=== PATIENT | female | born 1950 | race Caucasian/White ===

== ENCOUNTER 2025-01-14 03:48 | Outpatient (CLI) | payer MEDICARE, SELFPAY | END 2025-01-14 03:49 | disposition home or self-care (01) | LOC: AMB 01-16 08:35 | PROVIDERS: PCP Family Medicine; Visit Provider Family Medicine | DX: S89.92XA Unspecified injury of left lower leg, initial encounter (principal); S59.912A Unspecified injury of left forearm, initial encounter; W18.30XA Fall on same level, unspecified, initial encounter; Y92.002 Bathroom of unspecified non-institutional (private) residence as the place of occurrence of the external cause | CPT/HCPCS: A0425; A0427 ==

== ENCOUNTER 2025-01-14 04:37 | Inpatient (IN) | payer MEDICARE, SELFPAY ==
--- OUTSIDE RECORDS SUMMARY | 2022-05-26 06:48 | XMS_ITS | Continuity of Care Document ---
Author Organization [facility] Address [address] [address] [place] [address] Phone Care Team Providers Care Actuarial Science Professor Name Role Phone Elías Pérez MD Unavailable Unavailabl e Advance Directives Directive Yes / No Effective Date File Name No Information Encounters Encounter Description Practice Location Reason(s) For Visit Diagnoses Date Provider Providers Copied on Encounter [facility], [address] [address], [place], [place], [id number], tel:[phone] [facility] No Information 2 Elijah Mckinley. [address] [facility], [address], [id number] , [place]. tel:[phone] [facility], [address] [address], [place], [place], [id number], [place] tel:[phone] [facility] No Information 2 Elijah Mckinley. [address] [facility], [address], [id number] , [place]. tel:[phone] [facility], [address] [address], [place], [place], [id number], [place] [phone] [facility] External Referral 5 Julián Brown. [address] [facility], [address], [id number] , [place]. tel:[phone] Referring Provider: Becca Troy MD L, [address] [facility] [address], [place], [address]. tel:[phone] Family History Family Member Type Diagnosis Age [...]
[2025-01-14] VITALS (39 sets, daily range): BP systolic 83–142; BP diastolic 25–85; PULSE 73–122; RESP 12–20; TEMP 35.8–36.9; O2SAT 88–96; BMI 23.6
--- NOTE | 2025-01-14 04:40 | ED.FALL ---
HPI - Fall General Time Seen by Provider: 04:41 Date Seen: 01/14/25 Chief Complaint: Fall/Minor Trauma Stated Complaint: fall, left arm and hip pain Time Seen by Provider: 01/14/25 04:39 Source: patient and EMS Mode of arrival: EMS Limitations: no limitations History of Present Illness HPI Narrative: 74-year-old female presents today after a fall. Patient since she got up to go to the bathroom and lost her balance. Denies chest pain, palpitations, lightheadedness. Denies recent illness. Complains are pain in the left arm and left leg. Denies head injury or loss of conscious. Related Data Home Medications ?Medication ?Instructions ?Recorded ?Confirmed clomipramine 50 mg capsule 50 mg PO BID 01/14/25 01/14/25 meclizine 25 mg tablet 25 mg PO DAILY PRN dizziness 01/14/25 01/14/25 omeprazole 20 mg capsule,delayed 20 mg PO QAM 01/14/25 01/14/25 release Previous Rx's ?Medication ?Instructions ?Recorded peg 3350-electrolytes 236 240 ml PO Q10M #4,000 mL 04/05/23 gram-22.74 gram-6.74 gram-5.86 gram solution (Golytely) Allergies Allergy/AdvReac Type Severity Reaction Status Date / Time codeine Allergy Mild Vomiting Verified 01/14/25 04:57 hydrocodone Allergy Mild Anxiety Verified 01/14/25 04:57 Penicillins Allergy Unknown Verified 01/14/25 04:57 PFSH PFS Medical History (Updated 01/14/25 @ 06:30 by Tom Perez MD) Kidney stone ?N20.0 - Calculus of kidney (ICD-10) GERD (gastroesophageal reflux disease) ?K21.9 - Gastro-esophageal reflux disease without esophagitis (ICD-10) Depression ?F32.A - Depression, unspecified (ICD-10) Septic shock due to Escherichia coli ?A41.51 - Sepsis due to Escherichia coli [E. 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.4 - Kidney donor (ICD-10) Meniere disease ?H81.09 - Meniere's disease, unspecified ear (ICD-10) COPD (chronic obstructive pulmonary disease) ?J44.9 - Chronic obstructive pulmonary disease, unspecified (ICD-10) H/O traumatic brain injury ?Z87.820 - Personal history of traumatic brain injury (ICD-10) DIC (disseminated intravascular coagulation) ?D65 - Disseminated intravascular coagulation [defibrination syndrome] (ICD-10) Acute hypoxic respiratory failure ?J96.01 - Acute respiratory failure with hypoxia (ICD-10) Social History Smoking Status: Former smoker What tobacco products do you use: cigarettes Smoking packs per day: 0.8 Smoking cigarettes per day: 16.0 Years smoked: 50 Smoking pack-years: 40.00 Smoking quit date/years: <= 15 years ago Do you use any of these nicotine containing products: None Second hand tobacco smoke exposure: No How often do you have a drink containing alcohol: never AUDIT-C Alcohol total score: 0 Non-prescribed substance use: denies use service: No Exam Narrative: Exam Narrative: General: Well-developed and well-nourished, no acute distress Head: Atraumatic and normocephalic Eyes: Pupils are equal reactive, extraocular motions intact, conjunctiva clear ENT: External nose and ears are normal, posterior pharynx without erythema or exudate Neck: No midline cervical tenderness, full spontaneous range of motion the neck, trachea midline, no adenopathy Heart: Regular rate and rhythm no murmurs or thrills Lungs: Clear to auscultation bilaterally without wheezes or crackles Abdomen: Soft, nontender, nondistended with active bowel sounds Musculoskeletal: Tenderness of the left shoulder and left hip and femur Neurologic: Awake, alert, and oriented x3, no gross focal neurologic deficits, cranial nerves intact as tested Psych: Mood and affect are appropriate Skin: No rashes Const: Vital Signs, click to edit/add: Vital Signs - 24 hr 01/14/25 04:46 01/14/25 04:52 01/14/25 06:25 Temperature 97.6 F Pulse Rate 97 99 Pulse Rate [Pulse Oximeter] 96 Respiratory Rate 18 Blood Pressure 129/65 142/85 H Blood Pressure [Ri ght Upper Arm] 129/65 Pulse Oximetry 94 91 Oxygen Delivery Me thod Room Air Oxygen Flow Rate 01/14/25 06:45 01/14/25 07:00 Temperature Pulse Rate 87 86 Pulse Rate [Pulse Oximeter] Respiratory Rate Blood Pressure Blood Pressure [Ri ght Upper Arm] Pulse Oximetry 88 90 Oxygen Delivery Me thod OxyMask OxyMask Oxygen Flow Rate 1 1 Course Course ED Course: Patient seen examined on EMS arrival. Reviewed most recent primary care visit from May 2024 which was an encounter for annual wellness exam with specific concerns depression, anemia.. Patient presents today after fall at home, so she got up toward the bathroom lost her balance. The atrial it is conscious, no external signs of head trauma with head CT is ordered due to age. Complains predominantly left arm and left hip pain apparent on exam she has tenderness of the left humerus and left proximal femur and hip. X-rays are ordered along with Dilaudid IV. Anticipate humerus and hip fractures, need for admission. Reevaluation(s) Time of Reevaluation #1: 06:22 Reevaluation #1: X-ray of the left shoulder and fell interpreted by me demonstrates a displaced humeral neck fracture. X-ray of the hip shows a comminuted intertrochanteric fracture. Chest x-ray independently interpreted by me negative for acute intrathoracic abnormality. Paged Orthopedics to discuss admission. EKG independently interpreted by me performed at 5:31 a.m. demonstrates sinus rhythm with PAC rate 97, QTC 469, LA 152, no acute ischemic changes, normal axis. No prior for comparison. Time of Reevaluation #2: 06:53 Reevaluation #2: Care discussed with NATIVIDAD Hart with Orthopedics who will review images but patient should be able to be admitted for surgery to [facility]. Updated patient findings and plan. Reviewed radiology interpretation of head CT and neck CT which both were negative for acute findings. Time of Reevaluation #3: 07:17 Reevaluation #3: Care discussed with Dr. Albert, orthopedics who feels patient can be admitted to [facility] for surgery. Care discussed with Dr. Robertson for admission, requests a VBG and lactate Vital Signs Vital signs: Initial Vital Signs Temperature 97.6 F 01/14/25 04:46 Temperature Source Temporal Artery Scan 01/14/25 04:46 Pulse Rate 96 01/14/25 04:46 Respiratory Rate 18 01/14/25 04:46 Blood Pressure 129/65 01/14/25 04:46 Blood Pressure Mean 86 01/14/25 04:46 Blood Pressure Position Supine 01/14/25 04:46 Pulse Oximetry 94 01/14/25 04:46 Oxygen Delivery Method Room Air 01/14/25 04:46 Vital Signs Temperature 97.6 F 01/14/25 04:46 Pulse Rate 96 01/14/25 04:46 Respiratory Rate 18 01/14/25 04:46 Blood Pressure 129/65 01/14/25 04:46 Pulse Oximetry 94 01/14/25 04:46 Oxygen Delivery Method Room Air 01/14/25 04:46 Temperature 97.6 F 01/14/25 04:46 Pulse Rate 86 01/14/25 07:00 Respiratory Rate 18 01/14/25 04:46 Blood Pressure 142/85 H 01/14/25 06:25 Pulse Oximetry 90 01/14/25 07:00 Oxygen Delivery Method OxyMask 01/14/25 07:00 Oxygen Flow Rate 1 01/14/25 07:00 Medications Administered Medications: Generic Name Dose Route Start Last Admin Trade Name Freq PRN Reason Stop Dose Admin Hydromorphone HCl 0.3 mg 01/14/25 05:42 01/14/25 06:25 Hydromorphone 0.5 Mg/0.5 Ml Inj IVP 0.3 mg Q2H PRN Administration Pain Discontinued Medications Generic Name Dose Route Start Last Admin Trade Name Freq PRN Reason Stop Dose Admin Diazepam 2 mg 01/14/25 06:42 01/14/25 06:55 Diazepam 5 Mg/Ml Inj IV 01/14/25 06:43 2 mg ONCE ONE Administration Hydromorphone HCl 0.5 mg 01/14/25 04:53 01/14/25 04:59 Hydromorphone 0.5 Mg/0.5 Ml Inj IVP 01/14/25 04:54 0.5 mg ONCE ONE Administration MDM - Fall Lab Data Labs: Lab Results 01/14/25 Range/Units 05:25 WBC 14.57 H (4.50-11.00) K/uL RBC 3.61 L (4.00-5.20) m/uL Hgb 9.0 L (12.0-16.0) gm/dL Hct 28.8 L (33.0-51.0) % MCV 80 (80-100) fL MCH 25 L (26-34) pg MCHC 31 L (32-36) gm/dL RDW Coeff of Dontae 21.1 H (11.5-15.5) % Plt Count 331 (140-440) K/uL Neut % (Auto) 84.1 H (42.0-72.0) % Lymph % (Auto) 6.9 L (20-44) % [place] % (Auto) 4.7 (0.0-11.0) % Eos % (Auto) 1.0 (0.0-7.0) % Baso % (Auto) 0.8 (0.0-3.0) % Neut # (Auto) 12.30 H (1.7-7.0) K/uL Lymph # (Auto) 1.00 (0.90-2.90) K/uL [place] # (Auto) 0.70 (0.00-0.90) K/UL Eos # (Auto) 0.10 (0.00-0.50) K/uL Baso # (Auto) 0.10 (0.00-0.30) K/uL Abs Immat Gran (auto) 0.40 H (0.00-0.30) K/uL Imm/Tot Granulo (auto) 2.5 % Sodium 130 L (135-149) mmol/L Potassium 4.6 (3.6-5.1) mmol/L Chloride 100 (96-114) mmol/L Carbon Dioxide 23 (20-32) mmol/L Anion Gap 7 (7-15) mEq/L BUN 15 (7-30) mg/dL Creatinine 0.9 (0.5-1.5) mg/dL Estimated GFR 66 ml/min Glucose 116 H (60-115) mg/dL Calcium 8.7 (8.4-10.6) mg/dL Discharge Plan Discharge Clinical Impression: Closed left humeral fracture, Displaced intertrochanteric fracture of left femur, initial encounter for closed fracture, COPD (chronic obstructive pulmonary disease) Patient Disposition: Admitted As Observation
--- OUTSIDE RECORDS SUMMARY | 2025-01-14 04:40 | XMS_ITS | Encounter Summary ---
Author Organization [facility] Address [address] [address] Care Team Providers Care Director Business Name Role Phone Becca Troy MD Primary Care Provider [phone] Encounter Details Date Type Department Care Team (Latest Contact Info) Description 04/13/1995 Orders Only Jolly Kinney MD Social History Tobacco Use Types Packs/Day Years Used Date Smoking Tobacco: Never Assessed Comments Unknown Sex and Gender Information Value Date Recorded Sex Assigned at Not on file Legal Sex Female 3:36 AM CDT Gender Identity Not on file Sexual Orientation Not on file documented as of this encounter Plan of Treatment Not on file documented as of this encounter Visit Diagnoses Not on filedocumented in this encounter Care Teams Director Business Relationship Specialty Start Date End Date Becca Troy MD [address] [place] [address] PCP - General 07/07/05 documented as of this encounter
--- OUTSIDE RECORDS SUMMARY | 2025-01-14 04:40 | XMS_ITS | Encounter Summary ---
[facility] Address [address] [place] [address] Care Team Providers Care Bundle Cutter Name Role Phone Becca Troy MD Primary Care Provider [phone] Encounter Details Date Type Department Care Team (Late st Contact Info) Description 06/21/1996 Orders Only [facility] Genna Mireles MD [address] [place], [place] [address] Social History Tobacco Use Types Packs/Day Years [...] on filedocumented in this encounter Care Teams Bundle Cutter Relationship Specialty Start Date End Date Becca Troy MD [address] [place] [address] PCP - General 07/07/05 documented as of this encounter
--- OUTSIDE RECORDS SUMMARY | 2025-01-14 04:40 | XMS_ITS | Encounter Summary ---
Author Organization [facility] Address [address] [address] Care Team Providers Care Vice President Of Talent Management Name Role Phone Becca Troy MD Primary Care Provider [phone] Encounter Details Date Type Department Care Team (Latest Contact Info) Description 07/28/1995 Orders Only Dinesh Dinero MD Social History Tobacco Use Types Packs/Day [...] on filedocumented in this encounter Care Teams Vice President Of Talent Management Relationship Specialty Start Date End Date Becca Troy MD [address] [place] [address] PCP - General 07/07/05 documented as of this encounter
--- OUTSIDE RECORDS SUMMARY | 2025-01-14 04:40 | XMS_ITS | Encounter Summary ---
Author Organization [facility] Address [address], [place] [address] Care Team Providers Care Sap Business Analyst Name Role Phone Becca Troy MD Primary Care Provider [phone] Encounter Details Date Type Department Care Team (Latest Contact Info) Description 12/14/1994 Orders Only Dinesh Dinero MD Social History [...] on filedocumented in this encounter Care Teams Sap Business Analyst Relationship Specialty Start Date End Date Becca Troy MD [address] [place] [address] PCP - General 07/07/05 documented as of this encounter
--- OUTSIDE RECORDS SUMMARY | 2025-01-14 04:40 | XMS_ITS | Encounter Summary ---
Author Organization [facility] Address [address] [address] Care Team Providers Care Produce Inspector Name Role Phone Becca Troy MD Primary Care Provider [phone] Encounter Details Date Type Department Care Team (Latest Contact Info) Description 02/27/1996 Orders Only Víctor Browne MD Social History Tobacco Use Types Packs/Day [...] on filedocumented in this encounter Care Teams Produce Inspector Relationship Specialty Start Date End Date Becca Troy MD [address] [place] [address] PCP - General 07/07/05 documented as of this encounter
--- OUTSIDE RECORDS SUMMARY | 2025-01-14 04:40 | XMS_ITS | Encounter Summary ---
[facility] Address [address] [place] [address] Care Team Providers Care Nanny Caregiver Name Role Phone Becca Troy MD Primary Care Provider [phone] Encounter Details Date Type Department Care Team (Late st Contact Info) Description 04/07/2004 Consent for Procedure/Treatmen t External to External, [place] [address] KIDNEY DONOR CONSENT FORM Social History Tobacco Use Types Packs/Day Years Used Date Smoking Tobacco: Every Day Cigarettes Alcohol Use Standard Drinks/Week Comments Not Asked 0 (1 standard drink = 0.6 oz pur e alcohol) Comments No Sex and Gender Information Value Date Recorded Sex Assigned at Not on file Legal Sex Female 3:36 AM CDT Gender Identity Not on file Sexual Orientation Not on file documented as of this encounter Progress Notes * External, Provider - 04/07/2004 12:00 AM CDT FIELD PERSON documented in this encounter Plan of Treatment Not on file documented as of this encounter Visit Diagnoses Not on filedocumented in this encounter Care Teams Nanny Caregiver Relationship Specialty Start Date End Date Becca Troy MD [address] [place] [address] PCP - General 07/07/05 documented as of this encounter
--- OUTSIDE RECORDS SUMMARY | 2025-01-14 04:40 | XMS_ITS | Encounter Summary ---
Author Organization [facility] Address [address] [place] [address] Care Team Providers Care Dermatopathologist Name Role Phone Becca Troy MD Primary Care Provider [phone] Encounter Details Date Type Department Care Team (Late st Contact Info) Description 07/11/2014 Outside Hospital External to [facility] DISCHARGE SUMMARY Social History Tobacco Use Types Packs/Day Years Used Date Smoking Tobacco: Former Cigarettes 0.8 48 1 - 05/19/2009 Smokeless Tobacco: Never Alcohol Use Standard Drinks/Week Comments No 0 (1 standard drink = 0.6 oz pur e alcohol) Comments No Sex and Gender Information Value Date Recorded Sex Assigned at Not on file Legal Sex Female 3:36 AM CDT Gender Identity Not on file Sexual Orientation Not on file Occupation Industry Job Start Date Job End Date disability Not on file Not on file Not on file documented as of this encounter Plan of Treatment Not on file documented as of this encounter Visit Diagnoses Not on filedocumented in this encounter Care Teams Dermatopathologist Relationship Specialty Start Date End Date Becca Troy MD [address] [place] [address] PCP - General 07/07/05 documented as of this encounter
--- OUTSIDE RECORDS SUMMARY | 2025-01-14 04:40 | XMS_ITS | Encounter Summary ---
Author Organization [facility] Address [address], [place] [address] Care Team Providers Care Cycle Liaison Name Role Phone Becca Troy MD Primary Care Provider [phone] Encounter Details Date Type Department Care Team (Latest Contact Info) Description 11/08/1995 Orders Only Víctor Browne MD Social History [...] on filedocumented in this encounter Care Teams Cycle Liaison Relationship Specialty Start Date End Date Becca Troy MD [address] [place] [address] PCP - General 07/07/05 documented as of this encounter
--- OUTSIDE RECORDS SUMMARY | 2025-01-14 04:40 | XMS_ITS | Encounter Summary ---
Author Organization [facility] Address [address] [place] [address] Care Team Providers Care Stenotype Machine Operator Name Role Phone Becca Troy MD Primary Care Provider [phone] Encounter Details Date Type Department Care Team (Latest Contact Info) Description 08/30/2003 Hospital [facility] Abdi Rios MD [address] [place] [id number] Social History Tobacco Use Types Packs/Day Years Used Date Smoking Tobacco: Former Cigarettes 0.8 48 1 - 05/19/2009 Smokeless Tobacco: Never Alcohol Use Standard Drinks/Week Comments Yes 0 (1 standard drink = 0.6 oz pur e alcohol) couple beers Comments No Sex and Gender Information Value Date Recorded Sex Assigned at Not on file Legal Sex Female 3:36 AM CDT Gender Identity Not on file Sexual Orientation Not on file Occupation Industry Job Start Date Job End Date disability Not on file Not on file Not on file documented as of this encounter Procedure Notes * Abdi Rios - 08/30/2003 12:00 AM RANCH HELPER DATE OF SURGERY: 08/30/2003 STAFF SURGEON: Abdi Rios MD PREOPERATIVE DIAGNOSIS: 1. Exertional dyspnea with recent treadmill stress echocardiogram suggesting possible anterior and anteroapical ischemia. 2. Continuing cigarette smoker. 3. Normal lipid profile for individual without known coronary artery disease. 4. 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 POSTOPERATIVE DIAGNOSIS: 1. Angiographic focal epicardial obstructive coronary artery disease. 2. Mildly elevated left ventricular end-diastolic pressure suggesting possible left ventricular diastolic abnormality/dysfunction. 3. Normal left ventricular chamber size and systolic function. NAME OF OPERATION: Left heart catheterization, left ventriculogram, selective mille lacs vessel diagnostic coronary angiography. INDICATIONS: The patient is a 52-year-old female, cigarette smoker who has experienced exertional dyspnea. To assess this, she recently underwent an exercise treadmill stress echocardiogram which was technically difficult, but suggested possible mid anterior and anteroapical inducible ischemia and adequate heart rate. She was seen in consultation by Dr. Gennaro Bella of the [facility] who recommend invasive evaluation. The patient has been admitted to the outpatient care unit at [place], [place] today for performance of the above mentioned procedures. I have been asked to perform these procedures. I met with the patient and her prior to performing the procedures and have discussed with them the rational for the procedure, how the procedures would be performed, as well as potential risk and complications (the latter 2 include, but not exclusive of the following: Pain, bleeding, infection, damage to the access vessels, the great vessels of the heart or the heart itself, possible athero or thromboemboli with potential central nervous system, ocular, renal, cardiac or extremity damage, dysrhythmia, contrast reaction or ; variable success and restenosis rate with angioplasty procedures, potential of abrupt persisting vessel closure and need for urgent surgical revascularization etc.) and verbal as well as written consent to proceed was obtained. PROCEDURE: A right femoral artery access approach was utilized and the patient was prepped and draped in usual sterile manner. She was given small aliquots of intravenous Versed for sedation as well as intravenous fentanyl for analgesia. The right femoral artery was identified by fluoroscopically locating the medial border of the right femoral head, by identifying the maximum pulsation in the right groin area (right femoral artery pulse is 2+ on a scale of 0 to 4+) and by identifying usual and customary landmarks in the right groin area. 10 cc 1% lidocaine solution were instilled into the skin and subcutaneous tissues overlying and surrounding the right femoral artery. A single puncture was made through the anterior wall of the right femoral artery with good pulsatile blood return, followed by easy passage of a stainless steel guidewire and placement of a 4 Mexican vascular sheath. Diagnostic mille lacs vessel coronary angiography was then performed using 4 Mexican diagnostic catheters (JL 4, JR 4) and biplane imaging with nonionic contrast. A formal left heart catheterization was performed using a 145 degree angulated pigtail catheter. The same pigtail catheter was utilized for performance of a biplane left ventriculogram with imaging in a 30 degrees PICHARDO and 60 degrees TURKISH projections using 45 cc of nonionic contrast. All contrast was administered utilizing an PrintFu power injector device. The patient tolerated the procedure well without chest discomfort, dysrhythmia or hemodynamic deterioration. The angiographic findings were communicated to her in the laboratory. There was no role or need for revascularization. The procedure was terminated. She received 100 cc of nonionic contrast with total fluoroscopic time being 2.7 minutes. She was transported back to the outpatient care where her sheath will be removed and hemostasis will be achieved by direct local manual compression. I met with the patient and her in the outpatient care unit, reviewed the findings with them as well as our present recommendations. DIAGNOSTIC FINDINGS FLUOROSCOPY: There is no evidence of epicardial coronary artery calcification. There is no calcification of cardiac valvular structures or the thoracic aorta. CORONARY ANGIOGRAPHY LEFT MAIN CORONARY ARTERY: This is a larger caliber vessel without angiographic evidence of focal obstructive disease which bifurcates. LEFT CIRCUMFLEX CORONARY ARTERY: This is a nondominant vessel. This vessel gives origin to one moderate tortuous angiographic caliber first obtuse marginal branch which does not have angiographic evidence of focal obstructive disease. LEFT ANTERIOR DESCENDING CORONARY ARTERY: This is a dominant vessel. The first diagonal branch is f smaller angiographic caliber and bifurcates in its mid portion. The diagonal branch and its branches are free of angiographic evidence of focal obstructive disease. Minor luminal irregularity is suggested in the mid left anterior descending, but there are no significant obstructive lesions. The left anterior descending is of smaller caliber in its mid and apical segments. RIGHT CORONARY ARTERY: This is a moderate caliber dominant tortuous vessel. There is a small angiographic caliber right posterior descending coronary artery branch and a diminutive angiographic caliber right posterolateral left ventricular branch. There was no angiographic evidence of focal obstructive disease in the parent right coronary artery or its major branches. No collateral vessel cutoffs or ulcerated plaques are evident. MIRA III flow is present in each of the epicardial coronary arteries and their branches. HEMODYNAMICS: Left ventricular pressure 92/14 ascending aorta pressure 98/59 with a mean of 77. LEFT VENTRICULOGRAM: The biplane left ventriculogram shows left ventricular chamber size to be normal without regional wall motion abnormalities or angiographic mitral insufficiency. Global LV systolic function appears to be well preserved with a visually estimated ejection fraction of greater than or equal to 65%. ASSESSMENT, DISCUSSION AND RECOMMENDATIONS: This lady does not have angiographic evidence of significant focal epicardial obstructive coronary artery disease and would not benefit from, nor does she require myocardial revascularization. The most likely etiology for her dyspnea is her continued cigarette usage and physically deconditioning state at this point in time. It would not be unreasonable to have her undergo a full formal transthoracic echocardiogram to look for other potential cardiac causes of dyspnea (i.e. left ventricular hypertrophy, right-sided valvular structural or functional changes, diastolic dysfunction etc.) and this will be ordered. She should follow up with her primary care provider for review of these test results. I have strongly suggested she follow up with her primary care provider for aid in smoking cessation efforts and have stressed the importance of smoking cessation. Some weight reduction would be beneficial. As long as she is smoking, she should probably take 81 mg of aspirin daily. Her lipid profile was quite favorable and it's hard to suggest a lipid lowering pharmacologic therapy at this point in time. An aerobic exercise program as she tolerates would appear to be safe. She will be kept at bedrest for 4 hours post sheath removal, then will be allowed to ambulate and if her groin access site is stable will be discharged to home to limit her physical activities over the next 48 hours. glt Dictated: 08/30/2003 09:03:02 Abdi Rios MD Transcribed: 08/30/2003 10:35:54 Doc #: [id number] cc: Víctor Browne MD Cardiac Catheterization Lab Gennaro Bella II, MD DO NOT SIGN UNLESS PRESENT FOR PROCEDURE I attest that I was present for and participated in the sandoval portions of this procedure(s) in compliance with the Health Care Financing Administration Teaching Physician Guidelines. Signed Date Regions Staff Physician Page 2 Patient Name: JESSICA BURDICK Visit Date: 08/30/2003 OUTPATIENT OPERATIVE REPORT CONFIDENTIAL MEDICAL RECORD [address] [id number] Page 1 Patient: [id number] Date of : 1950 Visit Date: 08/30/2003 OUTPATIENT OPERATIVE REPORT H HELPER documented in this encounter Plan of Treatment Not on file documented as of this encounter Visit Diagnoses Not on filedocumented in this encounter Care Teams Stenotype Machine Operator Relationship Specialty Start Date End Date Becca Troy MD [address] [place] [address] PCP - General 07/07/05 documented as of this encounter
--- OUTSIDE RECORDS SUMMARY | 2025-01-14 04:40 | XMS_ITS | Encounter Summary ---
Author [facility] Address [address] [place] [address] Care Team Providers Care Tarp Repairer Name Role Phone Becca Troy MD Primary Care Provider [phone] Encounter Details Date Type Department Care Team (Late st Contact Info) Description 07/12/2014 Outside Hospital External to [facility] Social History Tobacco Use Types Packs/Day Years [...] on filedocumented in this encounter Care Teams Tarp Repairer Relationship Specialty Start Date End Date Becca Troy MD [address] [place] [address] PCP - General 07/07/05 documented as of this encounter
--- OUTSIDE RECORDS SUMMARY | 2025-01-14 04:40 | XMS_ITS | Encounter Summary ---
Author [facility] Address [address] [place] [address] Care Team Providers Care Intellectual Property Legal Assistant Name Role Phone Becca Troy MD Primary Care Provider [phone] Encounter Details Date Type Department Care Team (Late st Contact Info) Description 07/04/2014 Outside Hospital External to DETERMINATION OF REHABILITATION NEEDS Social History Tobacco Use Types Packs/Day Years [...] on filedocumented in this encounter Care Teams Intellectual Property Legal Assistant Relationship Specialty Start Date End Date Becca Troy MD [address] [place] [address] PCP - General 07/07/05 documented as of this encounter
--- OUTSIDE RECORDS SUMMARY | 2025-01-14 04:40 | XMS_ITS | Encounter Summary ---
Author Organization [facility] Address [address], [place] [address] Care Team Providers Care Financial Systems Manager Name Role Phone Becca Troy MD Primary Care Provider [phone] Encounter Details Date Type Department Care Team (Latest Contact Info) Description 06/06/2019 Correspondence None No Primary/Referring, Phy VACCINE PAW Social History Tobacco Use Types Packs/Day Years Used Date Smoking Tobacco: Former Cigarettes 0.8 48 1 - 05/19/2009 Smokeless Tobacco: Never Alcohol Use Standard Drinks/Week Comments Yes 0 (1 standard drink = 0.6 oz pur e alcohol) occassional Comments No Sex and Gender Information Value [...] on filedocumented in this encounter Care Teams Financial Systems Manager Relationship Specialty Start Date End Date Becca Troy MD [address] [place] [address] PCP - General 07/07/05 documented as of this encounter
--- OUTSIDE RECORDS SUMMARY | 2025-01-14 04:40 | XMS_ITS | Encounter Summary ---
Author Organization [facility] Address [address] [address] Care Team Providers Care Cross Tie Turner Name Role Phone Becca Troy MD Primary Care Provider [phone] Encounter Details Date Type Department Care Team (Latest Contact Info) Description 12/22/1995 Orders Only Dinesh Dinero MD Social History [...] on filedocumented in this encounter Care Teams Cross Tie Turner Relationship Specialty Start Date End Date Becca Troy MD [address] [place] [address] PCP - General 07/07/05 documented as of this encounter
--- OUTSIDE RECORDS SUMMARY | 2025-01-14 04:40 | XMS_ITS | Encounter Summary ---
Author Organization [facility] Address [address], [place] [address] Care Team Providers Care Anthropologist Physical Name Role Phone Becca Troy MD Primary Care Provider [phone] Encounter Details Date Type Department Care Team (Latest Contact Info) Description 07/23/1998 Orders Only Tammy Card MD [address] [facility] [address] [place], [place] [address] Social History Tobacco Use Types Packs/Day Years [...] on filedocumented in this encounter Care Teams Anthropologist Physical Relationship Specialty Start Date End Date Becca Troy MD [address] [place] [address] PCP - General 07/07/05 documented as of this encounter
--- OUTSIDE RECORDS SUMMARY | 2025-01-14 04:40 | XMS_ITS | Encounter Summary ---
Author Organization [facility] Address [address] [place] [address] Care Team Providers Care Line Repairer Name Role Phone Becca Troy MD Primary Care Provider Encounter Details Date Type Department Care Team (Late st Contact Info) Description 07/09/2014 Scanned History External to Transferred Record, Provider ADDY CRUZ Social History Tobacco Use Types Packs/Day Years [...] on filedocumented in this encounter Care Teams Line Repairer Relationship Specialty Start Date End Date Becca Troy MD [address] [place] [address] PCP - General 07/07/05 documented as of this encounter
--- OUTSIDE RECORDS SUMMARY | 2025-01-14 04:40 | XMS_ITS | Encounter Summary ---
Author Organization [facility] Address [address], [place] [address] Care Team Providers Care Stock Sorter Name Role Phone Becca Troy MD Primary Care Provider [phone] Encounter Details Date Type Department Care Team (Latest Contact Info) Description 10/03/1995 Orders Only Víctor Browne MD Social History [...] on filedocumented in this encounter Care Teams Stock Sorter Relationship Specialty Start Date End Date Becca Troy MD [address] [place] [address] PCP - General 07/07/05 documented as of this encounter
--- OUTSIDE RECORDS SUMMARY | 2025-01-14 04:40 | XMS_ITS | Encounter Summary ---
Author Organization [facility] Address [address], [place] [address] Care Team Providers Care Gum Machine Operator Name Role Phone Becca Troy MD Primary Care Provider [phone] Encounter Details Date Type Department Care Team (Latest Contact Info) Description 12/01/1994 Orders Only Víctor Browne MD Social History [...] on filedocumented in this encounter Care Teams Gum Machine Operator Relationship Specialty Start Date End Date Becca Troy MD [address] [place] [address] PCP - General 07/07/05 documented as of this encounter
--- OUTSIDE RECORDS SUMMARY | 2025-01-14 04:40 | XMS_ITS | Encounter Summary ---
Author Organization [facility] Address [address] [place] [address] Care Team Providers Care Kiln Firer Name Role Phone Becca Troy MD Primary Care Provider [phone] Encounter Details Date Type Department Care Team (Late st Contact Info) Description 07/09/2014 Scanned History External to Transferred Record, Provider ADDY LANZA [facility] Social History Tobacco Use Types Packs/Day Years [...] on filedocumented in this encounter Care Teams Kiln Firer Relationship Specialty Start Date End Date Becca Troy MD [address] [place] [address] PCP - General 07/07/05 documented as of this encounter
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
--- OUTSIDE RECORDS SUMMARY | 2025-01-14 04:40 | XMS_ITS | Encounter Summary ---
[facility] Address [address], [place] [address] Care Team Providers Care Hotel Server Name Role Phone Becca Troy MD Primary Care Provider [phone] Encounter Details Date Type Department Care Team (Late st Contact Info) Description 11/30/2018 Correspondence [facility] [address] [facility] [place] [place] [address] Becca Troy MD [address] [facility] [address] HISTORY PHYSICAL LAB RESULTS Social History Tobacco Use Types Packs/Day Years [...] on filedocumented in this encounter Care Teams Hotel Server Relationship Specialty Start Date End Date Becca Troy MD [address] [place] [address] PCP - General 07/07/05 documented as of this encounter
--- OUTSIDE RECORDS SUMMARY | 2025-01-14 04:40 | XMS_ITS | Encounter Summary ---
Author Organization [facility] Address [address], [place] [address] Care Team Providers Care Product Merchandiser Name Role Phone Becca Troy MD Primary Care Provider [phone] Encounter Details Date Type Department Care Team (Latest Contact Info) Description 11/21/1995 Orders Only Víctor Browne MD Social History [...] on filedocumented in this encounter Care Teams Product Merchandiser Relationship Specialty Start Date End Date Becca Troy MD [address] [place] [address] PCP - General 07/07/05 documented as of this encounter
--- OUTSIDE RECORDS SUMMARY | 2025-01-14 04:40 | XMS_ITS | Encounter Summary ---
Author Organization [facility] Address [address], [place] [address] Care Team Providers Care Rn Women Services Name Role Phone Becca Troy MD Primary Care Provider [phone] Encounter Details Date Type Department Care Team (Latest Contact Info) Description 02/17/1998 Orders Only Dinesh Dinero MD Social History [...] on filedocumented in this encounter Care Teams Rn Women Services Relationship Specialty Start Date End Date Becca Troy MD [address] [place] [id number] PCP - General 07/07/05 documented as of this encounter
--- OUTSIDE RECORDS SUMMARY | 2025-01-14 04:40 | XMS_ITS | Encounter Summary ---
Author Organization [facility] Address [address], [place] [address] Care Team Providers Care Contact Manager Name Role Phone Becca Troy MD Primary Care Provider [phone] Encounter Details Date Type Department Care Team (Latest Contact Info) Description 09/05/1995 Orders Only Víctor Browne MD Social History [...] on filedocumented in this encounter Care Teams Contact Manager Relationship Specialty Start Date End Date Becca Troy MD [address] [place] [address] PCP - General 07/07/05 documented as of this encounter
--- OUTSIDE RECORDS SUMMARY | 2025-01-14 04:40 | XMS_ITS | Encounter Summary ---
Author Organization [facility] Address [address], [place] [address] Care Team Providers Care Machine Rug Cleaner Name Role Phone Becca Troy MD Primary Care Provider Encounter Details Date Type Department Care Team (Latest Contact Info) Description 12/03/1997 Orders Only Hernesto Sloan Social History Tobacco Use Types Packs/Day Years [...] on filedocumented in this encounter Care Teams Machine Rug Cleaner Relationship Specialty Start Date End Date Becca Troy MD [address] [place] [address] PCP - General 07/07/05 documented as of this encounter
--- OUTSIDE RECORDS SUMMARY | 2025-01-14 04:40 | XMS_ITS | Encounter Summary ---
Author Organization [facility] Address [address] [address] Care Team Providers Care Group Dynamics Instructor Name Role Phone Becca Troy MD Primary Care Provider [phone] Encounter Details Date Type Department Care Team (Latest Contact Info) Description 01/14/1998 Orders Only Dinesh Dinero MD Social History [...] on filedocumented in this encounter Care Teams Group Dynamics Instructor Relationship Specialty Start Date End Date Becca Troy MD [address] [place] [address] PCP - General 07/07/05 documented as of this encounter
--- OUTSIDE RECORDS SUMMARY | 2025-01-14 04:40 | XMS_ITS | Encounter Summary ---
Author Organization [facility] Address [address], [place] [address] Care Team Providers Care Caster Investment Casting Name Role Phone Becca Troy MD Primary Care Provider [phone] Encounter Details Date Type Department Care Team (Latest Contact Info) Description 05/01/1997 Orders Only Víctor Browne MD Social History [...] on filedocumented in this encounter Care Teams Caster Investment Casting Relationship Specialty Start Date End Date Becca Troy MD [address] [place] [address] PCP - General 07/07/05 documented as of this encounter
--- OUTSIDE RECORDS SUMMARY | 2025-01-14 04:40 | XMS_ITS | Encounter Summary ---
Author Organization [facility] Address [address], [place] [address] Care Team Providers Care Choir Member Name Role Phone Becca Troy MD Primary Care Provider [phone] Encounter Details Date Type Department Care Team (Latest Contact Info) Description 12/06/1995 Orders Only Dinesh Dinero MD Social History [...] on filedocumented in this encounter Care Teams Choir Member Relationship Specialty Start Date End Date Becca Troy MD [address] [place] [address] PCP - General 07/07/05 documented as of this encounter
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
--- OUTSIDE RECORDS SUMMARY | 2025-01-14 04:40 | XMS_ITS | Encounter Summary ---
Author Organization [facility] Address [address] [address] Care Team Providers Care Kiln Burner Helper Name Role Phone Becca Troy MD Primary Care Provider [phone] Encounter Details Date Type Department Care Team (Latest Contact Info) Description 12/29/1995 Orders Only Tammy Card MD [address] [facility] [address] [place], [place] [id number] Social History Tobacco Use Types Packs/Day Years [...] filedocumented in this encounter Care Teams Kiln Burner Helper Relationship Specialty Start Date End Date Becca Troy MD [address] [place] [address] PCP - General 07/07/05 documented as of this encounter
--- OUTSIDE RECORDS SUMMARY | 2025-01-14 04:40 | XMS_ITS | Encounter Summary ---
Author Organization [facility] Address [address] [address] Care Team Providers Care Melon Packer Name Role Phone Becca Troy MD Primary Care Provider [phone] Encounter Details Date Type Department Care Team (Latest Contact Info) Description 08/05/1998 Orders Only Víctor Browne MD Social History [...] on filedocumented in this encounter Care Teams Melon Packer Relationship Specialty Start Date End Date Becca Troy MD [address] [place] [address] PCP - General 07/07/05 documented as of this encounter
--- OUTSIDE RECORDS SUMMARY | 2025-01-14 04:40 | XMS_ITS | Encounter Summary ---
[facility] Address [address] [place] [address] Care Team Providers Care Permanent Mold Supervisor Name Role Phone Becca Troy MD Primary Care Provider [phone] Encounter Details Date Type Department Care Team (Late st Contact Info) Description 07/03/2014 Outside Hospital External to [facility] OT INITIAL ASSESSMENT Social History Tobacco Use Types Packs/Day Years [...] on filedocumented in this encounter Care Teams Permanent Mold Supervisor Relationship Specialty Start Date End Date Becca Troy MD [address] [place] [address] PCP - General 07/07/05 documented as of this encounter
--- OUTSIDE RECORDS SUMMARY | 2025-01-14 04:40 | XMS_ITS | Encounter Summary ---
Author Organization [facility] Address [address] [address] Care Team Providers Care Senior Product Development Manager Name Role Phone Becca Troy MD Primary Care Provider [phone] Encounter Details Date Type Department Care Team (Latest Contact Info) Description 10/21/1995 Orders Only Víctor Browne MD Social History [...] on filedocumented in this encounter Care Teams Senior Product Development Manager Relationship Specialty Start Date End Date Becca Troy MD [address] [place] [address] PCP - General 07/07/05 documented as of this encounter
--- OUTSIDE RECORDS SUMMARY | 2025-01-14 04:40 | XMS_ITS | Encounter Summary ---
Author Organization [facility] Address [address] [address] Care Team Providers Care Quill Picking Machine Operator Name Role Phone Becca Troy MD Primary Care Provider [phone] Encounter Details Date Type Department Care Team (Latest Contact Info) Description 12/17/1996 Orders Only Dinesh Dinero MD Social History [...] on filedocumented in this encounter Care Teams Quill Picking Machine Operator Relationship Specialty Start Date End Date Becca Troy MD [address] [place] [address] PCP - General 07/07/05 documented as of this encounter
--- OUTSIDE RECORDS SUMMARY | 2025-01-14 04:40 | XMS_ITS | Encounter Summary ---
Author Organization [facility] Address [address] [address] Care Team Providers Care Vp Software Support Name Role Phone Becca Troy MD Primary Care Provider [phone] Encounter Details Date Type Department Care Team (Latest Contact Info) Description 11/29/1996 Orders Only Dinesh Dinero MD Social History [...] on filedocumented in this encounter Care Teams Vp Software Support Relationship Specialty Start Date End Date Becca Troy MD [address] [place] [address] PCP - General 07/07/05 documented as of this encounter
--- OUTSIDE RECORDS SUMMARY | 2025-01-14 04:40 | XMS_ITS | Encounter Summary ---
Author Organization [facility] Address [address], [place] [address] Care Team Providers Care Oil Tester Name Role Phone Becca Troy MD Primary Care Provider [phone] Encounter Details Date Type Department Care Team (Latest Contact Info) Description 11/22/1994 Orders Only Dinesh Dinero MD Social History [...] on filedocumented in this encounter Care Teams Oil Tester Relationship Specialty Start Date End Date Becca Troy MD [address] [place] [address] PCP - General 07/07/05 documented as of this encounter
--- OUTSIDE RECORDS SUMMARY | 2025-01-14 04:40 | XMS_ITS | Encounter Summary ---
Author Organization [facility] Address [address] [address] Care Team Providers Care Placing Judge Name Role Phone Becca Troy MD Primary Care Provider Encounter Details Date Type Department Care Team (Latest Contact Info) Description 03/21/1996 Orders Only Julissa Beverly, CLIENT PORTFOLIO MANAGER, TARPER Social History Tobacco Use Types Packs/Day Years [...] on filedocumented in this encounter Care Teams Placing Judge Relationship Specialty Start Date End Date Becca Troy MD [address] [place] [address] PCP - General 07/07/05 documented as of this encounter
--- OUTSIDE RECORDS SUMMARY | 2025-01-14 04:40 | XMS_ITS | Encounter Summary ---
Author Organization [facility] Address [address], [place] [address] Care Team Providers Care Swatch Clerk Name Role Phone Becca Troy MD Primary Care Provider [phone] Encounter Details Date Type Department Care Team (Latest Contact Info) Description 09/17/1997 Orders Only Víctor Browne MD Social History [...] on filedocumented in this encounter Care Teams Swatch Clerk Relationship Specialty Start Date End Date Becca Troy MD [address] [place] [address] PCP - General 07/07/05 documented as of this encounter
--- OUTSIDE RECORDS SUMMARY | 2025-01-14 04:40 | XMS_ITS | Encounter Summary ---
Author Organization [facility] Address [address] [address] Care Team Providers Care Customer Development Representative Name Role Phone Becca Troy MD Primary Care Provider [phone] Encounter Details Date Type Department Care Team (Latest Contact Info) Description 08/19/1997 Orders Only Dinesh Dinero MD Social History [...] on filedocumented in this encounter Care Teams Customer Development Representative Relationship Specialty Start Date End Date Becca Troy MD [address] [place] [address] PCP - General 07/07/05 documented as of this encounter
--- OUTSIDE RECORDS SUMMARY | 2025-01-14 04:40 | XMS_ITS | Encounter Summary ---
Author Organization [facility] Address [address] [address] Care Team Providers Care Sustainable Design Consultant Name Role Phone Becca Troy MD Primary Care Provider [phone] Encounter Details Date Type Department Care Team (Latest Contact Info) Description 01/09/1999 Orders Only Birdie Rosen, EQUIPMENT INSTALLATION PROFESSIONAL, SPECIAL FORCES OFFICER [address] [address] Social History Tobacco Use Types Packs/Day Years [...] on filedocumented in this encounter Care Teams Sustainable Design Consultant Relationship Specialty Start Date End Date Becca Troy MD [address] [place] [address] PCP - General 07/07/05 documented as of this encounter
--- OUTSIDE RECORDS SUMMARY | 2025-01-14 04:40 | XMS_ITS | Encounter Summary ---
Author Organization [facility] Address [address] [address] Care Team Providers Care Fourth Officer Name Role Phone Becca Troy MD Primary Care Provider [phone] Encounter Details Date Type Department Care Team (Latest Contact Info) Description 1996 Orders Only Víctor Browne MD Social History [...] on filedocumented in this encounter Care Teams Fourth Officer Relationship Specialty Start Date End Date Becca Troy MD [address] [place] [address] PCP - General 07/07/05 documented as of this encounter
--- OUTSIDE RECORDS SUMMARY | 2025-01-14 04:40 | XMS_ITS | Encounter Summary ---
Author Organization [facility] Address [address] [address] Care Team Providers Care Rock Crushing Machine Operator Name Role Phone Becca Troy MD Primary Care Provider [phone] Encounter Details Date Type Department Care Team (Latest Contact Info) Description 09/12/1995 Orders Only Víctor Browne MD Social History [...] on filedocumented in this encounter Care Teams Rock Crushing Machine Operator Relationship Specialty Start Date End Date Becca Troy MD [address] [place] [address] PCP - General 07/07/05 documented as of this encounter
--- OUTSIDE RECORDS SUMMARY | 2025-01-14 04:41 | XMS_ITS | Encounter Summary ---
[facility] Address [address] [place] [address] Care Team Providers Care Access Liaison Name Role Phone Becca Troy MD Primary Care Provider [phone] Encounter Details Date Type Department Care Team (Late st Contact Info) Description 07/28/2016 Consent for Procedure/Treatme nt [facility] INFORMED CONSENT RECORD Social History Tobacco Use Types Packs/Day Years [...] on filedocumented in this encounter Care Teams Access Liaison Relationship Specialty Start Date End Date Becca Troy MD [address] [place] [address] PCP - General 07/07/05 documented as of this encounter
--- OUTSIDE RECORDS SUMMARY | 2025-01-14 04:41 | XMS_ITS | Encounter Summary ---
Author Organization [facility] Address [address], [place] [address] Care Team Providers Care Certified Nurse Operating Room Name Role Phone Becca Troy MD Primary Care Provider [phone] Encounter Details Date Type Department Care Team (Latest Contact Info) Description 02/09/1999 Orders Only Dinesh Dinero MD Social History [...] on filedocumented in this encounter Care Teams Certified Nurse Operating Room Relationship Specialty Start Date End Date Becca Troy MD [address] [place] [address] PCP - General 07/07/05 documented as of this encounter
--- OUTSIDE RECORDS SUMMARY | 2025-01-14 04:41 | XMS_ITS | Encounter Summary ---
Author Organization [facility] Address [address] [address] Care Team Providers Care Digital Media Associate Name Role Phone Becca Troy MD Primary Care Provider [phone] Encounter Details Date Type Department Care Team (Latest Contact Info) Description 03/16/2000 Orders Only Birdie Rosen, CONFIGURATION ANALYST, HARDWARE DESIGNER [address] [address] Social History Tobacco Use Types Packs/Day Years [...] on filedocumented in this encounter Care Teams Digital Media Associate Relationship Specialty Start Date End Date Becca Troy MD [address] [place] [address] PCP - General 07/07/05 documented as of this encounter
--- OUTSIDE RECORDS SUMMARY | 2025-01-14 04:41 | XMS_ITS | Encounter Summary ---
Author Organization [facility] Address [address] [address] Care Team Providers Care Body Press Operator Name Role Phone Becca Troy MD Primary Care Provider [phone] Encounter Details Date Type Department Care Team (Latest Contact Info) Description 04/08/1999 Orders Only Víctor Browne MD Social History [...] on filedocumented in this encounter Care Teams Body Press Operator Relationship Specialty Start Date End Date Becca Troy MD [address] [place] [address] PCP - General 07/07/05 documented as of this encounter
--- OUTSIDE RECORDS SUMMARY | 2025-01-14 04:41 | XMS_ITS | Encounter Summary ---
Author Organization [facility] Address [address], [place] [address] Care Team Providers Care Carpet Technician Name Role Phone Becca Troy MD Primary Care Provider [phone] Encounter Details Date Type Department Care Team (Latest Contact Info) Description 01/07/2000 Orders Only Víctor Browne MD Social History [...] on filedocumented in this encounter Care Teams Carpet Technician Relationship Specialty Start Date End Date Becca Troy MD [address] [place] [address] PCP - General 07/07/05 documented as of this encounter
--- OUTSIDE RECORDS SUMMARY | 2025-01-14 04:41 | XMS_ITS | Encounter Summary ---
Author Organization [facility] Address [address] [address] Care Team Providers Care Statistical Machine Servicer Name Role Phone Becca Troy MD Primary Care Provider [phone] Encounter Details Date Type Department Care Team (Latest Contact Info) Description 12/30/1999 [place] [address] [place], [place] [id number] Social History Tobacco Use Types Packs/Day Years [...] on filedocumented in this encounter Care Teams Statistical Machine Servicer Relationship Specialty Start Date End Date Becca Troy MD [address] [place] [address] PCP - General 07/07/05 documented as of this encounter
--- NOTE | 2025-01-14 04:53 | CRLHL7_ITS ---
For Patients: As a result of the Century Cures Act, medical imaging exams and procedure reports are released immediately into your electronic medical record. You may view this report before your referring provider. If you have questions, please contact your health care provider. Indication: Trauma Technique: A total of two views of the left humerus were acquired. Comparison: None Findings: Bones: Fracture involving the left humeral head and neck. Comminuted. Marked displacement of the humerus relative to the humeral head which is properly located in the glenoid fossa. . There is demineralization Joint spaces: No dislocation Soft tissues: Unremarkable. Impression: Comminuted fracture involving the left humeral head and neck. Marked displacement of the humerus relative to the humeral head. The humerus is located proximal and anterior relative to the humeral head which is properly located in the glenoid fossa. No dislocation. Dictated by Elías Cox MD @ 01/14/2025 6:43:44 AM (Electronically Signed)
--- NOTE | 2025-01-14 04:53 | CRLHL7_ITS ---
For Patients: As a result of the Century Cures Act, medical imaging exams and procedure reports are released immediately into your electronic medical record. You may view this report before your referring provider. If you have questions, please contact your health care provider. INDICATION: Fall. COMPARISON: None. TECHNIQUE: CT of the cervical spine without contrast. Multiplanar axial, coronal, and sagittal reformats were reconstructed. FINDINGS: No cervical spine fracture. Normal alignment. Moderate to severe multilevel disc degenerative change. Moderate to severe multilevel facet arthritis. Multilevel neural foraminal narrowing. No or central canal stenosis. No destructive bony lesions. No cervical prevertebral soft tissue swelling. Severe emphysema in the lung apices. Severely displaced left humeral neck fracture seen on the data typist view. IMPRESSION: 1. Severely displaced left humeral neck fracture seen on the data typist view. 2. No acute or traumatic findings on cervical spine CT. Please note that all CT scans at this facility use dose modulation, iterative reconstruction, and/or weight-based dosing when appropriate to reduce radiation dose to as low as reasonably achievable. Dictated by Maria Victoria Amador MD @ 01/14/2025 6:45:26 AM (Electronically Signed)
--- NOTE | 2025-01-14 04:53 | CRLHL7_ITS ---
For Patients: As a result of the Cures Act, medical imaging exams and procedure reports are released immediately into your electronic medical record. You may view this report before your referring provider. If you have questions, please contact your health care provider. INDICATION: Injury COMPARISON: November 10, 2019 TECHNIQUE: Single-view examination performed as an AP supine portable study FINDINGS: TUBES AND LINES: None. HEART AND MEDIASTINUM: Enlarged heart. Normal mediastinal contour.. LUNGS AND PLEURAL SPACES: The lungs appear normal.The pleural spaces are unremarkable. OSSEOUS STRUCTURES: Age-appropriate appearance. No acute focal finding. IMPRESSION: Enlarged heart. Normal mediastinal contours. Lungs and pleural spaces appear normal. No acute osseous abnormality on this single-view study. Dictated by Elías Cox MD @ 01/14/2025 6:40:01 AM (Electronically Signed)
--- NOTE | 2025-01-14 04:53 | CRLHL7_ITS ---
For Patients: As a result of the Century Cures Act, medical imaging exams and procedure reports are released immediately into your electronic medical record. You may view this report before your referring provider. If you have questions, please contact your health care provider. Indication: Injury Technique: A total of two-view of the left femur were acquired. Comparison: None Findings: Bones: Comminuted displaced left intertrochanteric hip fracture. No fracture distal to the hip joint. Demineralization Joint spaces: Unremarkable. Soft tissues: Unremarkable. Impression: Comminuted displaced left intertrochanteric hip fracture. No fracture distal to the hip joint to the level of the knee. Demineralization. Dictated by Elías Cox MD @ 01/14/2025 6:42:06 AM (Electronically Signed)
--- NOTE | 2025-01-14 04:53 | CRLHL7_ITS ---
For Patients: As a result of the Century Cures Act, medical imaging exams and procedure reports are released immediately into your electronic medical record. You may view this report before your referring provider. If you have questions, please contact your health care provider. INDICATION: Fall. COMPARISON: None. TECHNIQUE: CT of the brain / head without intravenous contrast. Multiplanar axial, coronal, and sagittal reformats were reconstructed. FINDINGS: No intracranial hemorrhage. Generalized age-related parenchymal volume loss. There is some mild encephalomalacia in the posterior right parieto-occipital lobes with 2 small overlying calvarial defects with generalized focal calvarial thinning and irregularity, suggesting a prior significant trauma or surgical intervention. Small area of encephalomalacia in the anterior inferior left middle cranial fossa. No acute or subacute cortically based infarct. Scattered white matter hypodensities may be related to chronic microvascular ischemia. No mass or mass effect. Normal ventricles. No skull fractures. No worrisome focal bone lesion. IMPRESSION: No acute appearing intracranial findings or acute appearing traumatic findings. Please note that all CT scans at this facility use dose modulation, iterative reconstruction, and/or weight-based dosing when appropriate to reduce radiation dose to as low as reasonably achievable. Dictated by Maria Victoria Amador MD @ 01/14/2025 6:42:28 AM (Electronically Signed)
--- NOTE | 2025-01-14 04:53 | CRLHL7_ITS ---
For Patients: As a result of the Cures Act, medical imaging exams and procedure reports are released immediately into your electronic medical record. You may view this report before your referring provider. If you have questions, please contact your health care provider. Indication: Injury Technique: Single view of the pelvis Comparison: None Findings: As described below Impression: 1. Comminuted displaced left intertrochanteric hip fracture. 2. Demineralization. 3. Moderate to severe osteoarthritis of the right hip joint. Moderate to severe degenerative changes of visualized lower lumbar spine. Dictated by Elías Cox MD @ 01/14/2025 6:41:05 AM (Electronically Signed)
[2025-01-14] MEDS: HYDROmorphone 0.5 mg/0.5 ml inj IVP ×3 (04:59→18:26)
[2025-01-14] MEDS: HYDROmorphone 0.5 mg/0.5 ml inj 0.3 MG IVP ×4 (05:30→09:52)
[2025-01-14 05:39] LABS: Basophils Percent Auto 0.8 % (0.0-3.0); Hematocrit 28.8 % (33.0-51.0); Immature Granulocytes Pct Auto 2.5 %; Lymphocytes Percent Auto 6.9 % (20-44); Mean Corpuscular HGB Conc 31 gm/dL (32-36); Mean Corpuscular Hemoglobin 25 pg (26-34); Mean Corpuscular Volume 80 fL (80-100); Monocytes Percent Auto 4.7 % (0.0-11.0); Neutrophils Percent Auto 84.1 % (42.0-72.0); Platelet Count* 331 K/uL (140-440); RDW Coefficient of Variation % 21.1 % (11.5-15.5); Red Blood Count 3.61 m/uL (4.00-5.20); White Blood Count* 14.57 K/uL (4.50-11.00)
[2025-01-14 05:40] LABS: Slide Review Reflex No
[2025-01-14 05:48] LABS: Chloride* 100 mmol/L (96-114); Potassium* 4.6 mmol/L (3.6-5.1); Sodium* 130 mmol/L (135-149)
[2025-01-14 05:50] LABS: Blood Urea Nitrogen* 15 mg/dL (7-30); Creatinine* 0.9 mg/dL (0.5-1.5); Estimated Glomerular Filt Rate 66 ml/min
[2025-01-14 05:51] LABS: Anion Gap 7 mEq/L (7-15); Calcium* 8.7 mg/dL (8.4-10.6); Carbon Dioxide* 23 mmol/L (20-32); Glucose* 116 mg/dL (60-115)
[2025-01-14] MEDS: diazePAM 5 MG/ML inj 2 MG IV (06:55)
[2025-01-14 07:26] LABS: Appearance Urine Clear (Clear); Bilirubin Urine Negative (Negative); Blood Urine Negative (Negative); Color Urine Yellow (Yellow); Glucose Urine Negative (Negative); Ketones Urine Negative (Negative); Leukocyte Esterase Urine Trace (Negative); Nitrite Urine Negative (Negative); Protein Urine Negative (Negative); Specific Gravity Urine <= 1.005 (1.000-1.030); Urobilinogen Urine 0.2 (0.2-1.0); pH Urine 5.5 (5.0-8.5)
[2025-01-14 07:33] LABS: HCO3 VBG 25 mmol/L (21-28); Lactate* 1.2 mmol/L (0.5-1.9); PCO2 VBG 45 mmHG (40-50); PO2 VBG 40.9 mmHG (25-47); pH VBG 7.358 (7.32-7.43)
[2025-01-14 07:40] LABS: RBC Urine 0-2 (0-2); WBC Urine 0-2 (0-5)
[2025-01-14] MEDS: SODIUM CHLORIDE 0.9 % (FLUSH) 10 ML SYRINGE 5 ML IVF (09:23)
--- NOTE | 2025-01-14 09:42 | PM.IMHP1 ---
Assessment and Plan Assessment and plan (1) Displaced intertrochanteric fracture of left femur, initial encounter for closed fracture: Problem comment: - to OR with Dr. Smallwood today Status: Acute (2) Closed left humeral fracture: Problem comment: - Ortho following, likely surgery later this week Status: Acute (3) COPD (chronic obstructive pulmonary disease): Problem comment: - not on supplemental oxygen as an outpatient, no evidence of acute exacerbation - RT referral, will ask pharmacy to confirm inhalers (Breo vs Advair, Spiriva) - requiring low dose supplemental oxygen (likely worsened by opiates) Status: Acute (4) Chronic anemia: Problem comment: - normocytic, no significant abnormalities on outpatient peripheral smear 05/24, no recent colonoscopy per [facility] - follow Hgb during stay Status: Acute (5) Depression: Problem comment: - on Clomipramine as an outpatient, was on 50mg once daily in 05/2024 (at which time her Na was 135 and her dose was increased to 50mg BID) - will decrease to 50mg once/day given current hyponatremia Status: Acute (6) Hyponatremia: Problem comment: - Na of 130, 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 She had gotten up to the use the bathroom and lost her balance; denied any preceding chest pain, dizziness, or lightheadedness. ER: - Comminuted/displaced L intertrochanteric hip fracture - Comminuted L humeral head/neck fracture - No acute findings on CT of head, C-spine, or Chest XRay - presented with O2 saturations of 94% on RA - reassuring VBG and lacate in ER, Na of 130 (was 135 05/2024), Hgb of 9.0 (was 10.6 05/2024) Upon arrival to the floor, noted to have O2 saturations as low as 74% on RA, presumably combination of known COPD + iatrogenic from opiates. Does not wear supplemental oxygen as an outpatient. Orthopedic Surgery has consulted on patient; plans to take to OR today for femur fracture. Awaiting hardware to repair humeral fracture. Review of Systems Status of ROS: Reports: 10 or more systems reviewed and unremarkable except as noted in History and below Medical Decision Making Medical Decision Making Code Status: Full During This Stay, Who Would You Like To Make Decisions For You In The Event You Are Unable To Make Them For Yourself?: Bill Relevant situational information: Daughter in law is an WAFER MOUNTER that works for the [employer] Medical History (Updated 01/14/25 @ 11:45 by Sharon Hogan MD) Kidney stone ?N20.0 - Calculus of kidney (ICD-10) GERD (gastroesophageal reflux disease) ?K21.9 - Gastro-esophageal reflux disease without esophagitis (ICD-10) Depression ?F32.A - Depression, unspecified (ICD-10) Septic shock due to Escherichia coli ?A41.51 - Sepsis due to Escherichia coli [E. coli] (ICD-10) ?R65.21 - Severe sepsis with septic shock (ICD-10) Chronic anemia ?D64.9 - Anemia, unspecified (ICD-10) Hyponatremia ?E87.1 - Hypo-osmolality and hyponatremia (ICD-10) Acute renal failure due to urinary obstruction ?N17.9 - Acute kidney failure, unspecified (ICD-10) ?N13.9 - Obstructive and reflux uropathy, unspecified (ICD-10) Meniere disease ?H81.09 - Meniere's disease, unspecified ear (ICD-10) COPD (chronic obstructive pulmonary disease) ?J44.9 - Chronic obstructive pulmonary disease, unspecified (ICD-10) H/O traumatic brain injury ?Z87.820 - Personal history of traumatic brain injury (ICD-10) DIC (disseminated intravascular coagulation) ?D65 - Disseminated intravascular coagulation [defibrination syndrome] (ICD-10) Surgical History H/O cystoscopy ?Z98.890 - Other specified postprocedural states (ICD-10) S/P ectopic ?Z87.59 - Personal history of other complications of , childbirth and the puerperium (ICD-10) Kidney donor ?Z52.4 - Kidney donor (ICD-10) Social History (Updated 01/14/25 @ 11:30 by Sharon Hogan MD) Narrative: Lives with (Ross) in [place]; he would be medical decision maker if needed. Former cigarette smoker, currently daily THC smoker. Drinks [place] Light daily (amount varies), no history of withdrawal. What is your current living situation?: I presently have a place to live Problems where you live: no known problems Problems where you live details: none In the past 12 months, utilities in danger of being shut off: no In past 12 months, lack of transportation kept you from medical appts, meetings, work, or getting things needed for daily living: no In the past 12 mos, have been you worried that your food would run out before you had money to buy more?: never true In the past 12 mos, the food you bought just didn't last and you didn't have money to buy more?: never true Smoking Status: Former smoker What tobacco products do you use: cigarettes Smoking packs per day: 0.8 Smoking cigarettes per day: 16.0 Years smoked: 50 Smoking pack-years: 40.00 Smoking quit date/years: >15 years ago Do you use any of these nicotine containing products: None Second hand tobacco smoke exposure: No How often do you have a drink containing alcohol: 4 or more times a week Alcohol type: beer Alcohol type details: [place] light- depends on her mood for the day for how many beers she has How many standard drinks containing alcohol do you have on a typical day: 3 or 4 AUDIT-C Alcohol total score: 5 Non-prescribed substance use: marijuana (any form) How often does anyone, including family, friends and others, physically hurt you: never How often does anyone, including family, friends and others, insult or talk down to you: never How often does anyone, including family, friends and others, threaten you with harm: never How often does anyone, including family, friends and others, scream or curse at you: never service: No Meds Home Medications and Allergies Home Medications ?Medication ?Instructions ?Recorded ?Confirmed ?Type clomipramine 50 mg capsule 50 mg PO BID 01/14/25 01/14/25 History fluticasone furoate 200 1 ea inhalation DAILY 01/14/25 01/14/25 History mcg-vilanterol 25 mcg/dose inhalation powder (Breo Ellipta) meclizine 25 mg tablet 25 mg PO DAILY PRN dizziness 01/14/25 01/14/25 History omeprazole 20 mg capsule,delayed 20 mg PO QAM 01/14/25 01/14/25 History release tiotropium bromide 18 mcg capsule 1 cap inhalation DAILY 01/14/25 01/14/25 History with inhalation device (Spiriva with HandiHaler) Home Medication Comments: - unclear if she's taking Spiriva, or if on Breo vs Advair Allergies Allergy/AdvReac Type Severity Reaction Status Date / Time codeine Allergy Mild Vomiting Verified 01/14/25 10:25 hydrocodone Allergy Mild Anxiety Verified 01/14/25 10:25 Exam Narrative: Exam Narrative: GEN: Nontoxic, laying comfortably in bed, wearing supplemental oxygen, answering questions appropriately HEENT: Normal external ears, EOMIs bilaterally, pupils miotic, no scleral icterus CV: RRR, No concerning murmurs R: LCTA bilaterally without concerning wheezing, decreased bibasilar air movement Ext: LLE is shortened, + palpable pulses, normal capillary refill. No concerning LE edema. LUE + distal pulses, significant ttp Skin: No concerning skin lesions or rashes on exposed skin Neuro: No focal deficits, no resting tremor Psych: Appropriate Const: Vital Signs, click to edit/add: Vital Signs - 24 hr 01/14/25 04:46 01/14/25 04:52 01/14/25 06:25 Temperature 97.6 F Pulse Rate 97 99 Pulse Rate [Pulse Oximeter] 96 Respiratory Rate 18 Blood Pressure 129/65 142/85 H Blood Pressure [Ri ght Upper Arm] 129/65 Pulse Oximetry 94 91 Oxygen Delivery Me thod Room Air Oxygen Flow Rate 01/14/25 06:45 01/14/25 07:00 01/14/25 07:00 Temperature Pulse Rate 87 86 Pulse Rate [Pulse Oximeter] Respiratory Rate Blood Pressure Blood Pressure [Ri ght Upper Arm] Pulse Oximetry 88 90 91 Oxygen Delivery Me thod OxyMask OxyMask OxyMask Oxygen Flow Rate 1 1 1 Hospitalist - H&P: Result Labs Labs: Short CBC 01/14/25 Range/Units 05:25 WBC 14.57 H (4.50-11.00) K/uL Hgb 9.0 L (12.0-16.0) gm/dL Hct 28.8 L (33.0-51.0) % Plt Count 331 (140-440) K/uL BMP 01/14/25 05:25 Sodium 130 L Potassium 4.6 Chloride 100 Carbon Dioxide 23 BUN 15 Creatinine 0.9 Glucose 116 H Calcium 8.7 Urine 01/14/25 Range/Units 07:20 Urine Color Yellow (Yellow) Urine Appearance Clear (Clear) Urine pH 5.5 (5.0-8.5) Ur Specific [place] <= 1.005 (1.000-1.030) Urine Protein Negative (Negative) Urine Glucose (UA) Negative (Negative)
[2025-01-14] MEDS: ONDANSETRON 2 MG/ML inj 4 MG IVP (09:52)
[2025-01-14] MEDS: ACETAMINOPHEN 325 MG TABLET 975 MG PO ×3 (09:52→21:48)
--- NOTE | 2025-01-14 10:15 | P.ORCN_ITS ---
History of Present Illness HPI Date Seen: 01/14/25 Chief complaint: fall, left arm and hip pain Narrative: Cindy is a pleasant 74-year-old female. She sustained a fall from a standing height earlier this morning on 01/14/2025. She was going to the bathroom urgently after waking in the middle of her sleep. She was somewhat disoriented as was quickly after awakening. She tipped and fell landing into the bathroom wall striking her left shoulder. She then fell to the floor and struck her left hip. She had difficulty with use of the left shoulder and left hip. Unable to bear weight. Presented [facility]. X-rays were obtained revealed a displaced left humeral neck fracture and a comminuted, displaced left intertrochanteric femur fracture. Orthopedics was consulted She reportedly lives with her in an independent living situation/home. She typically ambulates without assistive device. Rarely uses a cane. History of COPD. Anxiety. Depression. [facility] Medical History Kidney stone ?N20.0 - Calculus of kidney (ICD-10) GERD (gastroesophageal reflux disease) ?K21.9 - Gastro-esophageal reflux disease without esophagitis (ICD-10) Depression ?F32.A - Depression, unspecified (ICD-10) Septic shock due to Escherichia coli ?A41.51 - Sepsis due to Escherichia coli [E. coli] (ICD-10) ?R65.21 - Severe sepsis with septic shock (ICD-10) Chronic anemia ?D64.9 - Anemia, unspecified (ICD-10) Hyponatremia ?E87.1 - Hypo-osmolality and hyponatremia (ICD-10) Acute renal failure due to urinary obstruction ?N17.9 - Acute kidney failure, unspecified (ICD-10) ?N13.9 - Obstructive and reflux uropathy, unspecified (ICD-10) Meniere disease ?H81.09 - Meniere's disease, unspecified ear (ICD-10) COPD (chronic obstructive pulmonary disease) ?J44.9 - Chronic obstructive pulmonary disease, unspecified (ICD-10) H/O traumatic brain injury ?Z87.820 - Personal history of traumatic brain injury (ICD-10) DIC (disseminated intravascular coagulation) ?D65 - Disseminated intravascular coagulation [defibrination syndrome] (ICD- 10) Surgical History H/O cystoscopy ?Z98.890 - Other specified postprocedural states (ICD-10) S/P ectopic ?Z87.59 - Personal history of other complications of , childbirth and the puer[place]ium (ICD-10) Kidney donor ?Z52.4 - Kidney donor (ICD-10) Social History Smoking Status: Former smoker What tobacco products do you use: cigarettes Smoking packs per day: 0.8 Smoking cigarettes per day: 16.0 Years smoked: 50 Smoking pack-years: 40.00 Smoking quit date/years: <= 15 years ago Do you use any of these nicotine containing products: None Second hand tobacco smoke exposure: No How often do you have a drink containing alcohol: never AUDIT-C Alcohol total score: 0 Non-prescribed substance use: denies use service: No Meds Home Medications and Allergies Home Medications ?Medication ?Instructions ?Recorded ?Confirmed ?Type clomipramine 50 mg capsule 50 mg PO BID 01/14/2501/14 History meclizine 25 mg tablet 25 mg PO DAILY PRN dizziness 01/14/25 01/14/25 History omeprazole 20 mg capsule,delayed 20 mg PO QAM 01/14/25 01/14/25 History release Allergies Allergy/AdvReac Type Severity Reaction Status Date / Time codeine Allergy Mild Vomiting Verified 01/14/25 04:57 hydrocodone Allergy Mild Anxiety Verified 01/14/25 04:57 Penicillins Allergy Unknown Verified 01/14/25 04:57 Ortho Exam Narrative Exam Narrative: She is alert and oriented x3. Lying supine in the emergency room [facility]. All she is cooperative with exam. Able to provide all the history and interactive during the exam. Left upper extremity shows neurologic intact in the radial, ulnar, median, and axillary nerve distribution to sensory light touch. Motor function is difficult the axillary nerve due to the fracture. It is intact in the other 3. 2+ radial pulse. No lacerations or abrasions otherwise noted. Tender palpation on the proximal humerus. Left lower extremity shows a neurologic intact in the superficial deep peroneal as well as plantar distribution to sensory light touch and motor function. Hip and knee range of motion is well strength deferred as her fracture limits this due to pain. 2+ DP and PT pulse. No lacerations abrasions the Diaz noted. No other significant right upper extremity or right lower extremity tenderness/pain on brief orthopedic frisk. Const Vital Signs, click to edit/add: Vital Signs - 24 hr 01/14/25 04:46 01/14/25 04:52 01/14/25 06:25 Temperature 97.6 F Pulse Rate 97 99 Pulse Rate [Pulse Oximeter] 96 Respiratory Rate 18 Blood Pressure 129/65 142/85 H Blood Pressure [Right Upper Arm] 129/65 Pulse Oximetry 94 91 Oxygen Delivery Method Room Air Oxygen Flow Rate 01/14/25 06:45 01/14/25 07:00 01/14/25 07:00 Temperature Pulse Rate 87 86 Pulse Rate [Pulse Oximeter] Respiratory Rate Blood Pressure Blood Pressure [Right Upper Arm] Pulse Oximetry 88 90 91 Oxygen Delivery Method OxyMask OxyMask OxyMask Oxygen Flow Rate 1 1 1 Results Labs Labs: Laboratory Results - last 48 hr 01/14/25 01/14/25 01/14/25 05:25 07:20 07:30 WBC 14.57 H RBC 3.61 L Hgb 9.0 L Hct 28.8 L MCV 80 MCH 25 L MCHC 31 L RDW Coeff of Dontae 21.1 H Plt Count 331 Neut % (Auto) 84.1 H Lymph % (Auto) 6.9 L [place] % (Auto) 4.7 Eos % (Auto) 1.0 Baso % (Auto) 0.8 Neut # (Auto) 12.30 H Lymph # (Auto) 1.00 [place] # (Auto) 0.70 Eos # (Auto) 0.10 Baso # (Auto) 0.10 Abs Immat Gran (auto) 0.40 H Imm/Tot Granulo (auto) 2.5 VBG pH 7.358 VBG pCO2 45 VBG pO2 40.9 VBG HCO3 25 Sodium 130 L Potassium 4.6 Chloride 100 Carbon Dioxide 23 Anion Gap 7 BUN 15 Creatinine 0.9 Estimated GFR 66 Glucose 116 H Lactate 1.2 Calcium 8.7 Urine Color Yellow Urine Appearance Clear Urine pH 5.5 Ur Specific [place] <= 1.005 Urine Protein Negative Urine Glucose (UA) Negative Urine Ketones Negative Urine Blood Negative Urine Nitrite Negative Urine Bilirubin Negative Urine Urobilinogen 0.2 Ur Leukocyte Esterase Trace A Urine RBC 0-2 Urine WBC 0-2 Ur Squamous Epith Cells None Urine Bacteria None Blood Type B Positive Antibody Screen NEGATIVE Diagnostic results Additional Comments: 2 radiographic views of the left humerus from [facility] dated 01/14/2025 were ordered by different provider and reviewed by me. This demonstrates a completely displaced humeral neck fracture. The head appears located within the glenoid, but the shaft is displaced 100% anteromedially. There appears to be a mild comminuted fracture fragment in the axillary pouch. Otherwise, no further fractures down the mid or distal portion of the humerus or appreciable around the elbow. AP pelvis and two radiographic views of the left femur from [facility] dated 01/14/2025 were ordered by different provider and reviewed by me. This shows a left intertrochanteric proximal femur fracture with comminution, varus angulation, shortening, and external rotation to the shaft. There is otherwise well-preserved joint space within the hip itself. No further fractures at the mid or distal portion of the femur noted. Arteriosclerosis of the popliteal artery noted. Assessment and Plan Assessment and plan (1) Displaced intertrochanteric fracture of left femur, initial encounter for closed fracture: Status: Acute Total time spent: Total time spent is greater than 50% in coordination of care (as documented) at patient's floor/unit and/or counseling patient: (2) Closed left humeral fracture: Status: Acute Total time spent: Total time spent is greater than 50% in coordination of care (as documented) at patient's floor/unit and/or counseling patient: (3) COPD (chronic obstructive pulmonary disease): Status: Acute Total time spent: Total time spent is greater than 50% in coordination of care (as documented) at patient's floor/unit and/or counseling patient: Plan I had a good discussion with the patient today. I helped her understand how these 2 fractures will impact her life. I do think both of them are worthy of surgery. The fact that she was previously a community ambulator and lives independently is noteworthy pain in my opinion, I do think fixing the left femur fracture today is prudent. We discussed the risks, benefits, and alternatives. This includes local risks (e.g. Infection, wound healing issues, [malunion, i nstability, fracture]) as well as systemic risks (e.g. VTE, [place], stroke). Regarding left shoulder, expressed that this will likely benefit from a reverse shoulder arthroplasty. Unfortunately, we do not have those implants in our facility today. We will not be able to get them today. That means at this time we will treat the left proximal humerus fracture) however, it will be worthy of a left reverse shoulder arthroplasty in the near future. Therefore, I also did discuss the risks and benefits as well as alternatives to that surgery. She states understanding. I expressed that this will be difficult for her because she previously had a normal acting shoulder until this fracture. Then she is going to have to undergo a shoulder replacement which will likely leave her with slightly less motion and strength, which will be disappointing to her as it is different than preop. She states understanding. I have communicated and coordinated care with the hospitalist team regarding the plan. We will anticipate doing the left hip fracture today. I anticipate the patient will remain as an inpatient tear in the hospital until we were able to fix her left proximal humerus pending implant availability. I have also coordinated care with the anesthesia team regarding anticipated surgery today for the left femur. Finally, as the patient is still in the emergency room, I have connected [id number] with emergency room physician to describe the anticipated plan.
--- NOTE | 2025-01-14 10:16 | PC.NURSE ---
Patient taken to OR. Report given to ROBERTO Ghosh. Notified patients , Bill, that patient was going into surgery. No questions at this time.
[2025-01-14] MEDS: CEFAZOLIN 1 GM inj IVP (10:38)
--- NOTE | 2025-01-14 11:03 | SUR.OPER ---
PATIENT QUESTIONS ANSWERED SATISFACTORILY PREOPERATIVELY. PATIENT BROUGHT TO OR #2 PER MED/SURG BED. Patient positioned supine on OR #2 bed. The perioperative team supported the right arm on an arm board. Final approval of positioning by surgeon
--- NOTE | 2025-01-14 11:30 | CRLHL7_ITS ---
For Patients: As a result of the Cures Act, medical imaging exams and procedure reports are released immediately into your electronic medical record. You may view this report before your referring provider. If you have questions, please contact your health care provider. Indication: Left proximal femoral fracture Technique: Four fluoroscopic images of the left femur. Fluoroscopic time 1 minute 27.2 seconds. IMPRESSION: Fluoroscopic guidance for open reduction internal fixation of left proximal femoral fracture. Dictated by Bjorn Garcia MD @ 01/14/2025 12:01:15 PM (Electronically Signed)
--- NOTE | 2025-01-14 11:33 | P.ANES_ITS ---
Anesthesia Charges Start Date/Time Anesthesia Start Date: 01/14/25 Anesthesia Start Time: 10:12 Stop Date/Time Anesthesia Stop Date: 01/14/25 Anesthesia Stop Time: 12:09 Summary Extremes of Age - Over 70 or under 1: MDA Coding CPT Codes CPT Codes: ANESTH SURGERY OF FEMUR - 95245 ([id number]) P3 - PATIENT W/SEVERE SYS DISEASE, QK - PIG BREEDER 2-4 CNCRNT ANES PROC, QX - YARN DYER SVC W/ MD MED DIRECTION Additional Codes: Summary - Extremes of Age - Over 70 or under 1: MDA ([id number])
--- NOTE | 2025-01-14 11:33 | P.NB_ITS ---
Nerve Block Nerve Block Time Seen by Provider: 10:25 Date Seen: 01/14/25 Type of block requested by surgeon for post-operative analgesia: BENJAMIN/LFCN Side: left Time out performed: Yes Verification of patient name: Yes Verification of date of : Yes Site marking: site marked Name of person performing procedure: Marcial Continuous monitoring Was continuous monitoring of O2 sat, B/P, clinical resource director, recorded every 15 minutes?: Yes Procedure Checklist: sterile prep, needles and gloves Ultrasound guided. Images saved: Yes Medications given in 5ml increments after negative aspiration: Ropivicaine %: 0.5 mL: 30 Needle gauge: 20 Precedex (mcg): 25 Patient tolerated procedure well: Yes Additional comments: Needle noted below psoas tendon needle noted adjacent to LFCN Block Charges Block Charge (with Pro Fee): Other Periph Nerve Block Use of Ultrasound Machine for Block: Yes- US Guidance/pain block
--- NOTE | 2025-01-14 11:33 | W.ANESCHARGE ---
Anesthesia Charges Start Date/Time Anesthesia Start Date: 01/14/25 Anesthesia Start Time: 10:12 Stop Date/Time Anesthesia Stop Date: 01/14/25 Anesthesia Stop Time: 12:09 Summary Extremes of Age - Over 70 or under 1: MDA Coding CPT Codes CPT Codes: ANESTH SURGERY OF FEMUR - 26174 ([id number]) P3 - PATIENT W/SEVERE SYS DISEASE, QK - WASTE WATER TREATMENT PLANT OPERATOR 2-4 CNCRNT ANES PROC, QX - GENERAL FORECASTER SVC W/ MD MED DIRECTION Additional Codes: Summary - Extremes of Age - Over 70 or under 1: MDA ([id number])
--- NOTE | 2025-01-14 11:38 | PM.ORPRC ---
Procedure Note Date of procedure: 01/14/25 Procedure: PREOPERATIVE DIAGNOSES: 1. Left femur intertrochanteric fracture, closed, acute POSTOPERATIVE DIAGNOSES: 1. Left femur intertrochanteric fracture, closed, acute NAME OF OPERATION: 1. Left femur intertrochanteric fracture fixation with intramedullary nail 2. 20543 - intraoperative fluoroscopy up to 1 hour. SURGEON: Jamie Smallwood MD HAT RENOVATOR: Tesfaye GUNDERSON. Of note, an assistant toddler teacher was critical for this case to aide in patient positioning, extremity positioning, tissue retraction, instrument manipulation, and closure. ANESTHESIA: Spinal EBL: 300 ml IMPLANTS: Synthes long TFN 11 x 400 mm with 85 mm lag screw and 1 distal 5.0 mm interlocking screws COMPLICATIONS: None evident INDICATIONS: The patient is a pleasant, 74-year-old female who unfortunately sustained a recent fall. They landed on their left hip and were unable to bear weight. She also sustained a left proximal humerus fracture with 100+ % displacement of the shaft relative to the head. The head remains reduced in the glenoid. However, we do not have implants for a reverse shoulder arthroplasty today. Thus, closed treatment for the left humerus at this moment. Eventual surgery. However, given the left femur fracture, surgery was indicated to improve the alignment and stabilize the fracture. FINDINGS: Comminuted intertrochanteric left femur fracture with displacement, shortening, and varus angulation. Very brittle bone. Even as we were inserting the distal lag screw, the cortex showed subtle bowing/buckling. PROCEDURE: Following a thorough discussion of risks, benefits, and alternatives, consent was obtained and the left hip was marked. After obtaining proper medical evaluation determining the patient was optimized prior to surgery, they were brought to the operating room and placed supine on the operating table. Induction of anesthesia undertaken. 1 g IV Ancef was administered within 1 hr of incision preoperatively. Proper time-out was performed identifying proper patient, site, and procedure. The operative extremity was prepped & draped in the appropriate sterile fashion using ChloraPrep after the patient was positioned on the [place] table with the head in neutral alignment all bone prominences well padded. C-arm fluoroscopic imaging was utilized to obtain AP and lateral views of the operative hip. This indeed confirm proper reduction of the proximal femur fracture. 10 blade skin incision was made proximal to the greater trochanteric tip. Sharp incision through skin and gluteal fascia allowed palpation of the greater trochanteric tip. A sharp awl was utilized and placed against the greater trochanteric tip. This was confirmed on C-arm and both in AP and lateral planes to be in appropriate starting position. Aiming down the canal. Once breaching the cortex, the ball-tip guidewire was passed the length of the femur. Once confirming via palpable scrape and visual C-Arm imagining that the guide wire with intraosseous, the depth gauge was used. The proper nail length was selected. The opening / proximal reamer was used followed by diaphyseal reamers up to 12.5 mm. The IMN was then opened and inserted and passed the length of the canal without difficulty. The triple trocar was then applied to the lateral femur, 10 blade incision through the skin and ITB band along the trocars allowed them to be advanced to the lateral cortex. This was confirmed fluoroscopically to be in appropriate position. The guide pin was then placed and confirmed on AP and lateral views with the goal of center center position. The length was measured as noted above and the reamer used followed by screw application. Reduction of the fracture was monitored during insertion. The proximal nail locking screw was tightened down, and left static as the fracture pattern was felt to be unstable. At this stage, C-arm confirmed proper screw/lag screw position. We then turned our attention to the distal interlocking screws. Perfect [place] technique was utilized, and the 10 blade skin incision allowed the drill bit to be placed, and confirmed on C-arm fluoroscopic imaging to be within the oblong hole. This was measured and the screw placed with good security of the screw. Again C-arm images were obtained to confirm position within the nail and the nail to be within the bone. At this stage, the wounds were thoroughly irrigated normal saline; closure was performed with #0 Vicryl for the deep gluteal fascia, and IT band. 2-0 Vicryl and 4-0 Monocryl was utilized for subcutaneous and subcuticular closure, respectively. The patient was awoken from anesthesia and transferred to the PACU in stable condition. PLAN: 1. Weight bear as tolerated operative lower extremity. 2. Encouraged ice. 3. Oxycodone for pain as needed. 4. Anticipate the need for [facility] facility transfer once medically stabilized 5. 23 hr perioperative antibiotics. 6. Mechanical and possibly chemoprophylaxis for DVT prophylaxis.
[2025-01-14] MEDS: LACTATED RINGERS 1000 ML 1,000 ML 100 ML IV (12:26)
--- NOTE | 2025-01-14 12:53 | P.ANES_ITS ---
Anesthesia Charges Start Date/Time Anesthesia Start Date: 01/14/25 Anesthesia Start Time: 10:12 Stop Date/Time Anesthesia Stop Date: 01/14/25 Anesthesia Stop Time: 12:09 Coding CPT Codes CPT Codes: ANESTH HIP JOINT SURGERY - 77797 ([id number]) P3 - PATIENT W/SEVERE SYS DISEASE, QK - DRILLING ENGINEER 2-4 CNCRNT ANES PROC, QX - OPTICAL LABORATORY MANAGER SVC W/ MD MED DIRECTION
--- NOTE | 2025-01-14 12:53 | W.ANESCHARGE ---
Anesthesia Charges Start Date/Time Anesthesia Start Date: 01/14/25 Anesthesia Start Time: 10:12 Stop Date/Time Anesthesia Stop Date: 01/14/25 Anesthesia Stop Time: 12:09 Coding CPT Codes CPT Codes: ANESTH HIP JOINT SURGERY - 23846 ([id number]) P3 - PATIENT W/SEVERE SYS DISEASE, QK - STACKER TENDER 2-4 CNCRNT ANES PROC, QX - PRINTED CIRCUIT BOARD PANELS DEVELOPER SVC W/ MD MED DIRECTION
[2025-01-14 13:22] LABS: Hemoglobin* 7.4 gm/dL (12.0-16.0)
--- NOTE | 2025-01-14 13:30 | PC.NURSE ---
Critical lab value: hbg 7.4. Reported to Dr. Robertson.
[2025-01-14 14:10] LABS: HCO3 VBG 24 mmol/L (21-28); PCO2 VBG 50 mmHG (40-50); PO2 VBG 34.9 mmHG (25-47); pH VBG 7.289 (7.32-7.43)
[2025-01-14] MEDS: 0.9 % SODIUM CHLORIDE 500 ML IV (14:54)
--- NOTE | 2025-01-14 15:36 | PC.NURSE ---
Patient requested that we call her daughter in law, Hodan Bello. Call was made. Per DIL, she is concerned about the overall health of patient and patients . She stated patient drinks a lot of beer and smokes a lot of weed and her nutrition is poor. She feels patient will need a rehab stay once medically discharged. She is available by phone whenever we need her. [phone]. All questions answered.
--- NOTE | 2025-01-14 16:05 | P.CCN_ITS ---
Subjective Subjective Time Seen by Provider: 14:40 Date Seen: 01/14/25 Interval history: 74-year-old female admitted to the hospital with a fall at home causing a displaced humerus fracture and intertrochanteric hip fracture. She was taken to the OR today by Dr. Smallwood where she had ORIF of her hip fracture. Postoperatively she reports generally doing well. She has no immediate concerns. Pain is adequately managed. She is noted to be hypoxic and nurses mancia ve given her oxygen for that purpose. She does not have dyspnea. She does have COPD as a diagnosis. She is not aware of any recent respiratory illness or breathing problems. She has not had any heart problems. No cough or fever. She is also noted to have low blood pressure after surgery. She received a bolus of fluid for this. She has chronic anemia and her hemoglobin dropped from 9.0 preop to 7.4 postop. In reviewing her records I see that her hemoglobin was 10.6 in May of 2024. Objective Objective Data Details: She is alert and appears in no distress. She is breathing comfortably. Breathing oxygen by face mask. Switched to nasal cannula without difficulty. O2 sats remain in the upper 90s. Breathing is unlabored. She has somewhat diminished breath sounds without wheezing rales or rhonchi. Cardiovascular: S1, S2, regular rate and rhythm. Abdomen: Bowel sounds active. Abdomen is soft without tenderness or mass. Extremities without edema. Prominent bruising and swelling around her left shoulder from her humeral fracture. Left hip examine with some swelling no marked bruising redness and no drainage seen on the dressings from the surgical sites. Assessment and Plan Assessment and plan (1) Displaced intertrochanteric fracture of left femur, initial encounter for closed fracture: Problem comment: ORIF by Dr. Smallwood 01/14/2025. No complications. Status: Acute (2) Closed left humeral fracture: Problem comment: - Ortho following, likely surgery in 2 days. Transfuse blood in preparation of that surgery. Status: Acute (3) Postoperative hypotension: Problem comment: Likely due to acute on chronic blood-loss anemia. Will transfuse 1 unit of blood and follow. She has responded fairly well to normal saline. Status: Acute (4) Postoperative hypoxia: Problem comment: Improving. I suspect this is from sedation from surgery, pain medication and underlying COPD. Appears to be doing well at this time. Status: Acute (5) Acute on chronic blood loss anemia: Problem comment: May 2024 had a hemoglobin of 10.6 with an MCV of 81. Peripheral smear obtained with pathology report as follows: Peripheral blood, morphology: Mild normocytic anemia, with insufficient reticulocytosis Absolute neutrophilia with rare hypersegmented forms Platelets with normal morphology and granulation Comment: Occasional elliptocytes and tear-drop red cells are observed. While tear drop cells can be associated with marrow fibrosis, myelophthisic processes, and/or hematopoietic neoplasms, they are also seen in other forms of anemia, vitamin B12 deficiency, and splenic abnormalities. Elliptocytes are commonly seen in iron deficiency anemia, however the patient's ferritin is within normal limits and a normocytic anemia is present making this less likely. Finally, rare hypersegmented neutrophils are seen. Hypersegmentation is more often seen in megaloblastic anemia, however, they may also be seen in association with medications, nutritional disorders, and myelodysplastic syndrome. Clinical correlation is advised. Status: Acute (6) Hyponatremia: Problem comment: - Na of 130, likely SIADH from Clomipramine - will decrease back to 50mg once/day and follow Na Status: Acute (7) COPD (chronic obstructive pulmonary disease): Problem comment: - not on supplemental oxygen as an outpatient, no evidence of acute exacerbation - RT referral, will ask pharmacy to confirm inhalers (Breo vs Advair, Spiriva) - requiring low dose supplemental oxygen (likely worsened by opiates) Status: Acute (8) Alcohol use disorder: Problem comment: Monitor with CIWA Status: Acute (9) Cannabis use disorder: Status: Acute (10) Malnutrition: Problem comment: Poor nutrition prior to injuries according to family. Improve nutrition during this hospital stay Status: Acute (11) Sedentary lifestyle: Problem comment: Very sedentary according to family. Likely will have a slow and prolonged rehab from current injuries Status: Acute Plan Continue in hospital for close evaluation and management of her injuries and chronic medical problems. Transfuse 1 unit of blood. Wean oxygen as tolerated. Monitor CIWA and sodium. Total Time Spent Total Time Spent: Total time spent today is 45 minutes in reviewing outside records and coordination of care and discussing with patient and ongoing evaluation management of these problems
--- NOTE | 2025-01-14 16:38 | PC.SOCIAL ---
Discharge planning- Met with patient bedside to begin conversations on discharge planning. Patient lives at home with her . Patient's is able to provide minimal physical assistance. Patient does not have any in home service providers or [facility]'s at this time. Patient had surgery today and will have a second surgery later this week. Patient will likely need SNF placement after discharge. Discussed with patient and she is agreeable to SNF placement. Provided patient with a list of area SNF's to review with family. Patient will review and determine what SNF's she would like referrals sent to. Patient discloses daily alcohol use. Patient reports that she drinks 2-3 cans of [place] daily. Patient discloses that she also smokes marijuana daily. Patient states that she accesses Marijuana from a dispensary in [place], [place]. Discussed possible CD treatment options (outpatient) and patient declines resources at this time. Informed patient that social work will continue to follow up and make appropriate discharge plans based on recommendations, patient was agreeable.
[2025-01-14] MEDS: OXYCODONE 5 MG TABLET PO (17:07)
[2025-01-14] MEDS: CEFAZOLIN 2 GM in 0.9 % SODIUM CHLORIDE Mini-bag 100 ML IVPB (17:40)
[2025-01-14] MEDS: PHENobarbitaL 32.4 MG TABLET 64.8 MG PO (19:55)
[2025-01-14 20:14] LABS: Albumin* 3.8 g/dL (3.3-5.0)
[2025-01-14 20:16] LABS: Alanine Aminotransferase* 21 U/L (4-35); Aspartate Amino Transferase* 46 U/L (12-35); Total Protein* 5.9 g/dL (6.0-8.3)
[2025-01-14 20:17] LABS: Alkaline Phosphatase* 81 U/L (40-150); Bilirubin Direct* 0.2 mg/dL (0.0-0.5); Bilirubin Total* 0.7 mg/dL (0.1-1.5); Magnesium* 1.9 mg/dL (1.5-2.6)
[2025-01-14 20:35] LABS: Troponin I* < 0.01 ng/mL (0.01-0.04)
[2025-01-14 20:50] LABS: Thyroid Stimulating Hormone* 0.551 uIU/mL (0.270-4.20)
--- NOTE | 2025-01-14 22:51 | PC.NURSE ---
Patient using 3L of oxygen after surgery to keep oxygen >88%. Otherwise vitally stable. Patient received 1 unit of blood for low hemoglobin after surgery as well. 1 hour post transfusion end patient started getting diaphoretic and oxygen saturation decreased. Patient kept taking big breaths and refused chest pain, SOB, pain, anxiety. Nurse noticed hand tremors on patient and upon asking, patient said she has had them for 3 months. MD notified and requested to assess patient. Ordered phenobarbital after assessing to help with potential alcohol withdrawal. Surgical site/incisions in left leg/hip all CD&I. Patient refused to ambulate or get out of bed during the shift due to pain of left shoulder. Ordered dinner, but did not eat it. Drinking fluids and having output from pham. Nursing to continue to monitor for withdrawal symptoms, pain and oxygen saturation.?
[2025-01-15] VITALS (18 sets, daily range): BP systolic 116–143; BP diastolic 44–89; PULSE 81–107; RESP 16–20; TEMP 36–37.3; O2SAT 91–95
[2025-01-15] MEDS: CEFAZOLIN 2 GM in 0.9 % SODIUM CHLORIDE Mini-bag 100 ML IVPB ×2 (00:03→07:56)
[2025-01-15] MEDS: SODIUM CHLORIDE 0.9 % (FLUSH) 10 ML SYRINGE 5 ML IVF ×3 (00:03→20:43)
[2025-01-15] MEDS: 0.9 % SODIUM CHLORIDE 250 ml IV (00:07)
[2025-01-15] MEDS: HYDROmorphone 0.5 mg/0.5 ml inj IVP ×4 (00:39→12:39)
[2025-01-15] MEDS: OXYCODONE 5 MG TABLET PO ×3 (02:14→20:42)
[2025-01-15] MEDS: ACETAMINOPHEN 325 MG TABLET 975 MG PO ×4 (03:34→22:04)
--- NOTE | 2025-01-15 05:22 | PC.NURSE ---
Shift note: Patient has been in bed throughout the night. She refused ambulating. She continue to rate pain 10/10, says 100 anytime she asked to rate her pain level. Pain medications given. Zamudio draining well and intact. Dressing intact, clean and dry. Vitally stable. Pretibial and radial pulses to both left hand and leg intact (about 2+). SCD applied.
[2025-01-15] MEDS: OMEPRAZOLE 20 MG CAPSULE DR PO (06:33)
[2025-01-15 07:03] LABS: Hematocrit 23.7 % (33.0-51.0); Mean Corpuscular HGB Conc 32 gm/dL (32-36); Mean Corpuscular Hemoglobin 26 pg (26-34); Mean Corpuscular Volume 81 fL (80-100); Red Blood Count 2.93 m/uL (4.00-5.20); White Blood Count* 7.08 K/uL (4.50-11.00)
[2025-01-15 07:19] LABS: Chloride* 99 mmol/L (96-114); Potassium* 4.5 mmol/L (3.6-5.1); Sodium* 128 mmol/L (135-149)
[2025-01-15 07:22] LABS: Anion Gap 4 mEq/L (7-15); Blood Urea Nitrogen* 18 mg/dL (7-30); Calcium* 8.1 mg/dL (8.4-10.6); Carbon Dioxide* 25 mmol/L (20-32); Creatinine* 0.8 mg/dL (0.5-1.5); Est. Creatinine Clearance* 46.54; Estimated Glomerular Filt Rate 76 ml/min; Glucose* 108 mg/dL (60-115); INR 1.21 (0.91-1.10); Prothrombin Time 16.2 Seconds
[2025-01-15 07:37] LABS: Hemoglobin* 7.6 gm/dL (12.0-16.0); Slide Review Reflex Yes
[2025-01-15 07:38] LABS: Platelet Count* 300 K/uL (140-440)
[2025-01-15 07:40] LABS: Slide Review Acceptable Review (Acceptable)
[2025-01-15] MEDS: THIAMINE 100 MG TABLET PO (07:56)
[2025-01-15] MEDS: FOLIC ACID 1 MG TABLET PO (08:47)
[2025-01-15] MEDS: MULTIVITAMIN/MINERALS 1 TABLET 1 TAB PO (08:47)
[2025-01-15] MEDS: RIVAROXABAN 10 MG TABLET PO (08:47)
--- NOTE | 2025-01-15 12:34 | PM.IMPN1 ---
Assessment and Plan Assessment and plan (1) Displaced intertrochanteric fracture of left femur, initial encounter for closed fracture: Problem comment: ORIF by Dr. Smallwood 01/14/2025. No complications. PT/OT NOEMYB Keny director of tax services for placement needs Status: Acute (2) Closed left humeral fracture: Problem comment: Ortho following - to OR 01/16/25 Transfused blood in preparation of that surgery - another unit ordered on 01/15 for hgb 7.6. Received postoperative dose Xarelto on 01/15, surgery aware NPO after midnight for OR 01/16 SCDs for VTE PPX Status: Acute (3) Postoperative hypotension: Problem comment: RESOLVED Likely due to acute on chronic blood-loss anemia. Transfused 1 unit of blood. She has responded fairly well to normal saline. Monitor following second surgery Status: Acute (4) Postoperative hypoxia: Problem comment: Improving. I suspect this is from sedation from surgery, pain medication and underlying COPD. Appears to be doing well at this time. Status: Acute (5) Acute on chronic blood loss anemia: Problem comment: May 2024 had a hemoglobin of 10.6 with an MCV of 81. Peripheral smear obtained with pathology report as follows: Peripheral blood, morphology: Mild normocytic anemia, with insufficient reticulocytosis Absolute neutrophilia with rare hypersegmented forms Platelets with normal morphology and granulation Comment: Occasional elliptocytes and tear-drop red cells are observed. While tear drop cells can be associated with marrow fibrosis, myelophthisic processes, and/or hematopoietic neoplasms, they are also seen in other forms of anemia, vitamin B12 deficiency, and splenic abnormalities. Elliptocytes are commonly seen in iron deficiency anemia, however the patient's ferritin is within normal limits and a normocytic anemia is present making this less likely. Finally, rare hypersegmented neutrophils are seen. Hypersegmentation is more often seen in megaloblastic anemia, however, they may also be seen in association with medications, nutritional disorders, and myelodysplastic syndrome. Clinical correlation is advised. 01/15 hgb 7.6 following 1 unit PRBC and hg 7.4 yesterday. Will receive another unit PRBC today. Holding Xarelto Status: Acute (6) Hyponatremia: Problem comment: - Na of 130, likely SIADH from Clomipramine, chronic alcohol use - will decrease back to 50mg once/day and follow Na 01/15 Na trending down, 128. Sodium tabs tid started Status: Acute (7) COPD (chronic obstructive pulmonary disease): Problem comment: - not on supplemental oxygen as an outpatient, no evidence of acute exacerbation - RT referral, will ask pharmacy to confirm inhalers (Breo vs Advair, Spiriva) - requiring low dose supplemental oxygen (likely worsened by opiates), continue to wean able following surgeries Status: Acute (8) Alcohol use disorder: Problem comment: Monitor with FANWA Received dose of phenobarbital 01/14 director of tax services aware for placement needs Status: Acute (9) Cannabis use disorder: Problem comment: Chronic Status: Acute (10) Malnutrition: Problem comment: Poor nutrition prior to injuries according to family. Improve nutrition during this hospital stay Status: Acute (11) Sedentary lifestyle: Problem comment: Very sedentary according to family. Likely will have a slow and prolonged rehab from current injuries Status: Acute Total Time Spent Total Time Spent: Today I spent 55 minutes seeing the patient, reviewing [facility] and EPIC notes/diagnostics, discussing the care plan with our care time that includes social work, PT/OT, pharmacy, RT, prison and documenting my impressions and plan in the medical record. Subjective Date Seen: 01/15/25 Interval history: Patient is seen sitting up in a chair this morning. Complains of left upper extremity pain with any sort of movement. Left lower extremity pain manageable. Denies headache or dizziness. No chest pain. Denies feeling short of breath. Is not dyspneic. Remains on supplemental oxygen after being noted to be hypoxic postoperatively yesterday. No nausea or vomiting, tolerating orals. Awaiting surgical repair left humeral fracture, planned for tomorrow 01/16. Exam Narrative: Exam Narrative: PHYSICAL EXAM General: Pleasant, conversant, NAD HEENT: Normocephalic, atraumatic, sclera white, EOMI, oral mucosa moist Cardiovascular: RRR, S1S2. Mild edema LLE Pulmonary: CTA bilaterally without rhonchi, rales, expiratory wheezes. No dyspnea on NC. No dyspnea Neurological: Alert, answering questions appropriately but seems mildly confused, no focal findings Extremities: LLE postoperative dressing in place, dry, LUE in sling. Neurovascularly intact Skin: Warm, dry. Const: Vital Signs, click to edit/add: Vital Signs - 24 hr 01/14/25 12:35 01/14/25 12:40 01/14/25 12:45 Temperature Pulse Rate 86 89 85 Pulse Rate [Left D orsalis Pedis] Pulse Rate [Pulse Oximeter] Respiratory Rate 16 16 18 Blood Pressure 109/45 L 109/56 L 112/45 L Blood Pressure [Ri ght Calf] Blood Pressure [Ri ght Radial Artery] Pulse Oximetry 91 92 92 Oxygen Delivery Me thod Oxygen Flow Rate 01/14/25 12:50 01/14/25 12:55 01/14/25 13:05 Temperature 98.4 F 96.5 F L Pulse Rate 88 86 100 Pulse Rate [Left D orsalis Pedis] Pulse Rate [Pulse Oximeter] Respiratory Rate 16 17 16 Blood Pressure 105/41 L 112/43 L 101/41 L Blood Pressure [Ri ght Calf] Blood Pressure [Ri ght Radial Artery] Pulse Oximetry 94 94 92 Oxygen Delivery Me thod OxyMask Oxygen Flow Rate 3 01/14/25 13:15 01/14/25 13:16 01/14/25 13:30 Temperature 97.5 F L Pulse Rate 122 H 87 86 Pulse Rate [Left D orsalis Pedis] Pulse Rate [Pulse Oximeter] Respiratory Rate 16 16 Blood Pressure 98/61 110/54 L Blood Pressure [Ri ght Calf] Blood Pressure [Ri ght Radial Artery] Pulse Oximetry 91 88 Oxygen Delivery Me thod OxyMask OxyMask Oxygen Flow Rate 3 3 01/14/25 13:45 01/14/25 14:00 01/14/25 14:00 Temperature 97.7 F 96.5 F L 97.7 F Pulse Rate 90 91 Pulse Rate [Left D orsalis Pedis] 100 Pulse Rate [Pulse Oximeter] 100 Respiratory Rate 16 16 16 Blood Pressure 105/66 118/59 L Blood Pressure [Ri ght Calf] Blood Pressure [Ri ght Radial Artery] 101/41 L Pulse Oximetry 91 93 92 Oxygen Delivery Me thod OxyMask Nasal Cannula OxyMask Oxygen Flow Rate 4 3 3 01/14/25 14:30 01/14/25 15:00 01/14/25 15:00 Temperature 97.7 F Pulse Rate 90 86 Pulse Rate [Left D orsalis Pedis] 86 Pulse Rate [Pulse Oximeter] 86 Respiratory Rate 16 16 16 Blood Pressure 118/54 L 107/45 L Blood Pressure [Ri ght Calf] Blood Pressure [Ri ght Radial Artery] 101/41 L Pulse Oximetry 92 96 96 Oxygen Delivery Me thod OxyMask Nasal Cannula Nasal Cannula Oxygen Flow Rate 3 3 3 01/14/25 15:00 01/14/25 15:00 01/14/25 15:35 Temperature 97.7 F Pulse Rate 87 Pulse Rate [Left D orsalis Pedis] Pulse Rate [Pulse Oximeter] Respiratory Rate 18 18 18 Blood Pressure 110/48 L Blood Pressure [Ri ght Calf] Blood Pressure [Ri ght Radial Artery] Pulse Oximetry 94 94 Oxygen Delivery Me thod Nasal Cannula Nasal Cannula Oxygen Flow Rate 3 3 01/14/25 15:50 01/14/25 16:00 01/14/25 16:00 Temperature 96.4 F L 96.6 F L 96.4 F L Pulse Rate 90 90 Pulse Rate [Left D orsalis Pedis] Pulse Rate [Pulse Oximeter] 86 Respiratory Rate 18 18 18 Blood Pressure 105/51 L 105/51 L Blood Pressure [Ri ght Calf] Blood Pressure [Ri ght Radial Artery] 104/50 L Pulse Oximetry 92 92 92 Oxygen Delivery Me thod Nasal Cannula Nasal Cannula Nasal Cannula Oxygen Flow Rate 3 3 3 01/14/25 16:25 01/14/25 16:56 01/14/25 17:00 Temperature 97.6 F 97.9 F 97.9 F Pulse Rate 86 85 85 Pulse Rate [Left D orsalis Pedis] Pulse Rate [Pulse Oximeter] Respiratory Rate 18 18 20 Blood Pressure 99/61 109/54 L 109/54 L Blood Pressure [Ri ght Calf] Blood Pressure [Ri ght Radial Artery] Pulse Oximetry 92 89 89 Oxygen Delivery Me thod Nasal Cannula Nasal Cannula Nasal Cannula Oxygen Flow Rate 3 3 3 01/14/25 17:00 01/14/25 17:26 01/14/25 17:56 Temperature 97.9 F 98.1 F Pulse Rate 85 84 Pulse Rate [Left D orsalis Pedis] Pulse Rate [Pulse Oximeter] Respiratory Rate 18 16 Blood Pressure 109/54 L 123/62 114/58 L Blood Pressure [Ri ght Calf] Blood Pressure [Ri ght Radial Artery] Pulse Oximetry 89 93 Oxygen Delivery Me thod Nasal Cannula Oxygen Flow Rate 2 01/14/25 18:00 01/14/25 18:41 01/14/25 19:00 Temperature 97.0 F L 97.0 F L 98.4 F Pulse Rate 92 92 94 Pulse Rate [Left D orsalis Pedis] Pulse Rate [Pulse Oximeter] Respiratory Rate 16 16 20 Blood Pressure 128/67 128/67 140/59 H Blood Pressure [Ri ght Calf] Blood Pressure [Ri ght Radial Artery] Pulse Oximetry 93 93 89 Oxygen Delivery Me thod Nasal Cannula Nasal Cannula OxyMask Oxygen Flow Rate 2 2 3 01/14/25 19:00 01/14/25 19:10 01/14/25 23:00 Temperature 98.4 F 98.4 F Pulse Rate 94 Pulse Rate [Left D orsalis Pedis] Pulse Rate [Pulse Oximeter] 94 94 Respiratory Rate 18 18 18 Blood Pressure 140/59 H Blood Pressure [Ri ght Calf] 140/59 H Blood Pressure [Ri ght Radial Artery] Pulse Oximetry 90 90 Oxygen Delivery Me thod OxyMask OxyMask Oxygen Flow Rate 3 3 01/14/25 23:00 01/14/25 23:00 01/14/25 23:00 Temperature 98.4 F Pulse Rate 85 Pulse Rate [Left D orsalis Pedis] Pulse Rate [Pulse Oximeter] 94 Respiratory Rate 18 18 Blood Pressure Blood Pressure [Ri ght Calf] 121/53 L Blood Pressure [Ri ght Radial Artery] Pulse Oximetry 92 92 Oxygen Delivery Me thod OxyMask OxyMask Oxygen Flow Rate 3 3 01/15/25 02:18 01/15/25 07:00 01/15/25 07:30 Temperature 96.9 F L 96.8 F L Pulse Rate Pulse Rate [Left D orsalis Pedis] 87 Pulse Rate [Pulse Oximeter] 91 Respiratory Rate 18 18 18 Blood Pressure Blood Pressure [Ri ght Calf] 118/84 135/58 L Blood Pressure [Ri ght Radial Artery] Pulse Oximetry 94 94 94 Oxygen Delivery Me thod Nasal Cannula Nasal Cannula Nasal Cannula Oxygen Flow Rate 3 2 2 01/15/25 07:30 01/15/25 07:30 01/15/25 11:00 Temperature 96.8 F L 98.8 F Pulse Rate Pulse Rate [Left D orsalis Pedis] Pulse Rate [Pulse Oximeter] 91 91 95 Respiratory Rate 18 18 18 Blood Pressure Blood Pressure [Ri ght Calf] 135/58 L 128/45 L Blood Pressure [Ri ght Radial Artery] Pulse Oximetry 94 95 Oxygen Delivery Me thod Nasal Cannula Nasal Cannula Oxygen Flow Rate 2 2 01/15/25 11:30 01/15/25 11:41 01/15/25 12:05 Temperature 98.8 F 98.8 F 98.4 F Pulse Rate 92 91 Pulse Rate [Left D orsalis Pedis] Pulse Rate [Pulse Oximeter] 95 Respiratory Rate 18 18 18 Blood Pressure 126/44 L 130/73 Blood Pressure [Ri ght Calf] 128/58 L Blood Pressure [Ri ght Radial Artery] Pulse Oximetry 95 92 93 Oxygen Delivery Me thod Nasal Cannula Nasal Cannula Nasal Cannula Oxygen Flow Rate 2 2 2 01/15/25 12:06 Temperature 98.4 F Pulse Rate 91 Pulse Rate [Left D orsalis Pedis] Pulse Rate [Pulse Oximeter] Respiratory Rate 18 Blood Pressure 130/73 Blood Pressure [Ri ght Calf] Blood Pressure [Ri ght Radial Artery] Pulse Oximetry 93 Oxygen Delivery Me thod Nasal Cannula Oxygen Flow Rate 2 Labs Labs: Laboratory Results - last 24 hr 01/14/25 01/14/25 01/14/25 05:25 07:30 11:20 WBC RBC Hgb 7.4 L* Hct MCV MCH MCHC Plt Count Diff Slide Review INR VBG pH VBG pCO2 VBG pO2 VBG HCO3 Sodium Potassium Chloride Carbon Dioxide Anion Gap BUN Creatinine Estimated Creat Clear Estimated GFR Glucose Calcium Magnesium 1.9 Total Bilirubin 0.7 Direct Bilirubin 0.2 AST 46 H ALT 21 Alkaline Phosphatase 81 Troponin I < 0.01 Total Protein 5.9 L Albumin 3.8 TSH 0.551 Lab Acknowledgement Blood Type B Positive Antibody Screen NEGATIVE Crossmatch ([facility]) See Detail 01/14/25 01/14/25 01/15/25 13:58 19:50 06:52 WBC 7.08 RBC 2.93 L Hgb 7.6 L* Hct 23.7 L MCV 81 MCH 26 MCHC 32 Plt Count 300 Diff Slide Review Acceptable Review INR 1.21 H VBG pH 7.289 L VBG pCO2 50 VBG pO2 34.9 VBG HCO3 24 Sodium 128 L Potassium 4.5 Chloride 99 Carbon Dioxide 25 Anion Gap 4 L BUN 18 Creatinine 0.8 Estimated Creat Clear 46.54 Estimated GFR 76 Glucose 108 Calcium 8.1 L Magnesium Total Bilirubin Direct Bilirubin AST ALT Alkaline Phosphatase Troponin I Total Protein Albumin TSH Lab Acknowledgement Test Added Blood Type Antibody Screen Crossmatch ([facility])
[2025-01-15] MEDS: SODIUM CHLORIDE 1 GM TABLET PO ×2 (12:39→17:35)
[2025-01-15 15:42] LABS: Hemoglobin* 9.6 gm/dL (12.0-16.0)
[2025-01-15] MEDS: propofoL 1,000 MG/100 ML ML 30.24 MG IVPB (17:45)
--- NOTE | 2025-01-15 19:23 | PC.NURSE ---
End of Shift: Patient pleasant and cooperative, A&O but forgetful and needs reminders. VSS, afebrile. SpO2 maintained above 90% on 2L NC. Tolerating regular diet, refused lunch, pt states ?I only eat 1 meal a day,? educated patient on importance of nutrition, pt still declined. Pt has reported pain on her hip and arm both 10/10 this shift, or ?100/10?, gave PRN medication and scheduled Tylenol. She has been up in the chair this shift. Dressing to left hip, C/D/I, CMS intact. Left arm has been in sling throughout the shift. Blood transfusion complete, no reactions noted. Ceiling lift for transfers, does not tolerate well. ?
[2025-01-16] VITALS (21 sets, daily range): BP systolic 91–188; BP diastolic 54–91; PULSE 79–115; RESP 12–32; TEMP 35.9–37.1; O2SAT 90–97
[2025-01-16] MEDS: ACETAMINOPHEN 325 MG TABLET 975 MG PO ×2 (03:38→12:05)
--- NOTE | 2025-01-16 06:39 | PC.NURSE ---
Pt pleasant, alert and oriented. Pt needs occasional reinforcement. When asked to rate pain pt stated ?a ton,? staff reminded pt of scale though were unable to redirect. Prn oxy given and pt stated it improved when questioned. Pt NPO at midnight. Zamudio patent and draining. Dressing C/D/I. Ice pack to op site. Arm in immobilizer throughout shift. Pt 2a ceiling lift. Pt in bed, appears to be resting, call light within reach.?
[2025-01-16] MEDS: OMEPRAZOLE 20 MG CAPSULE DR PO (06:44)
--- NOTE | 2025-01-16 07:22 | CRLHL7_ITS ---
For Patients: As a result of the Century Cures Act, medical imaging exams and procedure reports are released immediately into your electronic medical record. You may view this report before your referring provider. If you have questions, please contact your health care provider. INDICATION: Fall. Fracture. Surgical planning. COMPARISON: Plain films 04 January 2025. TECHNIQUE: Multidetector noncontrast imaging left shoulder and proximal humerus with axial, coronal and sagittal reformats. FINDINGS: At least 3 cm anteromedial and cephalad displacement of the distal humerus relative to the humeral head. Medial cephalad humeral shaft abuts the undersurface of the coracoid. Humeral head is posterior superiorly prominently subluxed from the glenoid fossa. Some nondisplaced comminution of the fracture through the greater tuberosity. No underlying bone lesion. Neutral glenoid version and normal bone depth and bone quality. Edematous contusion mildly expands the triceps. Complex effusion likely hemarthrosis glenohumeral joint and subacromial/subdeltoid bursa. Rotator cuff muscle bulk and attenuation much normal. Some motion degrades assessment of ribs and scapular blade. No significant lung parenchymal finding. IMPRESSION: Comminuted displaced proximal humeral neck fracture. Prominent anterior medial and cephalad displacement of the distal shaft. Posterior cephalad subluxation of the articular humeral head. Please note that all CT scans at this facility use dose modulation, iterative reconstruction, and/or weight-based dosing when appropriate to reduce radiation dose to as low as reasonably achievable. Dictated by Hernesto Mancuso MD @ 01/16/2025 9:26:21 AM (Electronically Signed)
[2025-01-16] MEDS: LORazepam 2 MG/ML inj IVP (07:52)
[2025-01-16 09:33] LABS: HCO3 VBG 25 mmol/L (21-28); PCO2 VBG 39 mmHG (40-50); PO2 VBG < 30.1 mmHG (25-47); pH VBG 7.428 (7.32-7.43)
[2025-01-16 09:41] LABS: Basophils Absolute Auto 0.12 K/uL (0.00-0.30); Basophils Percent Auto 1.2 % (0.0-3.0); Eosinophils Absolute Auto 0.23 K/uL (0.00-0.50); Eosinophils Percent Auto 2.3 % (0.0-7.0); Hemoglobin* 9.9 gm/dL (12.0-16.0); Immature Granulocytes Abs Auto 0.05 K/uL (0.00-0.30); Immature Granulocytes Pct Auto 0.5 %; Lymphocytes Percent Auto 8.7 % (20-44); Mean Corpuscular HGB Conc 32 gm/dL (32-36); Mean Corpuscular Hemoglobin 26 pg (26-34); Mean Corpuscular Volume 82 fL (80-100); Monocytes Percent Auto 6.5 % (0.0-11.0); Neutrophils Percent Auto 80.8 % (42.0-72.0); Platelet Count* 177 K/uL (140-440)
[2025-01-16 09:50] LABS: Slide Review Reflex No
[2025-01-16] MEDS: THIAMINE 250 MG in 0.9 % SODIUM CHLORIDE 100 ml 100 ML 102.5 MG IVPB (09:51)
[2025-01-16] MEDS: SODIUM CHLORIDE 0.9 % (FLUSH) 10 ML SYRINGE 5 ML IVF (10:08)
[2025-01-16 10:17] LABS: Chloride* 99 mmol/L (96-114); Potassium* 3.9 mmol/L (3.6-5.1); Sodium* 129 mmol/L (135-149)
[2025-01-16 10:20] LABS: Anion Gap 6 mEq/L (7-15); Blood Urea Nitrogen* 15 mg/dL (7-30); Calcium* 8.5 mg/dL (8.4-10.6); Carbon Dioxide* 24 mmol/L (20-32); Creatinine* 0.7 mg/dL (0.5-1.5); Est. Creatinine Clearance* 46.54; Estimated Glomerular Filt Rate 90 ml/min; Glucose* 97 mg/dL (60-115)
--- NOTE | 2025-01-16 11:17 | P.IMPN_ITS ---
Assessment and Plan Assessment and plan (1) Displaced intertrochanteric fracture of left femur, initial encounter for closed fracture: Problem comment: ORIF by Dr. Smallwood 01/14/2025. No complications. PT/OT - abductor pillow ordered per PT client services associate for placement needs Status: Acute (2) Closed left humeral fracture: Problem comment: Ortho following - so moved to 01/18/25 Transfused blood in preparation of that surgery - another unit ordered on 01/15 for hgb 7.6 -> 9.9. Received postoperative dose Xarelto on 01/15, surgery aware NWB LUE SCDs for VTE PPX - Xarelto dose given 01/16 as surgery delayed - hold for 01/17 Status: Acute (3) Acute on chronic blood loss anemia: Problem comment: May 2024 had a hemoglobin of 10.6 with an MCV of 81. Peripheral smear obtained with pathology report as follows: Peripheral blood, morphology: Mild normocytic anemia, with insufficient reticulocytosis Absolute neutrophilia with rare hypersegmented forms Platelets with normal morphology and granulation Comment: Occasional elliptocytes and tear-drop red cells are observed. While tear drop cells can be associated with marrow fibrosis, myelophthisic processes, and/or hematopoietic neoplasms, they are also seen in other forms of anemia, vitamin B12 deficiency, and splenic abnormalities. Elliptocytes are commonly seen in iron deficiency anemia, however the patient's ferritin is within normal limits and a normocytic anemia is present making this less likely. Finally, rare hypersegmented neutrophils are seen. Hypersegmentation is more often seen in megaloblastic anemia, however, they may also be seen in association with medications, nutritional disorders, and myelodysplastic syndrome. Clinical correlation is advised. 01/15 hgb 7.6 following 1 unit PRBC and hg 7.4 yesterday. Will receive another unit PRBC today. Holding Xarelto 01/16 hgb improved to 9.9. Okay for Xarelto dose today, holding tomorrow prior to surgery. Continue to monitor with daily labs Status: Acute (4) Wernicke encephalopathy: Problem comment: In setting of chronic alcohol use disorder, exacerbated by recent surgery (ORIF) anesthesia, narcotics Continue IVF. Regular diet if able and safe to do so IV thiamine CIWA - diazepam in setting of lorazepam shortage, phenobarbital if needed Checking magnesium and phosphorus levels 2nd surgery has been delayed from 01/16-01/18, awaiting improvement Minimize narcotics as able, scheduled Tylenol, lidocaine patch, ice/heat CBC, BMP, VBG q.a.m. Status: Acute (5) Alcohol use disorder: Problem comment: Monitor with CIWA Received dose of phenobarbital 01/14, continue prn client services associate aware for placement needs Status: Acute (6) Postoperative hypoxia: Problem comment: Improving, now 2 L versus 3 L. Suspect this is from sedation from surgery, pain medication and underlying COPD Likely unable to appropriately use incentive spirometer given encephalopathy Minimize narcotics as able. Receiving benzodiazepine for withdrawals Continues to be risk for 2nd surgery Status: Acute (7) COPD (chronic obstructive pulmonary disease): Problem comment: - not on supplemental oxygen as an outpatient - RT referral, will ask pharmacy to confirm inhalers (Breo vs Advair, Spiriva) - requiring supplemental oxygen (likely worsened by opiates) perioperatively - Likely unable to appropriately use incentive spirometer given encephalopathy Status: Acute (8) Cannabis use disorder: Problem comment: Chronic Status: Acute (9) Malnutrition: Problem comment: Poor nutrition prior to injuries according to family. Improve nutrition during this hospital stay Status: Acute (10) Sedentary lifestyle: Problem comment: Very sedentary according to family. Likely will have a slow and prolonged rehab from current injuries Status: Acute (11) Hyponatremia: Problem comment: - Na of 130, likely SIADH from Clomipramine, chronic alcohol use - will decrease back to 50mg once/day and follow Na 01/15 Na trending down, 128. Sodium tabs tid started 01/16 Na 129, continue to monitor Status: Acute (12) Postoperative hypotension: Problem comment: RESOLVED Likely due to acute on chronic blood-loss anemia. Transfused 1 unit of blood. She has responded fairly well to normal saline. Continue to monitor perioperatively Status: Acute Plan - OR delayed to 01/18/2025 Total Time Spent Total Time Spent: Today I spent 55 minutes seeing the patient, reviewing [facility]panse and EPIC notes/diagnostics, discussing the care plan with our care time that includes social work, PT/OT, pharmacy, RT, intermediate and documenting my impressions and plan in the medical record. Subjective Date Seen: 01/16/25 Interval history: Patient is seen lying in bed this morning. Seems to be more confused today than yesterday. Oriented to self. Remains very conversant otherwise. Attempting to get a hold of her via phone. Has a mild global headache. No dizziness. Denies chest pain or shortness of breath. Denies nausea or vomiting. Remains afebrile. POD#2 left femur ORIF. Has struggled postoperatively with confusion, hypoxia. Blood pressures have improved. Initial plan for left shoulder repair was for today however orthopedic team has made the decision to delay this until Tuesday given current state of health. Exam Narrative: Exam Narrative: PHYSICAL EXAM General: Disheveled this morning otherwise pleasant and NAD Cardiovascular: RRR, S1S2. Mild edema LLE Pulmonary: CTA bilaterally without rhonchi, rales, expiratory wheezes. No dyspnea on NC Neurological: Alert, more confused this morning, repeating questions, oriented to self, not place or time, no focal findings Extremities: LLE postoperative dressing in place, dry, LUE in sling. N eurovascularly intact. Tremor noted of right hand Skin: Warm, diaphoretic (this was noted yesterday as well) Const: Vital Signs, click to edit/add: Vital Signs - 24 hr 01/15/25 11:30 01/15/25 11:41 01/15/25 12:05 Temperature 98.8 F 98.8 F 98.4 F Pulse Rate 92 91 Pulse Rate [Left D orsalis Pedis] Pulse Rate [Pulse Oximeter] 95 Respiratory Rate 18 18 18 Blood Pressure 126/44 L 130/73 Blood Pressure [Ri ght Calf] 128/58 L Pulse Oximetry 95 92 93 Oxygen Delivery Me thod Nasal Cannula Nasal Cannula Nasal Cannula Oxygen Flow Rate 2 2 2 01/15/25 12:06 01/15/25 12:36 01/15/25 13:06 Temperature 98.4 F 98.6 F 99.1 F Pulse Rate 91 90 90 Pulse Rate [Left D orsalis Pedis] Pulse Rate [Pulse Oximeter] Respiratory Rate 18 18 18 Blood Pressure 130/73 130/58 L 143/74 H Blood Pressure [Ri ght Calf] Pulse Oximetry 93 92 93 Oxygen Delivery Me thod Nasal Cannula Nasal Cannula Nasal Cannula Oxygen Flow Rate 2 2 2 01/15/25 13:36 01/15/25 14:06 01/15/25 14:36 Temperature 98.8 F 98.6 F 98.0 F Pulse Rate 92 92 81 Pulse Rate [Left D orsalis Pedis] Pulse Rate [Pulse Oximeter] Respiratory Rate 20 18 16 Blood Pressure 142/89 H 137/64 136/85 Blood Pressure [Ri ght Calf] Pulse Oximetry 95 92 93 Oxygen Delivery Me thod Nasal Cannula Nasal Cannula Nasal Cannula Oxygen Flow Rate 2 2 2 01/15/25 15:00 01/15/25 15:00 01/15/25 15:00 Temperature 98.2 F Pulse Rate 94 Pulse Rate [Left D orsalis Pedis] Pulse Rate [Pulse Oximeter] 90 Respiratory Rate 18 18 Blood Pressure Blood Pressure [Ri ght Calf] 134/57 L Pulse Oximetry 95 95 Oxygen Delivery Me thod Nasal Cannula Nasal Cannula Oxygen Flow Rate 2 2 01/15/25 15:00 01/15/25 15:00 01/15/25 15:13 Temperature 98.2 F 98.2 F Pulse Rate 90 Pulse Rate [Left D orsalis Pedis] Pulse Rate [Pulse Oximeter] 90 90 Respiratory Rate 18 18 16 Blood Pressure 134/57 L Blood Pressure [Ri ght Calf] 134/57 L Pulse Oximetry 95 95 Oxygen Delivery Me thod Nasal Cannula Nasal Cannula Oxygen Flow Rate 2 2 01/15/25 16:13 01/15/25 19:55 01/15/25 23:00 Temperature 98.1 F 98.2 F 98.2 F Pulse Rate 98 Pulse Rate [Left D orsalis Pedis] Pulse Rate [Pulse Oximeter] 91 107 H Respiratory Rate 18 18 16 Blood Pressure 126/86 Blood Pressure [Ri ght Calf] 141/86 H 116/67 Pulse Oximetry 92 91 93 Oxygen Delivery Me thod Nasal Cannula Room Air Nasal Cannula Oxygen Flow Rate 2 2 01/15/25 23:00 01/15/25 23:00 01/16/25 00:00 Temperature Pulse Rate 97 Pulse Rate [Left D orsalis Pedis] 87 Pulse Rate [Pulse Oximeter] 107 H Respiratory Rate 16 Blood Pressure Blood Pressure [Ri ght Calf] Pulse Oximetry 93 Oxygen Delivery Me thod Nasal Cannula Oxygen Flow Rate 2 01/16/25 03:00 01/16/25 07:00 01/16/25 08:45 Temperature 97.6 F 98.2 F Pulse Rate Pulse Rate [Left D orsalis Pedis] Pulse Rate [Pulse Oximeter] 107 H 100 Respiratory Rate 16 18 18 Blood Pressure Blood Pressure [Ri ght Calf] 116/60 106/76 Pulse Oximetry 90 90 90 Oxygen Delivery Me thod Nasal Cannula Nasal Cannula Nasal Cannula Oxygen Flow Rate 2 2 2 01/16/25 08:45 Temperature 98.2 F Pulse Rate Pulse Rate [Left D orsalis Pedis] Pulse Rate [Pulse Oximeter] 100 Respiratory Rate 18 Blood Pressure Blood Pressure [Ri ght Calf] 106/76 Pulse Oximetry Oxygen Delivery Me thod Oxygen Flow Rate Labs Labs: Laboratory Results - last 24 hr 01/14/25 01/15/25 01/16/25 05:25 15:30 09:27 WBC 9.90 RBC 3.80 L Hgb 9.6 L 9.9 L Hct 31.0 L MCV 82 MCH 26 MCHC 32 RDW Coeff of Dontae 18.0 H Plt Count 177 Neut % (Auto) 80.8 H Lymph % (Auto) 8.7 L Pierce % (Auto) 6.5 Eos % (Auto) 2.3 Baso % (Auto) 1.2 Neut # (Auto) 8.00 H Lymph # (Auto) 0.90 Pierce # (Auto) 0.60 Eos # (Auto) 0.23 Baso # (Auto) 0.12 Abs Immat Gran (auto) 0.05 Imm/Tot Granulo (auto) 0.5 VBG pH 7.428 VBG pCO2 39 L VBG pO2 < 30.1 VBG HCO3 25 Sodium 129 L Potassium 3.9 Chloride 99 Carbon Dioxide 24 Anion Gap 6 L BUN 15 Creatinine 0.7 Estimated Creat Clear 46.54 Estimated GFR 90 Glucose 97 Calcium 8.5 Blood Type B Positive Antibody Screen NEGATIVE Crossmatch (AHG) See Detail
[2025-01-16 11:50] LABS: Magnesium* 1.9 mg/dL (1.5-2.6); Phosphorus* 2.5 mg/dL (2.5-4.5)
[2025-01-16] MEDS: diazePAM 5 MG/ML inj 2.5 MG IV (12:04)
[2025-01-16] MEDS: SODIUM CHLORIDE 1 GM TABLET PO (12:05)
[2025-01-16] MEDS: RIVAROXABAN 10 MG TABLET PO (12:05)
--- NOTE | 2025-01-16 12:30 | CRLHL7_ITS ---
For Patients: As a result of the Century Cures Act, medical imaging exams and procedure reports are released immediately into your electronic medical record. You may view this report before your referring provider. If you have questions, please contact your health care provider. INDICATION: Status post ORIF. Pain with internal rotation. COMPARISON: 01/14/2025 left femur radiographs TECHNIQUE: Two radiographic view(s) of the left hip. FINDINGS: Interval intramedullary nail fixation of the left proximal femur fracture with improved osseous alignment. No evidence of immediate hardware complication. No new acute displaced fracture. There is postoperative soft tissue gas at the surgical bed. Mild osteophytosis of the hip. IMPRESSION: Interval intramedullary nail fixation of the left proximal femur fracture with improved osseous alignment. No evidence of immediate hardware complication. Dictated by Jerad Davis MD @ 01/16/2025 5:42:40 PM (Electronically Signed)
[2025-01-16] MEDS: PHENobarbitaL 260 MG in 0.9 % SODIUM CHLORIDE 100 ml 100 ML 208 MG IVPB (13:27)
--- NOTE | 2025-01-16 14:02 | PC.NURSE ---
Patient needing to have extremities held during administration of phenobarbital infusion, due to refusal of medication. Patient oriented x2 to self and current events otherwise stating she is in a cabin and unable to follow simple addition. Current CIWA 21. Gentle pressure applied to extremities, no pressure applied to joints or chest. Patient tolerated well, verbalized understanding of the need for medication once held. Hold discontinued as soon as medication was started via PIV.?
--- NOTE | 2025-01-16 14:12 | PC.SOCIAL ---
Met with pt. and spouse Ross @ [phone] to discuss discharge plans. Pt. has no preference on where to go for rehab after her hospital stay and pt.'s spouse prefers placement close to [place], [place]. Pt.'s spouse is concerned about paying for pt.'s hospital stay and SNF. Explained Med [facility] covered for a SNF and discussed applying for medical assistance. Gave him an application to apply for medical assistance. Referral Sent 1. Rossi -Contact Nigel Knight at [email or web address] 2. Brenda Perez-Contact Nigel Knight at [email or web address] Fidencio's review team is assessing and wanted updated surgery notes, therapies, infection/isolation precautions, and if pt.'s Flumazenill injection/freq. will continue. multimedia services coordinator will send updated notes tomorrow for further review.
--- NOTE | 2025-01-16 14:41 | PM.CCEN ---
Critical Care Event Note Summary Date Seen: 01/16/25 Code activated: No Narrative: This case had a high probability of a clinically significant, sudden, or life threatening deterioration of this patient's condition which required my full and direct attention, intervention and personal management. Seen in setting of acute worsening alcohol withdrawal. Wernicke's encephalopathy. Over the course of the day, increasing confusion, delirium. Unable to cooperate with nursing or therapies. Attempting to remove her left shoulder mobilizer. Screaming out. Reporting she is leaving. Oriented to self only. CIWAs increased to 18-22. Patient has not responded adequately to IV lorazepam and due to shortage of this medication, switch is made to IV diazepam. Limited response to initial dose of 2.5 mg. Phenobarbital 260 mg is used with little response. Diazepam for 10 mg given. Orders for physical hold for medication administration in place as patient not cooperating with request to give medications. Does actually consent, stating, OK go ahead give it once we are in position, not actually requiring a physical hold. Following 10mg diazepam, patient saturations dropping. Discussed with [facility] mold closer, Dr. Winsome G[place]. Unable to manage severe alcohol withdrawal at this facility. No ICU bed availability for 8 hours. Plan for intubation. Patient is intubated, on propofol drip. IV fentanyl p.r.n.. Signed out to my colleague, awaiting transfer. Critical care time: 75 - 104 mins
[2025-01-16] MEDS: diazePAM 5 MG/ML inj 10 MG IV (14:56)
[2025-01-16] MEDS: MAGNESIUM IV 2 GM/50 ML PIGGYBACK IVPB (15:02)
[2025-01-16] MEDS: THIAMINE 250 MG in 0.9 % SODIUM CHLORIDE 100 ml 100 ML 102 MG IVPB (15:15)
--- NOTE | 2025-01-16 15:45 | PM.DS1 ---
DS: Providers Provider Date Seen: 01/16/25 Date of admission: 01/14/25 08:28 Primary care physician: Becca Troy MD Admitting Clinician: Omaira Robertson MD Consults: 01/14/25 09:13 Consult to Bracelet Form Coverer [CONS] Routine Comment: Reason for Consult:: Discharge Planning Needs 01/15/25 09:13 Consult to Physical Therapy [CONS] Routine Comment: Reason(s) for PT Consult:: Evaluate and Treat Any Restrictions?:: See Comment Comment: pending surgery - start therapy 01/15 please 01/15/25 09:16 Consult to Occupational Therapy [CONS] Routine Comment: Reason(s) for OT Consult:: Evaluate and Treat Any Restrictions?:: See Comment Comment: pending surgery Attending Physician on discharge: Kaylee Warren [facility] Date of Discharge: 01/16/25 DS: Diagnosis Discharge Diagnosis (1) Displaced intertrochanteric fracture of left femur, initial encounter for closed fracture: Status: Acute Problem details: ORIF by Dr. Smallwood 01/14/2025. No complications. PT/OT consulted- abductor pillow ordered per PT as patient noted to hold LLE in internal rotation 01/16. No fall, has been NWB since surgery. Ordered a pelvis/L hip film but unable to obtain while patient awake as uncooperative. Defer to transferring facility. (2) Closed left humeral fracture: Status: Acute Problem details: Ortho following - surgery date moved to 01/18/25 given worsened delirium, increasing withdrawal symptoms Transfused blood in preparation of that surgery - another unit ordered on 01/15 for hgb 7.6 -> 9.9. Received postoperative dose Xarelto on 01/15, surgery aware NWB LUE SCDs for VTE PPX - Xarelto dose given 01/16 as surgery delayed - hold for 01/17 Surgical repair delayed as patient is transferred, intubated, for severe alcohol withdrawal. Defer to receiving facility. (3) Acute on chronic blood loss anemia: Status: Acute Problem details: May 2024 had a hemoglobin of 10.6 with an MCV of 81. Peripheral smear obtained with pathology report as follows: Peripheral blood, morphology: Mild normocytic anemia, with insufficient reticulocytosis Absolute neutrophilia with rare hypersegmented forms Platelets with normal morphology and granulation Comment: Occasional elliptocytes and tear-drop red cells are observed. While tear drop cells can be associated with marrow fibrosis, myelophthisic processes, and/or hematopoietic neoplasms, they are also seen in other forms of anemia, vitamin B12 deficiency, and splenic abnormalities. Elliptocytes are commonly seen in iron deficiency anemia, however the patient's ferritin is within normal limits and a normocytic anemia is present making this less likely. Finally, rare hypersegmented neutrophils are seen. Hypersegmentation is more often seen in megaloblastic anemia, however, they may also be seen in association with medications, nutritional disorders, and myelodysplastic syndrome. Clinical correlation is advised. 01/15 hgb 7.6 following 1 unit PRBC and hg 7.4 yesterday. Will receive another unit PRBC today. Holding Xarelto 01/16 hgb improved to 9.9. Okay for Xarelto dose today, holding tomorrow prior to surgery. Continue to monitor with daily labs Acute blood loss anemia in setting of significant left humeral and left femur fractures, s/p left femur ORIF. Hemoglobin improved to 9.9, stable, following total of 2 transfusions (01/14 and 01/15). (4) Wernicke encephalopathy: Status: Acute Problem details: In setting of chronic alcohol use disorder, exacerbated by recent surgery (ORIF) anesthesia, narcotics Continue IVF. Regular diet if able and safe to do so IV thiamine CIWA - diazepam in setting of lorazepam shortage, phenobarbital if needed Checking magnesium and phosphorus levels 2nd surgery has been delayed from 01/16-01/18, awaiting improvement Minimize narcotics as able, scheduled Tylenol, lidocaine patch, ice/heat Patient with history of daily alcohol use, Wampum Light reported, actual amount unknown. Worsening CIWA scores during course of hospital stay, > 20 by 01/16, increasing agitation and uncooperative. Severe alcohol withdrawal requiring higher level of care than available at this facility. Patient is intubated awaiting ICU bed availability. (5) Alcohol use disorder: Status: Acute Problem details: Monitor with CIWA Received dose of phenobarbital 01/14, continue prn director of consulting services aware for placement needs As above (6) Postoperative hypoxia: Status: Acute Problem details: Improving, now 2 L versus 3 L. Suspect this is from sedation from surgery, pain medication and underlying COPD Likely unable to appropriately use incentive spirometer given encephalopathy Minimize narcotics as able. Receiving benzodiazepine for withdrawals Continues to be risk for 2nd surgery Postoperatively, has continued to require supplemental oxygen, wean to 2 L from 3, intubated for severe alcohol withdrawal and transferred to outside ICU facility. (7) COPD (chronic obstructive pulmonary disease): Status: Acute Problem details: - not on supplemental oxygen as an outpatient - RT referral, will ask pharmacy to confirm inhalers (Breo vs Advair, Spiriva) - requiring supplemental oxygen (likely worsened by opiates) perioperatively - Likely unable to appropriately use incentive spirometer given encephalopathy (8) Cannabis use disorder: Status: Acute Problem details: Chronic (9) Malnutrition: Status: Acute Problem details: Poor nutrition prior to injuries according to family. Improve nutrition during this hospital stay (10) Sedentary lifestyle: Status: Acute Problem details: Very sedentary according to family. Likely will have a slow and prolonged rehab from current injuries (11) Hyponatremia: Status: Acute Problem details: - Na of 130, likely SIADH from Clomipramine, chronic alcohol use - will decrease back to 50mg once/day and follow Na 01/15 Na trending down, 128. Sodium tabs tid started 01/16 Na 129, continue to monitor (12) Postoperative hypotension: Status: Acute Problem details: RESOLVED Likely due to acute on chronic blood-loss anemia. Transfused 1 unit of blood. She has responded fairly well to normal saline. Continue to monitor perioperatively (13) Severe alcohol withdrawal delirium: Status: Acute Problem details: Patient with history of daily alcohol use, Wampum Light reported, actual amount unknown. Worsening CIWA scores of course of hospital stay, > 20 by 01/16, increasing agitation and uncooperative. Severe alcohol withdrawal requiring higher level of care than available at this facility. Patient is intubated awaiting ICU bed availability. Intubated. Vent support. Propofol. Fentanyl for pain management. DS: Summary Hospital Course Hospital Course: Course of care and details as noted above. Left humeral and left femur fracture status post fall late night 01/13 or aircraft dispatcher of 01/14. Orthopedic surgery for a left femur ORIF on 01/14. Left humeral fracture repair delayed, defer to outside facility. History of alcohol use disorder and marijuana use, daily, amount unknown as patient not forthcoming with this. Postoperatively, likely complicated by anesthesia and narcotics, increasing delirium, worsening alcohol withdrawal, CIWA > 20, not able to manage with diazepam (lorazepam on shortage and unavailable) or phenobarbital. Discussed with embossed or impressed lettering painter at [facility]. Patient is intubated for further management. Transferred to [facility] ICU. Spoke with patient's , Dillon, to update him of status and need for intubation and transfer. Verbalized understanding and in agreement. Remainder of chronic medical comorbidities were monitored and managed with home medications. Status at Discharge Cognitive/behavioral status at discharge: Intubated Time Spent with Patient Time attestation: Total time spent providing and/or coordinating discharge services: Time spent: Greater than 30 minutes Exam Narrative: Exam Narrative: Patient is intubated Const: Vital Signs, click to edit/add: Vital Signs - 24 hr 01/15/25 16:13 01/15/25 19:55 01/15/25 23:00 Temperature 98.1 F 98.2 F 98.2 F Pulse Rate 98 Pulse Rate [Left D orsalis Pedis] Pulse Rate [Pulse Oximeter] 91 107 H Respiratory Rate 18 18 16 Blood Pressure 126/86 Blood Pressure [Ri ght Calf] 141/86 H 116/67 Pulse Oximetry 92 91 93 Oxygen Delivery Me thod Nasal Cannula Room Air Nasal Cannula Oxygen Flow Rate 2 2 01/15/25 23:00 01/15/25 23:00 01/16/25 00:00 Temperature Pulse Rate 97 Pulse Rate [Left D orsalis Pedis] 87 Pulse Rate [Pulse Oximeter] 107 H Respiratory Rate 16 Blood Pressure Blood Pressure [Ri ght Calf] Pulse Oximetry 93 Oxygen Delivery Me thod Nasal Cannula Oxygen Flow Rate 2 01/16/25 03:00 01/16/25 07:00 01/16/25 08:45 Temperature 97.6 F 98.2 F Pulse Rate Pulse Rate [Left D orsalis Pedis] Pulse Rate [Pulse Oximeter] 107 H 100 Respiratory Rate 16 18 18 Blood Pressure Blood Pressure [Ri ght Calf] 116/60 106/76 Pulse Oximetry 90 90 90 Oxygen Delivery Me thod Nasal Cannula Nasal Cannula Nasal Cannula Oxygen Flow Rate 2 2 2 01/16/25 08:45 01/16/25 11:25 01/16/25 15:00 Temperature 98.2 F 98.6 F Pulse Rate Pulse Rate [Left D orsalis Pedis] 101 H 115 H Pulse Rate [Pulse Oximeter] 100 Respiratory Rate 18 18 32 H Blood Pressure Blood Pressure [Ri ght Calf] 106/76 144/65 H Pulse Oximetry 90 Oxygen Delivery Me thod Nasal Cannula Room Air Oxygen Flow Rate 2 01/16/25 15:32 01/16/25 15:34 Temperature 98.0 F Pulse Rate Pulse Rate [Left D orsalis Pedis] Pulse Rate [Pulse Oximeter] Respiratory Rate 32 H 16 Blood Pressure Blood Pressure [Ri ght Calf] 133/71 Pulse Oximetry 90 96 Oxygen Delivery Me thod Room Air Nasal Cannula Oxygen Flow Rate 2 2 DS: Data Data Completed and Pending Completed studies during hospitalization: Copies of films sent to receiving facility Labs on day of discharge: Labs from last 24 hours 01/16/25 01/16/25 01/15/25 11:12 09:27 15:30 WBC 9.90 RBC 3.80 L Hgb 9.9 L 9.6 L Hct 31.0 L MCV 82 MCH 26 MCHC 32 RDW Coeff of Dontae 18.0 H Plt Count 177 Neut % (Auto) 80.8 H Lymph % (Auto) 8.7 L [place] % (Auto) 6.5 Eos % (Auto) 2.3 Baso % (Auto) 1.2 Neut # (Auto) 8.00 H Lymph # (Auto) 0.90 [place] # (Auto) 0.60 Eos # (Auto) 0.23 Baso # (Auto) 0.12 Abs Immat Gran (auto) 0.05 Imm/Tot Granulo (auto) 0.5 VBG pH 7.428 VBG pCO2 39 L VBG pO2 < 30.1 VBG HCO3 25 Sodium 129 L Potassium 3.9 Chloride 99 Carbon Dioxide 24 Anion Gap 6 L BUN 15 Creatinine 0.7 Estimated Creat Clear 46.54 Estimated GFR 90 Glucose 97 Calcium 8.5 Phosphorus 2.5 Magnesium 1.9 Lab Acknowledgement Test Added Crossmatch (AHG) 01/14/25 05:25 WBC RBC Hgb Hct MCV MCH MCHC RDW Coeff of Dontae Plt Count Neut % (Auto) Lymph % (Auto) [place] % (Auto) Eos % (Auto) Baso % (Auto) Neut # (Auto) Lymph # (Auto) [place] # (Auto) Eos # (Auto) Baso # (Auto) Abs Immat Gran (auto) Imm/Tot Granulo (auto) VBG pH VBG pCO2 VBG pO2 VBG HCO3 Sodium Potassium Chloride Carbon Dioxide Anion Gap BUN Creatinine Estimated Creat Clear Estimated GFR Glucose Calcium Phosphorus Magnesium Lab Acknowledgement Crossmatch (AHG) See Detail Discharge Plan Discharge Disposition: [facility] Date of Admission: 01/14/25 08:28 Attending Provider on Discharge: Kaylee Warren Primary Care Provider: Becca Troy Condition: Critical Discharge Orders: Transfer of Care to Other Hospital (ORDER); Ordered 01/16/25 Ordered By: Sharon Hogan Discharge Comments: Intubated, propofol drip, fentanyl Oxygen: Yes Drips/Lines: 2 peripheral IVs Services not available here: ICU
--- NOTE | 2025-01-16 16:35 | CRLHL7_ITS ---
For Patients: As a result of the Century Cures Act, medical imaging exams and procedure reports are released immediately into your electronic medical record. You may view this report before your referring provider. If you have questions, please contact your health care provider. Indication: Check line placement. Technique: Frontal chest radiograph. Comparison: Chest radiograph from 01/14/2025. Findings: Interval placement of an endotracheal tube. The tip is difficult to visualize, but appears to be approximately 1.5 centimeters above the russ. Lungs are clear. No consolidation, effusion or pneumothorax. Cardiomediastinal silhouette is within normal limits. No significant osseous or soft tissue findings. Impression: 1. Interval placement of an endotracheal tube, with poor visualization of the tip tube which appears to terminate approximately 1.5 centimeters above the russ. 2. Lungs are clear. Dictated by Raúl Zendejas MD @ 01/16/2025 5:44:55 PM (Electronically Signed)
--- NOTE | 2025-01-16 16:44 | PM.ANBPRC ---
[facility] Medical History (Updated 01/16/25 @ 16:00 by Kaylee Warren PA-C) Sedentary lifestyle ?Z91.89 - Other specified personal risk factors, not elsewhere classified (ICD-10) Malnutrition ?E46 - Unspecified protein-calorie malnutrition (ICD-10) Cannabis use disorder ?F12.90 - Cannabis use, unspecified, uncomplicated (ICD-10) Alcohol use disorder ?F10.90 - Alcohol use, unspecified, uncomplicated (ICD-10) Acute on chronic blood loss anemia ?D62 - Acute posthemorrhagic anemia (ICD-10) Kidney stone ?N20.0 - Calculus of kidney (ICD-10) GERD (gastroesophageal reflux disease) ?K21.9 - Gastro-esophageal reflux disease without esophagitis (ICD-10) Depression ?F32.A - Depression, unspecified (ICD-10) Septic shock due to Escherichia coli ?A41.51 - Sepsis due to Escherichia coli [E. coli] (ICD-10) ?R65.21 - Severe sepsis with septic shock (ICD-10) Chronic anemia ?D64.9 - Anemia, unspecified (ICD-10) Hyponatremia ?E87.1 - Hypo-osmolality and hyponatremia (ICD-10) Acute renal failure due to urinary obstruction ?N17.9 - Acute kidney failure, unspecified (ICD-10) ?N13.9 - Obstructive and reflux uropathy, unspecified (ICD-10) Meniere disease ?H81.09 - Meniere's disease, unspecified ear (ICD-10) COPD (chronic obstructive pulmonary disease) ?J44.9 - Chronic obstructive pulmonary disease, unspecified (ICD-10) H/O traumatic brain injury ?Z87.820 - Personal history of traumatic brain injury (ICD-10) DIC (disseminated intravascular coagulation) ?D65 - Disseminated intravascular coagulation [defibrination syndrome] (ICD-10) Surgical History (Updated 01/15/25 @ 16:24 by Nicole Nichols ~ DRUM CARRIER, DRUM CARRIER) History of surgery on lower extremity (01/14/25) ?Z98.890 - Other specified postprocedural states (ICD-10) H/O cystoscopy ?Z98.890 - Other specified postprocedural states (ICD-10) S/P ectopic ?Z87.59 - Personal history of other complications of , childbirth and the puerperium (ICD-10) Kidney donor ?Z52.4 - Kidney donor (ICD-10) Social History (Updated 01/14/25 @ 11:30 by Sharon Hogan MD) Narrative: Lives with (Ross) in [place]; he would be medical decision maker if needed. Former cigarette smoker, currently daily THC smoker. Drinks Sigel Light daily (amount varies), no history of withdrawal. What is your current living situation?: I presently have a place to live Problems where you live: no known problems Problems where you live details: none In the past 12 months, utilities in danger of being shut off: no In past 12 months, lack of transportation kept you from medical appts, meetings, work, or getting things needed for daily living: no In the past 12 mos, have been you worried that your food would run out before you had money to buy more?: never true In the past 12 mos, the food you bought just didn't last and you didn't have money to buy more?: never true Smoking Status: Former smoker What tobacco products do you use: cigarettes Smoking packs per day: 0.8 Smoking cigarettes per day: 16.0 Years smoked: 50 Smoking pack-years: 40.00 Smoking quit date/years: >15 years ago Do you use any of these nicotine containing products: None Second hand tobacco smoke exposure: No How often do you have a drink containing alcohol: 4 or more times a week Alcohol type: beer Alcohol type details: Sigel light- depends on her mood for the day for how many beers she has How many standard drinks containing alcohol do you have on a typical day: 3 or 4 AUDIT-C Alcohol total score: 5 Non-prescribed substance use: marijuana (any form) How often does anyone, including family, friends and others, physically hurt you: never How often does anyone, including family, friends and others, insult or talk down to you: never How often does anyone, including family, friends and others, threaten you with harm: never How often does anyone, including family, friends and others, scream or curse at you: never service: No Meds Home Medications and Allergies Home Medications ?Medication ?Instructions ?Recorded ?Confirmed ?Type clomipramine 50 mg capsule 50 mg PO BID 01/14/25 01/14/25 History fluticasone furoate 200 1 ea inhalation DAILY 01/14/25 01/14/25 History mcg-vilanterol 25 mcg/dose inhalation powder (Breo Ellipta) meclizine 25 mg tablet 25 mg PO DAILY PRN dizziness 01/14/25 01/14/25 History omeprazole 20 mg capsule,delayed 20 mg PO QAM 01/14/25 01/14/25 History release tiotropium bromide 18 mcg capsule 1 cap inhalation DAILY 01/14/25 01/14/25 History with inhalation device (Spiriva with HandiHaler) Allergies Allergy/AdvReac Type Severity Reaction Status Date / Time codeine Allergy Mild Vomiting Verified 01/14/25 10:25 hydrocodone Allergy Mild Anxiety Verified 01/14/25 10:25 Results Labs Labs: Laboratory Results - last 24 hr 01/16/25 01/16/25 09:27 11:12 WBC 9.90 RBC 3.80 L Hgb 9.9 L Hct 31.0 L MCV 82 MCH 26 MCHC 32 RDW Coeff of Dontae 18.0 H Plt Count 177 Neut % (Auto) 80.8 H Lymph % (Auto) 8.7 L [place] % (Auto) 6.5 Eos % (Auto) 2.3 Baso % (Auto) 1.2 Neut # (Auto) 8.00 H Lymph # (Auto) 0.90 [place] # (Auto) 0.60 Eos # (Auto) 0.23 Baso # (Auto) 0.12 Abs Immat Gran (auto) 0.05 Imm/Tot Granulo (auto) 0.5 VBG pH 7.428 VBG pCO2 39 L VBG pO2 < 30.1 VBG HCO3 25 Sodium 129 L Potassium 3.9 Chloride 99 Carbon Dioxide 24 Anion Gap 6 L BUN 15 Creatinine 0.7 Estimated Creat Clear 46.54 Estimated GFR 90 Glucose 97 Calcium 8.5 Phosphorus 2.5 Magnesium 1.9 Lab Acknowledgement Test Added Vital Signs Vital Signs: Last Vital Signs Temp 98.0 F 01/16/25 16:20 Pulse 106 H 01/16/25 16:40 Resp 15 01/16/25 16:40 BP 117/57 L 01/16/25 16:40 Pulse Ox 97 01/16/25 16:40 O2 Del Method Intubated 01/16/25 16:40 O2 Flow Rate 2 01/16/25 16:40 Weight: 71.668 kg Height: 170.18 cm [facility]est[facility] Procedures [facility] emergent Start Time: :25 Stop Time: 16:45 Start Date: 01/16/25 Stop Date: 01/16/25 TITLE INVESTIGATOR: Jerson Mathew Performed by: ARIANNA Preanesthetic Checklist: IV checked, monitors and equipment checked and pre-op evaluation Difficult Airway: No Indications for Airway Management: airway protection Spontaneous Ventilation: present Preoxygenated: Yes Patient Position: ramp MILS Maintained Throughout: Yes Mask Difficulty Assessment: 1 - vent by mask Final Airway Details: called to CCU4, report from RN and provider at bedside. Labs checked. RT and pharmacy at bedside. Pre O2, induction meds pushed by myself, Glidescope #3 used X1, easy intubation, +BBS, +EtCO2, VSS throughout. Tube secured with RT and placed on vent by RT. Sedation started by RN and managed by provider. Report at handoff, vss, all staff Ok with anesthesia leaving the bedside. Final Airway Type: endotracheal airway (7.5, 22cm at lip ) Number of Attempts at Approach: 1 Dentition Unchanged: Yes
--- NOTE | 2025-01-16 17:53 | RESP.RT ---
Called to see patient after move to CCU, and sedation. Pt with hypopneas, RR 21. Decision to intubate for airway protection and ventilation with pt receiving propofol Intubated by anesthesia. Placement confirmed by auscultation, ETCO2 and CXR. Placed on Vent, RR 12, VT 450, FIO2 35%, peep 5cwp. Pt tolerating well, peak pressures 17cwp. Monitoring her until transport to tertiary center.
--- NOTE | 2025-01-16 18:19 | RESP.RT ---
Pt ETT above russ Pt on CMVt
[2025-01-16] MEDS: fentaNYL 100 MCG/2 ML inj 50 MCG IVP (18:20)
--- NOTE | 2025-01-16 18:29 | PC.NURSE ---
End of Shift ([id number]): Pt had been afebrile. Only A&O to self and occasionally time. patient continued to pull nasal cannula off face regardless of education given this shift. ?Pt has been agitated, calling staff ?bitches?. Pt would not keep sling in left arm, education provided on importance of this. Patients CIWAS continued to elevate throughout the shift, gave PRN medications per protocol, see other note. Gave report to ROBERTO White. ?
[2025-01-16] MEDS: PROPOFOL 10 MG/ML INJ 120 MG IVP (19:06)
[2025-01-16] MEDS: SUCCINYLCHOLINE 20 MG/ML INJ 180 MG IVP (19:06)
[2025-01-16] MEDS: fentaNYL 100 MCG/2 ML inj IV (19:07)
--- NOTE | 2025-01-16 19:25 | PC.NURSE ---
discharge. pt was ccu @ 1430 and 1 to 1 RN. Pt Ciwa was 29. she was alert x1. yelling and swearing at staff., she is very confused. she is seeing and hearing things. talked to MD and meds given Diazepam 10 mg IV was given. pt did settle down and we where able to put A-frame on and 02 and cont sao2. end tidal co2 was on and pt was under 20 RT and MD where notified. it was decided to RSI pt and put her on a ventilator and transfer pt out. see critical care record for RSI meds sedation and pain control. Zamudio was patent. IV is patent x2. arm sling was on. abductor pill is on. tele is NSR. she was npo. she was on a propofol drip was on and rask scores where -4-5. she was on a Andujar vent. vent was managed by RT with RN in the room. see RT note. pt did tolerate the vent with no difficulties. ems is here pt was more restless and 50 of fentanyl was given per MD. she left with EMS @ 1645 for ABNW.
== END 2025-01-16 18:45 | disposition short-term general hospital (02) | DRG 481 ==
LOC: ED 07:48 → MEDSURG 07:53
PROVIDERS: Family Medicine; Orthopaedic Surgery Sports Medicine; Physician Assistant; Admitting Provider Family Medicine; Emergency Provider Family Medicine; PCP Family Medicine; Visit Provider Family Medicine
PROC: 0QS706Z Reposition Left Upper Femur with Intramedullary Internal Fixation Device, Open Approach (ICD-10-PCS; CPT 27245; principal; 2025-01-14 11:15)
DX: S72.142A Displaced intertrochanteric fracture of left femur, initial encounter for closed fracture (principal); D62 Acute posthemorrhagic anemia; S42.292A Other displaced fracture of upper end of left humerus, initial encounter for closed fracture; E22.2 Syndrome of inappropriate secretion of antidiuretic hormone; F10.231 Alcohol dependence with withdrawal delirium; E51.2 Wernicke's encephalopathy; E46 Unspecified protein-calorie malnutrition; G89.18 Other acute postprocedural pain; G31.2 Degeneration of nervous system due to alcohol; R09.02 Hypoxemia; I95.81 Postprocedural hypotension; J44.9 Chronic obstructive pulmonary disease, unspecified; F12.90 Cannabis use, unspecified, uncomplicated; W18.09XA Striking against other object with subsequent fall, initial encounter; Y92.002 Bathroom of unspecified non-institutional (private) residence as the place of occurrence of the external cause; F41.9 Anxiety disorder, unspecified; F32.A Depression, unspecified; K21.9 Gastro-esophageal reflux disease without esophagitis; Z72.3 Lack of physical exercise; Z52.4 Kidney donor; Z87.820 Personal history of traumatic brain injury; Z87.891 Personal history of nicotine dependence
CPT/HCPCS: 01210; 01230; 31500; 36415; 36430; 51701; 64450; 70450; 71045; 72125; 72170; 73060; 73200; 73502; 73552; 76000; 76942; 80048; 80076; 81001; 82565; 82803; 82962; 83605; 83735; 84100; 84132; 84295; 84443; 84484; 84520; 85018; 85025; 85027; 85610; 86850; 86900; 86901; 86922; 87086; 93005; 94761; 97110; 97163; 97166; 97530; 97535; 99100; 99285; A9153; A9270; C1713; J0330; J0690; J1100; J1171; J2060; J2250; J2371; J2405; J2560; J2704; J2795; J3010; J3360; J3411; J3475; J3490; J7030; J7050; J7120; P9016

== ENCOUNTER 2025-01-16 18:03 | Outpatient (CLI) | payer MEDICARE, SELFPAY ==
--- OUTSIDE RECORDS SUMMARY | 2022-05-26 06:48 | XMS_ITS | Continuity of Care Document ---
Author Organization [facility] Address [address] [address] [place] [address] Phone Care Team Providers Care Packaging Materials Inspector Name Role Phone Elías Pérez MD Unavailable Unavailabl e Advance Directives Directive Yes / No Effective Date File Name No Information Encounters Encounter Description Practice Location Reason(s) For Visit Diagnoses Date Provider Providers Copied on Encounter [facility], [address] [address], [place], [place], [id number], tel:[phone] [facility] No Information 2 Elijah Mckinley. [address] [facility], [address], [id number] , [place]. tel:[phone] [facility], [address] [address], [place], [place], [id number], [place] tel:[phone] [facility] No Information 2 Elijah Mckinley. [address] [facility], [address], [id number] , [place]. tel:[phone] [facility], [address] [address], [place], [place], [id number], [place] [phone] [facility] External Referral 5 Julián Brown. [address] [facility], [address], [id number] , [place]. tel:[phone] Referring Provider: Becca Troy MD L, [address] [facility] [address], [place], [address]. tel:[phone] Family History Family Member Type Diagnosis Age At Onset No Information Immunizations Vaccine Date Status Comments SARS-COV-2 (COVID-19) vaccin e, mRNA, spike protein, LNP, preservative free, 30 mcg/0.3mL dose, marlene-sucrose formulation administered Note: M[facility] C bi- directional interface ; Source: Other Registry influenza, high-dose seasona l, quadrivalent, .7mL dose, preservative free administered Note: [facility] bi-direct ional interface ; Source: Other Registry SARS-COV-2 (COVID-19) vaccin e, mRNA, spike protein, LNP, preservative free, 30 mcg/0.3mL dose administered Note: [facility] bi-direct ional interface ; Source: Other Registry SARS-COV-2 (COVID-19) vaccin e, mRNA, spike protein, LNP, preservative free, 30 mcg/0.3mL dose administered Note: [facility] bi-direct ional interface ; Source: Other Registry SARS-COV-2 (COVID-19) vaccin e, mRNA, spike protein, LNP, preservative free, 30 mcg/0.3mL dose administered Note: [facility] bi-direct ional interface ; Source: Other Registry influenza, seasonal vaccine, quadrivalent, adjuvanted, .5mL dose, preservative free administered Note: [facility] bi-di rectional interface ; Source: Other Registry zoster vaccine recombinant administered N ote: [facility] bi-directional interface ; Source: Other Registry influenza, high dose seasona l, preservative-free administered Note: [facility] bi-direct ional interface ; Source: Other Registry Seasonal trivalent influenza vaccine, adjuvanted, preservative free administered Note: [facility] bi-direct ional interface ; Source: Other Registry Pneumovax 23 administered Note: [facility] bi-d irectional interface ; Source: Other Registry influenza, high dose seasona l, preservative-free administered Note: [facility] bi-direct ional interface ; Source: Other Registry Prevnar 13 administered Note: [facility] bi-d irectional interface ; Source: Other Registry Afluria Qd administered Note: [facility] bi-directional interface ; Source: Other Registry influenza, high dose seasona l, preservative-free administered Note: [facility] bi-direct ional interface ; Source: Other Registry zoster vaccine, live administered Note: [facility] bi-directional interface ; Source: Other Registry Influenza administered Note: [facility] bi-d irectional interface ; Source: Other Registry seasonal influenza, intrader mal, preservative free administered Note: [facility] bi-direct ional interface ; Source: Other Registry Influenza, seasonal, injectable administe red Note: [facility] bi- directional interface ; Source: Other Registry tetanus toxoid, reduced diphtheria toxoid, and acellular pertussis vaccine, adsorbed administered Note: [facility] b i-directional interface ; Source: Other Registry Influenza, seasonal, injectable administe red Note: [facility] bi- directional interface ; Source: Other Registry Influenza, seasonal, injectable administe red Note: [facility] bi- directional interface ; Source: Other Registry Pneumovax 23 administered Note: [facility] bi-d irectional interface ; Source: Other Registry Influenza, seasonal, injectable administe red Note: [facility] bi- directional interface ; Source: Other Registry Influenza, seasonal, injectable administe red Note: [facility] bi- directional interface ; Source: Other Registry Influenza, seasonal, injectable administe red Note: [facility] bi- directional interface ; Source: Other Registry Influenza, seasonal, injectable administe red Note: [facility] bi- directional interface ; Source: Other Registry Payers Payer name Insurance type Covered constitution party ID Authoriza tion(s) No Information Social History Type Description Quantity Date Captured Comments Sex Female Smoking Status No Information Chief Complaint And Reason For Visit No Information Reason For Referral Reason For Referral No Information Plan Of Treatment Date Type Action Status Referral Ordered: Colonoscopy Appointment date/timeframe: -today ordered History Of Present Illness Encounter Date Complaint History Of Prese nt Illness No Information Functional Status Date Functional Assessmen t No Information Instructions Date Instruction Additional Infor mation No Information Assessments Type Assessment Date No Information Patient Care Teams Name Effective Dates (start - stop) Status Members No Information
--- OUTSIDE RECORDS SUMMARY | 2022-05-26 06:48 | XMS_ITS | Continuity of Care Document ---
Author Organization [facility] Address [address] [address] [place] [address] Phone Care Team Providers Care Designer Name Role Phone Elías Pérez MD Unavailable Unavailabl e Advance Directives Directive Yes / No Effective Date File Name No Information Encounters Encounter Description Practice Location Reason(s) For Visit Diagnoses Date Provider Providers Copied on Encounter [facility], [address] [address], [place], [place], [id number], tel:[phone] [facility] No Information 2 Elijah Mckinley. [address] [facility], [address], [id number] , [place]. tel:[phone] [facility], [address] [address], [place], [place], [id number], [place] tel:[phone] [facility] No Information 2 Elijah Mckinley. [address] [facility], [address], [id number] , [place]. tel:[phone] [facility], [address] [address], [place], [place], [id number], [place] [phone] [facility] External Referral 5 Julián Brown. [address] [facility], [address], [id number] , [place]. tel:[phone] Referring Provider: Becca Troy MD L, [address] [facility] [address], [place], [address]. tel:[phone] Family History Family Member Type Diagnosis Age [...] Registry Payers Payer name Insurance type Covered democrat ID Authoriza tion(s) No Information Social History [...]
--- OUTSIDE RECORDS SUMMARY | 2025-01-17 18:08 | XMS_ITS | Encounter Summary ---
Author Organization [facility] Address [address], [place] [address] Care Team Providers Care Quality Eng Name Role Phone Becca Troy MD Primary Care Provider [phone] Encounter Details Date Type Department Care Team [...] on filedocumented in this encounter Care Teams Quality Eng Relationship Specialty Start Date End Date Becca Troy MD [address] [place] [address] PCP - General 07/07/05 documented as of this encounter
--- OUTSIDE RECORDS SUMMARY | 2025-01-17 18:08 | XMS_ITS | Encounter Summary ---
Author Organization [facility] Address [address], [place] [address] Care Team Providers Care Survey Operations Director Name Role Phone Becca Troy MD Primary Care Provider [phone] Encounter Details Date Type Department Care Team [...] on filedocumented in this encounter Care Teams Survey Operations Director Relationship Specialty Start Date End Date Becca Troy MD [address] [place] [address] PCP - General 07/07/05 documented as of this encounter
--- OUTSIDE RECORDS SUMMARY | 2025-01-17 18:08 | XMS_ITS | Encounter Summary ---
[facility] Address [address] [place] [address] Care Team Providers Care Hydraulic Riveter Name Role Phone Becca Troy MD Primary Care Provider [phone] Encounter Details Date Type Department Care Team [...] on filedocumented in this encounter Care Teams Hydraulic Riveter Relationship Specialty Start Date End Date Becca Troy MD [address] [place] [address] PCP - General 07/07/05 documented as of this encounter
--- OUTSIDE RECORDS SUMMARY | 2025-01-17 18:08 | XMS_ITS | Encounter Summary ---
Author Organization [facility] Address [address], [place] [address] Care Team Providers Care Baker Chef Name Role Phone Becca Troy MD Primary Care Provider [phone] Encounter Details Date Type Department Care Team [...] on filedocumented in this encounter Care Teams Baker Chef Relationship Specialty Start Date End Date Becca Troy MD [address] [place] [address] PCP - General 07/07/05 documented as of this encounter
--- OUTSIDE RECORDS SUMMARY | 2025-01-17 18:08 | XMS_ITS | Encounter Summary ---
Author Organization [facility] Address [address] [place] [address] Care Team Providers Care Meat Cutter Name Role Phone Becca Troy MD Primary Care Provider [phone] Encounter Details Date Type Department Care Team (Late st Contact Info) Description 04/07/2004 Consent for Procedure/Treatmen t External to External, [place] [address] KIDNEY DONOR CONSENT FORM Social History Tobacco [...] External, Provider - 04/07/2004 12:00 AM CDT NCED SEAL DELIVERY SYSTEM documented in this encounter Plan of Treatment Not on file documented as of this encounter Visit Diagnoses Not on filedocumented in this encounter Care Teams Meat Cutter Relationship Specialty Start Date End Date Becca Tryo MD [address] [place] [address] PCP - General 07/07/05 documented as of this encounter
--- OUTSIDE RECORDS SUMMARY | 2025-01-17 18:08 | XMS_ITS | Encounter Summary ---
Author Organization [facility] Address [address] [address] Care Team Providers Care Acquisitions Assistant Name Role Phone Becca Troy MD Primary Care Provider [phone] Encounter Details Date Type Department Care Team [...] on filedocumented in this encounter Care Teams Acquisitions Assistant Relationship Specialty Start Date End Date Becca Troy MD [address] [place] [address] PCP - General 07/07/05 documented as of this encounter
--- OUTSIDE RECORDS SUMMARY | 2025-01-17 18:08 | XMS_ITS | Encounter Summary ---
Author Organization [facility] Address [address], [place] [address] Care Team Providers Care Document Processor Name Role Phone Becca Troy MD Primary Care Provider [phone] Encounter Details Date Type Department Care Team [...] on filedocumented in this encounter Care Teams Document Processor Relationship Specialty Start Date End Date Becca Troy MD [address] [place] [address] PCP - General 07/07/05 documented as of this encounter
--- OUTSIDE RECORDS SUMMARY | 2025-01-17 18:08 | XMS_ITS | Encounter Summary ---
Author Organization [facility] Address [address] [address] Care Team Providers Care Marble Rubber Name Role Phone Becca Troy MD Primary Care Provider [phone] Encounter Details Date Type Department Care Team [...] on filedocumented in this encounter Care Teams Marble Rubber Relationship Specialty Start Date End Date Becca Troy MD [address] [place] [address] PCP - General 07/07/05 documented as of this encounter
--- OUTSIDE RECORDS SUMMARY | 2025-01-17 18:08 | XMS_ITS | Encounter Summary ---
Author Organization [facility] Address [address], [place] [address] Care Team Providers Care Church History Professor Name Role Phone Becca Troy MD Primary Care Provider [phone] Encounter Details Date Type Department Care Team [...] on filedocumented in this encounter Care Teams Church History Professor Relationship Specialty Start Date End Date Becca Troy MD [address] [place] [address] PCP - General 07/07/05 documented as of this encounter
--- OUTSIDE RECORDS SUMMARY | 2025-01-17 18:08 | XMS_ITS | Encounter Summary ---
Author Organization [facility] Address [address] [address] Care Team Providers Care Weathercaster Name Role Phone Becca Troy MD Primary Care Provider [phone] Encounter Details Date Type Department Care Team [...] on filedocumented in this encounter Care Teams Weathercaster Relationship Specialty Start Date End Date Becca Troy MD [address] [place] [address] PCP - General 07/07/05 documented as of this encounter
--- OUTSIDE RECORDS SUMMARY | 2025-01-17 18:08 | XMS_ITS | Encounter Summary ---
Author Organization [facility] Address [address], [place] [address] Care Team Providers Care Girl Friday Name Role Phone Becca Troy MD Primary Care Provider [phone] Encounter Details Date Type Department Care Team (Latest Contact Info) Description 12/29/1995 Orders Only Tammy Card MD [address] [facility] [address] [place], [place] [address] Social History Tobacco Use Types Packs/Day Years [...] on filedocumented in this encounter Care Teams Girl Friday Relationship Specialty Start Date End Date Becca Troy MD [address] [place] [address] PCP - General 07/07/05 documented as of this encounter
--- OUTSIDE RECORDS SUMMARY | 2025-01-17 18:08 | XMS_ITS | Encounter Summary ---
Author Organization [facility] Address [address], [place] [address] Care Team Providers Care Hydroelectric Component Machinist Name Role Phone Becca Troy MD Primary Care Provider [phone] Encounter Details Date Type Department Care Team [...] on filedocumented in this encounter Care Teams Hydroelectric Component Machinist Relationship Specialty Start Date End Date Becca Troy MD [address] [place] [address] PCP - General 07/07/05 documented as of this encounter
--- OUTSIDE RECORDS SUMMARY | 2025-01-17 18:08 | XMS_ITS | Encounter Summary ---
Author Organization [facility] Address [address], [place] [address] Care Team Providers Care Mannequin Mold Maker Name Role Phone Becca Troy MD Primary Care Provider [phone] Encounter Details Date Type Department Care Team [...] on filedocumented in this encounter Care Teams Mannequin Mold Maker Relationship Specialty Start Date End Date Becca Troy MD [address] [place] [address] PCP - General 07/07/05 documented as of this encounter
--- OUTSIDE RECORDS SUMMARY | 2025-01-17 18:08 | XMS_ITS | Encounter Summary ---
Author Organization [facility] Address [address] [address] Care Team Providers Care Scudding Inspector Name Role Phone Becca Troy MD Primary Care Provider [phone] Encounter Details Date Type Department Care Team [...] on filedocumented in this encounter Care Teams Scudding Inspector Relationship Specialty Start Date End Date Becca Troy MD [address] [place] [address] PCP - General 07/07/05 documented as of this encounter
--- OUTSIDE RECORDS SUMMARY | 2025-01-17 18:08 | XMS_ITS | Encounter Summary ---
Author Organization [facility] Address [address] [place] [address] Care Team Providers Care Kineseologist Name Role Phone Becca Troy MD Primary Care Provider [phone] Encounter Details Date Type Department Care Team (Late st Contact Info) Description 06/21/1996 Orders Only [facility] [place] Genna Mireles MD [address] [place], [place] [address] Social History Tobacco Use Types Packs/Day Years [...] on filedocumented in this encounter Care Teams Kineseologist Relationship Specialty Start Date End Date Becca Troy MD [address] [place] [address] PCP - General 07/07/05 documented as of this encounter
--- OUTSIDE RECORDS SUMMARY | 2025-01-17 18:08 | XMS_ITS | Encounter Summary ---
Author Organization [facility] Address [address] [place] [address] Care Team Providers Care Air Export Operations Agent Name Role Phone Becca Troy MD Primary Care Provider [phone] Encounter Details Date Type Department Care Team [...] on filedocumented in this encounter Care Teams Air Export Operations Agent Relationship Specialty Start Date End Date Becca Troy MD [address] [place] [address] PCP - General 07/07/05 documented as of this encounter
--- OUTSIDE RECORDS SUMMARY | 2025-01-17 18:08 | XMS_ITS | Encounter Summary ---
Author Organization [facility] Address [address], [place] [address] Care Team Providers Care Compensation Consultant Name Role Phone Becca Troy MD Primary Care Provider [phone] Encounter Details Date Type Department Care Team (Latest Contact Info) Description 03/21/1996 Orders Only Julissa Beverly, EMPLOYMENT REPRESENTATIVE, REGISTERED MEDICAL TRANSCRIPTIONIST Social History Tobacco Use Types Packs/Day Years [...] on filedocumented in this encounter Care Teams Compensation Consultant Relationship Specialty Start Date End Date Becca Troy MD [address] [place] [address] PCP - General 07/07/05 documented as of this encounter
--- OUTSIDE RECORDS SUMMARY | 2025-01-17 18:08 | XMS_ITS | Encounter Summary ---
Author Organization [facility] Address [address] [address] Care Team Providers Care School Crossing Guard Name Role Phone Becca Troy MD Primary [...] on filedocumented in this encounter Care Teams School Crossing Guard Relationship Specialty Start Date End Date Becca Troy MD [address] [place] [address] PCP - General 07/07/05 documented as of this encounter
--- OUTSIDE RECORDS SUMMARY | 2025-01-17 18:08 | XMS_ITS | Encounter Summary ---
Author Organization [facility] Address [address], [place] [address] Care Team Providers Care Bead Worker Sewing Name Role Phone Becca Troy MD Primary Care Provider [phone] Encounter Details Date Type Department Care Team [...] on filedocumented in this encounter Care Teams Bead Worker Sewing Relationship Specialty Start Date End Date Becca Troy MD [address] [place] [address] PCP - General 07/07/05 documented as of this encounter
--- OUTSIDE RECORDS SUMMARY | 2025-01-17 18:08 | XMS_ITS | Encounter Summary ---
Author Organization [facility] Address [address] [address] Care Team Providers Care Chili Maker Name Role Phone Becca Troy MD Primary Care Provider [phone] Encounter Details Date Type Department Care Team (Latest Contact Info) Description 01/14/2025 Orders Only HIM DEPARTMENT [place]Mayra [place] [address] Social History Tobacco Use Types Packs/Day Years [...] on file documented as of this encounter Procedures Procedure Name Priority Date/Time Associated Diagnosis Comments CT 01/14/2025 documented in this encounter Results * CT (01/14/2025) Anatomical Region Laterality Modality Other us Interface Provider DUMMY/OTHER/AR Final Resu lt documented in this encounter Visit Diagnoses Not on filedocumented in this encounter Care Teams Chili Maker Relationship Specialty Start Date End Date Becca Troy MD [address] [place] [address] PCP - General 07/07/05 documented as of this encounter
--- OUTSIDE RECORDS SUMMARY | 2025-01-17 18:08 | XMS_ITS | Encounter Summary ---
Author Organization [facility] Address [address], [place] [address] Care Team Providers Care Advice Line Rn Name Role Phone Becca Troy MD Primary Care Provider [phone] Encounter Details Date Type Department Care Team (Latest Contact Info) Description 01/14/2025 Orders Only HIM DEPARTMENT ProviderMayra [place] [address] Social History Tobacco Use Types Packs/Day Years [...] Procedure Name Priority Date/Time Associated Diagnosis Comments IMAGING 01/14/2025 documented in this encounter Results * IMAGING (01/14/2025) Anatomical Region Laterality Modality Other us Interface Provider DUMMY/OTHER/AR Final Resu lt documented in this encounter Visit Diagnoses Not on filedocumented in this encounter Care Teams Advice Line Rn Relationship Specialty Start Date End Date Becca Troy MD [address] [place] [address] PCP - General 07/07/05 documented as of this encounter
--- OUTSIDE RECORDS SUMMARY | 2025-01-17 18:08 | XMS_ITS | Encounter Summary ---
Author Organization [facility] Address [address], [place] [address] Care Team Providers Care Bindery Supervisor Name Role Phone Becca Troy MD Primary Care Provider [phone] Encounter Details Date Type Department Care Team [...] on filedocumented in this encounter Care Teams Bindery Supervisor Relationship Specialty Start Date End Date Becca Troy MD [address] [place] [address] PCP - General 07/07/05 documented as of this encounter
--- OUTSIDE RECORDS SUMMARY | 2025-01-17 18:08 | XMS_ITS | Encounter Summary ---
Author Organization [facility] Address [address] [place] [address] Care Team Providers Care Inventory Representative Name Role Phone Becca Troy MD Primary Care Provider [phone] Encounter Details Date Type Department Care Team [...] on filedocumented in this encounter Care Teams Inventory Representative Relationship Specialty Start Date End Date Becca Troy MD [address] [place] [address] PCP - General 07/07/05 documented as of this encounter
--- OUTSIDE RECORDS SUMMARY | 2025-01-17 18:08 | XMS_ITS | Encounter Summary ---
Author Organization [facility] Address [address] [place] [address] Care Team Providers Care Wool Puller Name Role Phone Becca Troy MD Primary Care Provider [phone] Encounter Details Date Type Department Care Team (Late st Contact Info) Description 07/09/2014 Scanned History External to Transferred Record, Provider ADDY LANZA [facility] Social History Tobacco Use Types Packs/Day Years [...] on filedocumented in this encounter Care Teams Wool Puller Relationship Specialty Start Date End Date Becca Troy MD [address] [place] [address] PCP - General 07/07/05 documented as of this encounter
--- OUTSIDE RECORDS SUMMARY | 2025-01-17 18:08 | XMS_ITS | Encounter Summary ---
Author Organization [facility] Address [address] [address] Care Team Providers Care Crate Builder Name Role Phone Becca Troy MD Primary Care Provider [phone] Encounter Details Date Type Department Care Team (Latest Contact Info) Description 07/23/1998 Orders Only Tammy Card MD [address] [facility] [address] [place], [place] [address] Social History Tobacco Use Types Packs/Day Years [...] on filedocumented in this encounter Care Teams Crate Builder Relationship Specialty Start Date End Date Becca Troy MD [address] [place] [address] PCP - General 07/07/05 documented as of this encounter
--- OUTSIDE RECORDS SUMMARY | 2025-01-17 18:08 | XMS_ITS | Encounter Summary ---
Author Organization [facility] Address [address] [address] Care Team Providers Care Furnace Filler Name Role Phone Becca Troy MD Primary Care Provider Encounter Details Date Type Department Care Team (Latest Contact Info) Description 01/14/2025 Orders Only HIM DEPARTMENT ProviderMayra MD [place] [address] Social History Tobacco Use Types Packs/Day Years [...] on filedocumented in this encounter Care Teams Furnace Filler Relationship Specialty Start Date End Date Becca Troy MD [address] [place] [address] PCP - General 07/07/05 documented as of this encounter
--- OUTSIDE RECORDS SUMMARY | 2025-01-17 18:08 | XMS_ITS | Encounter Summary ---
Author Organization [facility] Address [address], [place] [address] Care Team Providers Care Supply Chain Intern Name Role Phone Becca Troy MD Primary Care Provider [phone] Encounter Details Date Type Department Care Team [...] on filedocumented in this encounter Care Teams Supply Chain Intern Relationship Specialty Start Date End Date Becca Troy MD [address] [place] [address] PCP - General 07/07/05 documented as of this encounter
--- OUTSIDE RECORDS SUMMARY | 2025-01-17 18:08 | XMS_ITS | Encounter Summary ---
Author Organization [facility] Address [address] [address] Care Team Providers Care Shallot Cleaner Name Role Phone Becca Troy MD Primary Care Provider [phone] Encounter Details Date Type Department Care Team [...] on filedocumented in this encounter Care Teams Shallot Cleaner Relationship Specialty Start Date End Date Becca Troy MD [address] [place] [address] PCP - General 07/07/05 documented as of this encounter
--- OUTSIDE RECORDS SUMMARY | 2025-01-17 18:08 | XMS_ITS | Encounter Summary ---
Author Organization [facility] Address [address] [address] Care Team Providers Care Supply Chain Business Analyst Name Role Phone Becca Troy MD Primary Care Provider [phone] Encounter Details Date Type Department Care Team [...] in this encounter Care Teams Supply Chain Business Analyst Relationship Specialty Start Date End Date Becca Troy MD [address] [place] [address] PCP - General 07/07/05 documented as of this encounter
--- OUTSIDE RECORDS SUMMARY | 2025-01-17 18:08 | XMS_ITS | Encounter Summary ---
Author Organization [facility] Address [address] [place] [address] Care Team Providers Care Paper Cup Handle Machine Operator Name Role Phone Becca Troy MD Primary Care Provider [phone] Encounter Details Date Type Department Care Team [...] on filedocumented in this encounter Care Teams Paper Cup Handle Machine Operator Relationship Specialty Start Date End Date Becca Troy MD [address] [place] [address] PCP - General 07/07/05 documented as of this encounter
--- OUTSIDE RECORDS SUMMARY | 2025-01-17 18:08 | XMS_ITS | Encounter Summary ---
Author Organization [facility] Address [address] [address] Care Team Providers Care Voice Teacher Name Role Phone Becca Troy MD Primary Care Provider [phone] Encounter Details Date Type Department Care Team (Latest Contact Info) Description 01/09/1999 Orders Only Birdie Rosen, WEB KNITTER, RFID TECHNICIAN [address] [address] Social History Tobacco Use Types Packs/Day Years [...] on filedocumented in this encounter Care Teams Voice Teacher Relationship Specialty Start Date End Date Becca Troy MD [address] [place] [address] PCP - General 07/07/05 documented as of this encounter
--- OUTSIDE RECORDS SUMMARY | 2025-01-17 18:08 | XMS_ITS | Encounter Summary ---
Author Organization [facility] Address [address] [address] Care Team Providers Care Rn Provider Relations Name Role Phone Becca Troy MD Primary Care Provider [phone] Encounter Details Date Type Department Care Team (Late st Contact Info) Description 11/30/2018 Correspondence [facility] [address] [place] [address] Becca Troy MD [address] [place] [address] HISTORY PHYSICAL LAB RESULTS Social History [...] filedocumented in this encounter Care Teams Rn Provider Relations Relationship Specialty Start Date End Date Becca Troy MD [address] [place] [address] PCP - General 07/07/05 documented as of this encounter
--- OUTSIDE RECORDS SUMMARY | 2025-01-17 18:08 | XMS_ITS | Encounter Summary ---
Author Organization [facility] Address [address] [address] Care Team Providers Care Licensed Staff Mft Name Role Phone Becca Troy MD Primary Care Provider [phone] Encounter Details Date Type Department Care Team [...] on filedocumented in this encounter Care Teams Licensed Staff Mft Relationship Specialty Start Date End Date Becca Troy MD [address] [place] [address] PCP - General 07/07/05 documented as of this encounter
--- OUTSIDE RECORDS SUMMARY | 2025-01-17 18:08 | XMS_ITS | Encounter Summary ---
Author Organization [facility] Address [address] [address] Care Team Providers Care Basketball Referee Name Role Phone Becca Troy MD Primary Care Provider [phone] Encounter Details Date Type Department Care Team [...] on filedocumented in this encounter Care Teams Basketball Referee Relationship Specialty Start Date End Date Becca Troy MD [address] [place] [address] PCP - General 07/07/05 documented as of this encounter
--- OUTSIDE RECORDS SUMMARY | 2025-01-17 18:08 | XMS_ITS | Encounter Summary ---
Author Organization [facility] Address [address], [place] [address] Care Team Providers Care Lime Mixer Name Role Phone Becca Troy MD Primary Care Provider [phone] Encounter Details Date Type Department Care Team [...] on filedocumented in this encounter Care Teams Lime Mixer Relationship Specialty Start Date End Date Becca Troy MD [address] [place] [address] PCP - General 07/07/05 documented as of this encounter
--- OUTSIDE RECORDS SUMMARY | 2025-01-17 18:08 | XMS_ITS | Encounter Summary ---
Author Organization [facility] Address [address] [place] [address] Care Team Providers Care Specifications Checker Name Role Phone Becca Troy MD Primary Care Provider [phone] Encounter Details Date Type Department Care Team (Latest Contact Info) Description 08/30/2003 [facility] Abdi Rios MD [address] [place] [address] Social History Tobacco Use Types Packs/Day Years [...] * Abdi Rios - 08/30/2003 12:00 AM SALES DEVELOPMENT ASSOCIATE DATE OF SURGERY: 08/30/2003 STAFF SURGEON: Abdi [...] OPERATION: Left heart catheterization, left ventriculogram, selective north fork vessel diagnostic coronary angiography. INDICATIONS: The patient is a 52-year-old female, cigarette smoker who has experienced exertional dyspnea. To assess this, she recently underwent an exercise treadmill stress echocardiogram which was technically difficult, but suggested possible mid anterior and anteroapical inducible ischemia and adequate heart rate. She was seen in consultation by Dr. Gennaro Bella of the [facility] cardiology clinic who recommend invasive evaluation. The patient has been admitted to the outpatient care unit at [place], [place] today for performance of the above [...] steel guidewire and placement of a 4 Qatari vascular sheath. Diagnostic north fork vessel coronary angiography was then performed using 4 Qatari diagnostic catheters (JL 4, JR 4) and biplane imaging with nonionic contrast. A formal left heart catheterization was performed using a 145 degree angulated pigtail catheter. The same pigtail catheter was utilized for performance of a biplane left ventriculogram with imaging in a 30 degrees PICHARDO and 60 degrees ICELANDIC projections using 45 cc of nonionic contrast. All contrast was administered utilizing an [email or web address] power injector device. The patient tolerated the [...] Rios MD Transcribed: 08/30/2003 10:35:54 Doc #: [id number] cc: Víctor Browne MD Cardiac Catheterization Lab [...] 08/30/2003 OUTPATIENT OPERATIVE REPORT CONFIDENTIAL MEDICAL RECORD [address] [id number] Page 1 Patient: JESS[facility]URDICK [id number] Date of : 1950 Visit Date: 08/30/2003 OUTPATIENT OPERATIVE REPORT S DEVELOPMENT ASSOCIATE documented in this encounter Plan of Treatment Not on file documented as of this encounter Visit Diagnoses Not on filedocumented in this encounter Care Teams Specifications Checker Relationship Specialty Start Date End Date Becca Troy MD [address] [place] [address] PCP - General 07/07/05 documented as of this encounter
--- OUTSIDE RECORDS SUMMARY | 2025-01-17 18:08 | XMS_ITS | Encounter Summary ---
Author Organization [facility] Address [address], [place] [address] Care Team Providers Care Mds Coordinator Name Role Phone Becca Troy MD Primary Care Provider [phone] Encounter Details Date Type Department Care Team [...] on filedocumented in this encounter Care Teams Mds Coordinator Relationship Specialty Start Date End Date Becca Troy MD [address] [place] [address] PCP - General 07/07/05 documented as of this encounter
--- OUTSIDE RECORDS SUMMARY | 2025-01-17 18:08 | XMS_ITS | Encounter Summary ---
Author Organization [facility] Address [address] [place] [address] Care Team Providers Care Hot Press Operator Name Role Phone Becca Troy MD Primary Care Provider [phone] Encounter Details Date Type Department Care Team [...] on filedocumented in this encounter Care Teams Hot Press Operator Relationship Specialty Start Date End Date Becca Troy MD [address] [place] [address] PCP - General 07/07/05 documented as of this encounter
--- OUTSIDE RECORDS SUMMARY | 2025-01-17 18:08 | XMS_ITS | Encounter Summary ---
Author Organization [facility] Address [address] [address] Care Team Providers Care Keno Writer/Runner Name Role Phone Becca Troy MD Primary Care Provider [phone] Encounter Details Date Type Department Care Team [...] on filedocumented in this encounter Care Teams Keno Writer/Runner Relationship Specialty Start Date End Date Becca Troy MD [address] [place] [address] PCP - General 07/07/05 documented as of this encounter
--- OUTSIDE RECORDS SUMMARY | 2025-01-17 18:08 | XMS_ITS | Encounter Summary ---
Author Organization [facility] Address [address], [place] [address] Care Team Providers Care Senior Medical Director Name Role Phone Becca Troy MD Primary Care Provider [phone] Encounter Details Date Type Department Care Team [...] filedocumented in this encounter Care Teams Senior Medical Director Relationship Specialty Start Date End Date Becca Troy MD [address] [place] [address] PCP - General 07/07/05 documented as of this encounter
--- OUTSIDE RECORDS SUMMARY | 2025-01-17 18:08 | XMS_ITS | Encounter Summary ---
Author Organization [facility] Address [address] [address] Care Team Providers Care Metal Polisher Name Role Phone Becca Troy MD Primary Care Provider [phone] Encounter Details Date Type Department Care Team [...] on filedocumented in this encounter Care Teams Metal Polisher Relationship Specialty Start Date End Date Becca Troy MD [address] [place] [address] PCP - General 07/07/05 documented as of this encounter
--- OUTSIDE RECORDS SUMMARY | 2025-01-17 18:08 | XMS_ITS | Encounter Summary ---
[facility] Address [address] [address] Care Team Providers Care Guest Service Aide Name Role Phone Becca Troy MD Primary Care Provider [phone] Encounter Details Date Type Department Care Team (Latest Contact Info) Description 01/14/2025 Orders Only HIM DEPARTMENT ProviderMayra [place] [address] Social History Tobacco Use Types Packs/Day Years [...] on filedocumented in this encounter Care Teams Guest Service Aide Relationship Specialty Start Date End Date Becca Troy MD [address] [place] [address] PCP - General 07/07/05 documented as of this encounter
--- OUTSIDE RECORDS SUMMARY | 2025-01-17 18:08 | XMS_ITS | Clinical Summary ---
Author Organization [facility] Address [address] [place] [id number] Care Team Providers Care Electric Cell Tender Name Role Phone Becca Troy MD Primary Care Provider [phone] Allergies Active Allergy Reactions Criticality Noted Date Comments Codeine Vomiting 06/29/2014 Penicillins *Unknown 06/29/2014 Hydrocodone-Acetaminophen Anxiety 06/29/2014 Medications fluticasone-gabe meterol (ADVAIR DISKUS) 500-50 mcg/Dose diskus inhaler Inhale 1 Puff by mouth every 12 hours. 2024 Discontinued (Pharmacist change per medication history (E-cancel not sent)) tiotropium (SPIRIVA) 18 mcg inhalation capsule Inhale 18 mcg by mouth once daily. 2024 Discontinued (Pharmacist change per medication history (E-cancel not sent)) diazepam (VALIUM) 2 mg tablet Take 2-4 mg by mouth every 6 hours if needed for Other (Specify) (Menier disease). 04/15/20 14 2024 Discontinued (Pharmacist change per medication history (E-cancel not sent)) imipramine 25 mg tabletIndicatio ns:depression Take 175 mg by mouth at bedtime. Indications: DEPRESSION 2024 Discontinued (Pharmacist change per medication history (E-cancel not sent)) omeprazole (PRILOSEC) 20 mg Delayed-Release capsule Take 20 mg by mouth once daily before a meal. Suspended Phenylephrine-A cetaminophen-GG (TYLENOL SINUS CONGESTION PAIN) 5-325-200 mg tabIndications: flu-like symptoms Take 2 tablets by mouth every 4 hours if needed. Indications: FLU-LIKE SYMPTOMS 2024 Discontinued (Pharmacist change per medication history (E-cancel not sent)) FOLIC ACID/MULTIVITS- MIN (ADULT MULTIVITAMIN GUMMIES ORAL) Take 2 tablets by mouth once daily. 2024 Discontinued (Pharmacist change per medication history (E-cancel not sent)) medication order composer Phenelite extreme weight loss and appetite suppressant. Take 1 to 2 capsules once daily before a meal. 2024 Discontinued (Pharmacist change per medication history (E-cancel not sent)) albuterol HFA (PROAIR HFA) 90 mcg/actuation inhaler Inhale 2 Puffs by mouth. 04/27/20 13 2024 Discontinued (Pharmacist change per medication history (E-cancel not sent)) cholecalciferol (VITAMIN D) 1,000 unit tablet Take 1,000 Units by mouth. 09/13/19 12 2024 Discontinued (Pharmacist change per medication history (E-cancel not sent)) acetaminophen (TYLENOL) 325 mg tablet Take 1 tablet by mouth every 4 hours if needed for Pain (For mild pain.). Max acetaminophen dose: 4000mg in 24 hrs. 0 07/09/20 14 2024 Discontinued (Pharmacist change per medication history (E-cancel not sent)) clomiPRAMINE 50 mg capsule Take 50 mg by mouth two times daily with meals. Suspended meclizine 25 mg tablet Take 25 mg by mouth once daily if needed for Vertigo. Suspended fluticasone furoate-vilante roL (Breo Ellipta) 200-25 mcg/dose inhalation delivery engineer Inhale 1 Puff by mouth once daily. 2024 Discontinued (Pharmacist change per medication history (E-cancel not sent)) Active Problems Problem Noted Date Diagnosed Date Acute encephalopathy 01/17/2025 Hypotension 01/17/2025 Alcohol use 01/17/2025 Alcohol withdrawal 01/17/2025 Acute hypoxic respiratory failure 01/17/2025 On mechanically assisted ventilation 01/17/2025 Closed left subtrochanteric femur fracture 01/17 Acute hypoxic respiratory failure requiring rein tubation [...] level 06/29/2014 07/02/2014 Impaired renal function 10/01/201109/2013 Encounters Date Type Department Care Team Description 01/16/2025 8:15 PM CDT - Present Hospital Encounter [facility] [address] [place] [address] Bjorn Gresham MD Williams, David Michael, DO Davis, DO Nydia Velez, Ketan Youngblood MD from Last 3 Months Immunizations Immunization Administration Dates Next Due Influenza, [...] on file Legal Sex Female 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 Gender Identity Not on file Sexual Orientation Not on file Obstetrics History Last Filed Vital Signs Vital Sign Reading Time Taken Comments Blood Pressure 130/75 01/17/2025 4:50 PM CDT Pulse 124 01/17/2025 4:50 PM CDT Temperature 37.3 C (99.2 F) 01/17/2025 4:00 PM CDT Respiratory Rate 15 01/17/2025 4:50 PM CDT Oxygen Saturation 96% 01/17/2025 4:50 PM CDT Inhaled Oxygen Concentration - - Weight 74.8 kg (164 lb 14.5 oz) 01/16/2025 9:00 PM CDT Height 171.4 cm (5' 7.48) 01/16/2025 9:00 PM CD T Body Mass Index 25.46 01/16/2025 9:00 PM CDT Plan of Treatment Health Maintenance Due Date Last Done Comments Tdap 11/28/1959 Depression screening for age 12+ 1960 BMI (ht and wt on same day) for age 18+ 1966 Hepatitis C screening for age 18-79 1966 Pneumococcal series for age 50+ (1 of 2 - PCV) 11/28/1967 Tetanus booster 1968 Zoster (shingles) series for age 50+ (1 of 2) 1998 DEXA/DXA scan for age 65+ 2013 RSV vaccine for adults or (1 - 1-dose 75+ series) 11/28/2023 COVID-19 vaccine series ( season) 2024 06/27/2024, 07/02/2023, 05/14/2022, Additional history exists Influenza Vaccine (Season Ended) 2025 04/27/2013 Hepatitis B series for 19+ Aged Out N o longer eligible based on patient's age to complete this topic Medical Devices Implanted Type Area Welfare Visitor Device Identifier Shelf Expiration Date Model / Serial / Lot Stent Contour [id number] - [id number] Implanted:Qty: 1 on 06/29/2014 by Tesfaye Martinez MD at [facility] Left: Ureter [facility] 04/29/2017 [id number] / / [id number] Stent Uret [id number] W/Tether - [id number] Implanted:Qty: 1 on 07/17/2014 at [facility] Left: Ureter [employer] [id number] / / [id number] Procedures * The patient is currently admitted. The information in this section might not be complete until the patient is discharged. Procedure Name Priority Date/Time Associated Diagnosis Comments SCAN CORRESP-LABORATORY RESULTS 01/17/2025 11:01 AM CDT SCAN CORRESP-IMAGING 01/17/2025 11:00 AM CDT SCAN CORRESP-LABORATORY RESULTS 01/17/2025 10:58 AM CDT SCAN CORRESP-EKG RESULTS 01/17/2025 10:56 AM CDT SPUTUM CULTURE, STAIN Today 01/17/2025 10:47 AM CDT AMMONIA Early AM 01/17/2025 10:47 AM CDT GLUCOSE METER Timed 01/17/2025 10:19 AM CDT XR CHEST 1 VIEW PORTABLE Routine 01/17/2025 9:55 AM CDT SCAN-CARDIAC STRIP 01/17/2025 7: 57 AM CDT CBC W PLT NO DIFF Early AM 01/17/2025 4:5 0 AM CDT BASIC METABOLIC PANEL Early AM 01/17/2025 4:50 AM CDT MAGNESIUM Early AM 01/17/2025 4:50 AM CDT PHOSPHORUS Early AM 01/17/2025 4:50 AM CDT CK TOTAL Timed 01/17/2025 4:50 AM CDT TRIGLYCERIDES Timed 01/17/2025 4:50 AM CDT SCAN-CARDIAC STRIP 01/17/2025 3: 03 AM CDT SCAN-CARDIAC STRIP 01/17/2025 12 :03 AM CDT GLUCOSE METER Timed 01/16/2025 9:18 PM CDT TSH WITH REFLEX Add On 01/16/2025 9:13 PM CDT RED CELL MORPHOLOGY STAT 01/16/2025 9 :13 PM CDT PLATELET ESTIMATE STAT 01/16/2025 9:1 3 PM CDT MANUAL DIFFERENTIAL STAT 01/16/2025 9 :13 PM CDT CBC WITH AUTO DIFFERENTIAL STAT 01/16/2025 9:13 PM CDT PROTIME-INR STAT 01/16/2025 9:13 PM CDT HEPATIC FUNCTION PANEL STAT 9:13 PM CDT PHOSPHORUS STAT 01/16/2025 9:13 PM CDT MAGNESIUM STAT 01/16/2025 9:13 PM CDT CBC WITH AUTO DIFFERENTIAL STAT 01/16/2025 9:13 PM CDT BASIC METABOLIC PANEL STAT 01/16/2025 9:13 PM CDT XR CHEST 1 VIEW PORTABLE STAT 01/16/2025 8:25 PM CDT from Last 3 Months Results * SCAN CORRESP-LABORATORY RESULTS (01/17/2025 11:01 AM CDT) Only the most recent of2 resultswithin the time period is included. Narrative 01/17/2025 11:01 AM CDT Ordered by an unspecified provider. us Other Clinical Staff OTHER Final Resul t * SCAN CORRESP-IMAGING (01/17/2025 11:00 AM CDT) Anatomical Region Laterality Modality Other Narrative 01/17/2025 11:00 AM CDT Ordered by an unspecified provider. us Other Clinical Staff OTHER Final Resul t * SCAN CORRESP-EKG RESULTS (01/17/2025 10:56 AM CDT) Narrative 01/17/2025 10:56 AM CDT Ordered by an unspecified provider. Other Clinical Staff OTHER Final Resul t * AMMONIA (01/17/2025 10:47 AM CDT) AMMONIA 18 16 - 60 umol/L 01/17/2025 11:20 AM CDT [facility] Blood BLOOD SPECIMEN / Unknown Non-Lab Venipuncture / Unknown 01/17/2025 10:47 AM CDT 01/17/2025 10:59 AM CDT Narrative [facility] - 01/17/2025 11:20 AM CDT 1. Sulfasalazine and its metabolite Sulfapyridine at therapeutic concentrations may lead to falsely low results. 2. Temozolomide and its metabolite MTIC may lead to falsely elevated results, and its metabolite AIC may lead to falsely low results. Alejandra Holland DO CHEMISTRY Final Result Performing Organization Address City/[facility]/ZIP Co de Phone Number [facility] [address] [address], [place] * (ABNORMAL) GLUCOSE METER (01/17/2025 10:19 AM CDT) Only the most recent of2 resultswithin the time period is included. GLUCOSE METER 106(H) 65 - 100 mg/dL 01/17/2025 10:24 AM CDT [facility] Blood BLOOD SPECIMEN / Unknown 01/17/2025 10:19 AM CDT 01/17/2025 10:24 AM CDT Ketan Stafford MD CHEMISTRY Final Re sult Performing Organization Address City/[facility]/ZIP Co de Phone Number [facility] [address] [address], [place] * XR CHEST 1 VIEW PORTABLE (01/17/2025 9:55 AM CDT) Only the most recent of2 resultswithin the time period is included. Anatomical Region Laterality Modality HEART, THORAX, CHEST Digital Rad iography 01/17/2025 10:3 9 AM CDT Impressions 01/17/2025 10:39 AM CDT 1. Interval placement of central line with tip at the cavoatrial junction. 2. Lungs low in volume with mild right base atelectasis. 3. Pulmonary venous congestion. 4. ET tube tip 1 cm above the russ. Dictated by Gennaro Cooper MD @ Jan 17 2025 10:39AM (Electronically Signed) [email or web address] Narrative 01/17/2025 10:39 AM CDT For Patients: As a result of the Cures Act, medical imaging exams and procedure reports are released immediately into your electronic medical record. You may view this report before your referring provider. If you have questions, please contact your health care provider. INDICATION: Line placement TECHNIQUE: Semi upright portable AP image of the chest COMPARISON: 01/16/2025 FINDINGS: Interval placement of right jugular central line with tip at the cavoatrial junction. Endotracheal tube tip 1 cm above the russ. Lungs low in volume with crowded markings and mild right basilar atelectasis. Heart size within normal limits. Pulmonary veins congested. Procedure Note Gennaro Cooper MD - 01/17/2025 For Patients: As a result of the Cures Act, medical imagingexams and procedure reports are released immediately into your electronicmedical record. You may view this report before your referring provider.If you have questions, please contact your health care provider. INDICATION: Line placement TECHNIQUE: Semi upright portable AP image of the chest COMPARISON: 01/16/2025 FINDINGS: Interval placement of right jugular central line with tip at thecavoatrial junction. Endotracheal tube tip 1 cm above the russ. Lungslow in volume with crowded markings and mild right basilar atelectasis.Heart size within normal limits. Pulmonary veins congested. IMPRESSION: 1. Interval placement of central line with tip at the cavoatrialjunction. 2. Lungs low in volume with mild right base atelectasis. 3. Pulmonary venous congestion. 4. ET tube tip 1 cm above the russ. Dictated by Gennaro Cooper MD @ Jan 17 2025 10:39AM (Electronically Signed) [email or web address] Kermit Santillan MD GENERAL IMAGING Final Result * SCAN-CARDIAC STRIP (01/17/2025 7:57 AM CDT) us Scanner OTHER Final Result * (ABNORMAL) CBC W PLT NO DIFF (01/17/2025 4:50 AM CDT) WHITE BLOOD COUNT 14.5(H) 4.5 - 11.0 thou/cu mm 01/17/2025 5:24 AM CDT [facility] RED BLOOD COUNT 3.51(L) 4.00 - 5.20 mil/cu mm 01/17/2025 5:24 AM CDT [facility] HEMOGLOBIN 9.1(L) 12.0 - 16.0 g/dL 01/17/2025 5:24 AM CDT [facility] HEMATOCRIT 29.0(L) 33.0 - 51.0 % 01/17/2025 5:24 AM CDT [facility] MCV 83 80 - 100 fL 01/17/2025 5:24 AM CDT [facility] MCH 25.9(L) 26.0 - 34.0 pg 01/17/2025 5:24 AM CDT [facility] MCHC 31.4(L) 32.0 - 36.0 g/dL 01/17/2025 5:24 AM CDT [facility] RDW 18.5(H) 11.5 - 15.5 % 01/17/2025 5:24 AM CDT [facility] PLATELET COUNT 170 140 - 440 thou/cu mm 01/17/2025 5:24 AM CDT [facility] MPV 01/17/2025 5:24 AM CDT [facility] Comment:Unable to be determi rajendra NRBC 0.0 % 01/17/2025 5:24 AM CDT [facility] ABS NRBC 0.0 thou /cu mm 01/17/2025 5:24 AM CDT [facility] Blood BLOOD SPECIMEN / Unknown Venipuncture / Unknown 01/17/2025 4:50 AM CDT 01/17/2025 5:11 AM CDT Alejandra Holland DO HEMATOLOGY Final Result Performing Organization Address City/[facility]/ZIP Co de Phone Number [facility] [address] [address], [place] * TRIGLYCERIDES propofol (01/17/2025 4:50 AM CDT) TRIGLYCERIDES 61 <150 mg/dL 01/17/2025 5:42 AM CDT [facility] PROVIDER ORDERED STATUS RANDOM 01/17/2025 5:42 AM CDT [facility] Blood BLOOD SPECIMEN / Unknown Venipuncture / Unknown 01/17/2025 4:50 AM CDT 01/17/2025 5:11 AM CDT Bjorn Gresham DO CHEMISTRY Final Result Performing Organization Address [facility] Co de Phone Number [facility] [address] [phone], [place] * PHOSPHORUS (01/17/2025 4:50 AM CDT) Only the most recent of2 resultswithin the time period is included. PHOSPHORUS 3.4 2.5 - 4.5 mg/dL 01/17/2025 5:42 AM CDT [facility] Blood BLOOD SPECIMEN / Unknown Venipuncture / Unknown 01/17/2025 4:50 AM CDT 01/17/2025 5:11 AM CDT Kodak Riggins MD CHEMISTRY Final Result Performing Organization Address City/[facility]/ZIP Co de Phone Number [facility] [address] [address], [place] * MAGNESIUM (01/17/2025 4:50 AM CDT) Only the most recent of2 resultswithin the time period is included. MAGNESIUM 2.1 1.6 - 2.4 mg/dL 01/17/2025 5:42 AM CDT [facility] Blood BLOOD SPECIMEN / Unknown Venipuncture / Unknown 01/17/2025 4:50 AM CDT 01/17/2025 5:11 AM CDT Kodak Riggins MD CHEMISTRY Final Result Performing Organization Address [facility]/ZIP Co de Phone Number [facility] [address] [place] [address], * CK TOTAL propofol (01/17/2025 4:50 AM CDT) Pathologist [facility] CK,TOTAL 29 26 - 192 IU/L 01/17/2025 5:42 AM CDT [facility] Blood BLOOD SPECIMEN / Unknown Venipuncture / Unknown 01/17/2025 4:50 AM CDT 01/17/2025 5:11 AM CDT Bjorn Gresham DO CHEMISTRY Final Result Performing Organization Address [facility] Co de Phone Number [facility] [address] [place] [address], * (ABNORMAL) BASIC METABOLIC PANEL (01/17/2025 4:50 AM CDT) Only the most recent of2 resultswithin the time period is included. Pathologist [facility] SODIUM 131(L) 136 - 145 mmol/L 01/17/2025 5:42 AM CDT [facility] POTASSIUM 4.5 3.5 - 5.1 mmol/L 01/17/2025 5:42 AM CDT [facility] CHLORIDE 99 98 - 107 mmol/L 01/17/2025 5:42 AM CDT [facility] CO2,TOTAL 21(L) 22 - 29 mmol/L 01/17/2025 5:42 AM CDT [facility] ANION GAP 11 5 - 18 01/17/2025 5:42 AM CDT [facility] GLUCOSE 99 70 - 99 mg/dL 01/17/2025 5:42 AM CDT [facility] CALCIUM 7.9(L) 8.8 - 10.4 mg/dL 01/17/2025 5:42 AM CDT [facility] Comment: Reference ranges for this test were updated on 06/05/2024 to reflect our healthy population more accurately. Reference range changes are not retroactively applied to results, but previous results using the same methodology can be interpreted in the context of the new reference range. BUN 16 8 - 23 mg/dL 01/17/2025 5:42 AM CDT [facility] CREATININE 0.78 0.50 - 0.90 mg/dL 01/17/2025 5:42 AM T [facility] BUN/CREAT RATIO 21(H) 10 - 20 5:42 AM T [facility] eGFR 79(L) >90 mL/min/1. 73m2 01/17/2025 5:42 AM CDT [facility] Comment:As of 2021, eG FR is calculated by the CKD-EPI creatinine equation without race adjustment. eGFR can be influenced by muscle mass, exercise, and diet. The reported eGFR is an estimation only and is only applicable if the renal function is stable. Blood BLOOD SPECIMEN / Unknown Venipuncture / Unknown 01/17/2025 4:50 AM CDT 01/17/2025 5:11 AM CDT us Alejandra Holland DO CHEMISTRY Final Result [facility] [address] [place] [address], * SCAN-CARDIAC STRIP (01/17/2025 3:03 AM CDT) us Scanner OTHER Final Result * SCAN-CARDIAC STRIP (01/17/2025 12:03 AM CDT) us Scanner OTHER Final Result * (ABNORMAL) CBC WITH AUTO DIFFERENTIAL (01/16/2025 9:13 PM CDT) WHITE BLOOD COUNT 11.6(H) 4.5 - 11.0 thou/cu mm 01/16/2025 10:24 PM CDT [facility] RED BLOOD COUNT 3.62(L) 4.00 - 5.20 mil/cu mm 01/16/2025 10:24 PM CDT [facility] HEMOGLOBIN 9.5(L) 12.0 - 16.0 g/dL 01/16/2025 10:24 PM CDT [facility] HEMATOCRIT 29.4(L) 33.0 - 51.0 % 01/16/2025 10:24 PM CDT [facility] MCV 81 80 - 100 fL 01/16/2025 10:24 PM CDT [facility] MCH 26.2 26.0 - 34.0 pg 01/16/2025 10:24 PM CDT [facility] MCHC 32.3 32.0 - 36.0 g/dL 01/16/2025 10:24 PM CDT [facility] RDW 18.4(H) 11.5 - 15.5 % 01/16/2025 10:24 PM CDT [facility] PLATELET COUNT 156 140 - 440 thou/cu mm 01/16/2025 10:24 PM CDT [facility] MPV 01/16/2025 10:24 PM CDT [facility] Comment:Unable to be determi rajendra NRBC 0.0 % 01/16/2025 10:24 PM CDT [facility] ABS NRBC 0.0 thou /cu mm 01/16/2025 10:24 PM CDT [facility] Blood BLOOD SPECIMEN / Unknown Venipuncture / Unknown 01/16/2025 9:13 PM CDT 01/16/2025 9:19 PM CDT Bjorn Gresham DO HEMATOLOGY Final Result [facility] [address] [place] [address], [place] * (ABNORMAL) RED CELL MORPHOLOGY (01/16/2025 9:13 PM CDT) Pathologist [facility] ELLIPTOCYTES Moderate 01/16/2025 10:23 PM CDT [facility] TEARDROP CELLS Moderate 01/16/2025 10:23 PM CDT [facility] RBC COMMENT Present(A) RBC morphology appears normal, RBC morphology within normal limits for newborns. 01/16/2025 10:23 PM CDT [facility] LARGE PLATELETS Present 10:23 PM CDT [facility] Blood BLOOD SPECIMEN / Unknown Venipuncture / Unknown 01/16/2025 9:13 PM CDT 01/16/2025 9:19 PM CDT Bjorn Gresham DO HEMATOLOGY Final Result Performing Organization Address City/[facility]/ZIP Co de Phone Number [facility] [address] [place] [address], [place] * PLATELET ESTIMATE (01/16/2025 9:13 PM CDT) Pathologist [facility] PLATELET ESTIMATE Adequate Adequate, No estimate 01/16/2025 10:23 PM CDT [facility] Blood BLOOD SPECIMEN / Unknown Venipuncture / Unknown 01/16/2025 9:13 PM CDT 01/16/2025 9:19 PM CDT Bjorn Gresham DO HEMATOLOGY Final Result Performing Organization Address City/[facility]/ZIP Co de Phone Number [facility] [address] [place] [address], [place] * TSH WITH REFLEX (01/16/2025 9:13 PM CDT) Pathologist [facility] TSH 1.30 0.27 - 4.20 uIU/mL 01/17/2025 12:51 AM CDT [facility] Blood BLOOD SPECIMEN / Unknown Venipuncture / Unknown 01/16/2025 9:13 PM CDT 01/16/2025 9:19 PM CDT [facility] - 01/17/2025 12:51 AM CDT In Adults, TSH values between 5.00 and 10.00 uIU/ml do not necessarily indicate the presence of Hypothyroidism. Correlation with clinical findings such as presence of goiter and/or Thyroperoxidase (TPO) Antibody may be helpful. For more information please refer to JAMES 2004; 291: [id number]. us Alejandra Holland DO CHEMISTRY Final Result [facility] [address] [place] [address], [place] * (ABNORMAL) MANUAL DIFFERENTIAL (01/16/2025 9:13 PM CDT) % NEUTROPHILS 84.0 % 01/16/2025 10:23 PM CDT [facility] % LYMPHOCYTES 7.0 % 01/16/2025 10:23 PM CDT [facility] % MONOCYTES 5.0 % 01/16/2025 10:23 PM CDT [facility] % EOSINOPHILS 3.0 % 01/16/2025 10:23 PM CDT [facility] % BASOPHILS 1.0 % 01/16/2025 10:23 PM CDT [facility] NEUTROPHILS ABSOLUTE 9.7(H) 1.7 - 7.0 thou/cu mm 01/16/2025 10:23 PM CDT [facility] LYMPHOCYTES ABSOLUTE 0.8(L) 0.9 - 2.9 thou/cu mm 01/16/2025 10:23 PM CDT [facility] MONOCYTES ABSOLUTE 0.6 <0.9 thou/cu mm 01/16/2025 10:23 PM CDT [facility] EOSINOPHILS ABSOLUTE 0.3 <0.5 thou/cu mm 01/16/2025 10:23 PM CDT [facility] BASOPHILS ABSOLUTE 0.1 <0.3 thou/cu mm 01/16/2025 10:23 PM CDT [facility] Blood BLOOD SPECIMEN / Unknown Venipuncture / Unknown 01/16/2025 9:13 PM CDT 01/16/2025 9:19 PM CDT Bjorn Gresham DO HEMATOLOGY Final Result Performing Organization Address [facility] Co de Phone Number [facility] [address] [place] [address], [place] * (ABNORMAL) Protime - INR (01/16/2025 9:13 PM CDT) INR 1.3(H) <1.3 01/16/2025 9:36 PM CDT [facility] PROTIME 15.5(H) 10.6 - 12.4 sec 01/16/2025 9:36 PM CDT [facility] Blood BLOOD SPECIMEN / Unknown Venipuncture / Unknown 01/16/2025 9:13 PM CDT 01/16/2025 9:19 PM CDT Narrative [facility] - 01/16/2025 9:36 PM CDT Therapeutic Range 2.0-3.0 for most anticoagulated patients 2.5-3.5 or 4.0 for high risk patients The INR is only used for patients on stable oral anticoagulant therapy. It makes no significant contribution to the diagnosis or treatment of patients whose Protime is prolonged for other reasons. INR results are increased when heparin levels exceed 1.0 U/mL, which corresponds to an aPTT >125 seconds if the patient is on UFH. Bjorn Gresham DO HEMATOLOGY Final Result Performing Organization Address [facility] Co de Phone Number [facility] [address] [place] [phone], [place] * (ABNORMAL) Hepatic Function Panel (01/16/2025 9:13 PM CDT) ALBUMIN 3.3(L) 4.0 - 4.9 g/dL 01/16/2025 9:48 PM CDT [facility] PROTEIN,TOTAL 5.0(L) 6.0 - 8.0 g/dL 01/16/2025 9:48 PM CDT [facility] BILIRUBIN,TOTAL 0.5 0.0 - 1.2 mg/dL 01/16/2025 9:48 PM CDT [facility] LABORATORY BILIRUBIN,DIRECT 0.2 0.0 - 0.2 mg/dL 01/16/2025 9:48 PM CDT [facility] TRAL LABORATORY BILIRUBIN,INDIRE CT 0.3 0.2 - 0.8 mg/dL 01/16/2025 9:48 PM CDT [facility] TRAL LABORATORY ALK PHOSPHATASE 70 35 - 104 IU/L 01/16/2025 9:48 PM [facility] ALT (SGPT) 15 10 - 35 IU/L 01/16/2025 9:48 PM CDT [facility] TRAL LABORATORY AST (SGOT) 22 10 - 35 IU/L 01/16/2025 9:48 PM CDT [facility] Blood BLOOD SPECIMEN / Unknown Venipuncture / Unknown 01/16/2025 9:13 PM CDT 01/16/2025 9:19 PM CDT us Bjorn Gresham DO CHEMISTRY Final Result [facility] LABORATORY [address] [place] [address], [place] from Last 3 Months Insurance MEDICARE PART A HB ONLY [employer] HP Advance Directives * Full Code (Latest Code Status on File) Date Activated Date Inactivated Comments 01/16/2025 8:18 PM Question Answer Comments Code Status Discussion: Reviewed Preferences * Full Code Date Activated Date Inactivated Comments 07/17/2014 2:13 PM 07/18/2014 2:28 AM * Full Code Date Activated Date Inactivated Comments 07/09/2014 3:19 PM 07/13/2014 1:27 PM * Full Code Date Activated Date Inactivated Comments 06/29/2014 3:34 AM 07/09/2014 3:19 PM Care Teams Electric Cell Tender Relationship Specialty Start Date End Date Becca Troy MD PCP - General Family Practice 07/02/14
--- OUTSIDE RECORDS SUMMARY | 2025-01-17 18:08 | XMS_ITS | Encounter Summary ---
Author Organization [facility] Address [address] [address] Care Team Providers Care Embedded Linux Engineer Name Role Phone Becca Troy MD Primary Care Provider [phone] Encounter Details Date Type Department Care Team [...] on filedocumented in this encounter Care Teams Embedded Linux Engineer Relationship Specialty Start Date End Date Becca Troy MD [address] [place] [address] PCP - General 07/07/05 documented as of this encounter
--- OUTSIDE RECORDS SUMMARY | 2025-01-17 18:09 | XMS_ITS | Encounter Summary ---
[facility] Address [address] [address] Care Team Providers Care Licensed Real Estate Broker Name Role Phone Becca Troy MD Primary Care Provider [phone] Encounter Details Date Type Department Care Team (Latest Contact Info) Description 01/16/2025 Orders Only HIM DEPARTMENT ProviderMayra [place] [address] Social History Tobacco Use Types Packs/Day Years [...] Name Priority Date/Time Associated Diagnosis Comments CT 01/16/2025 documented in this encounter Results * CT (01/16/2025) Anatomical Region Laterality Modality Other us Interface Provider DUMMY/OTHER/AR Final Resu lt documented in this encounter Visit Diagnoses Not on filedocumented in this encounter Care Teams Licensed Real Estate Broker Relationship Specialty Start Date End Date Becca Troy MD [address] [place] [address] PCP - General 07/07/05 documented as of this encounter
--- OUTSIDE RECORDS SUMMARY | 2025-01-17 18:09 | XMS_ITS | Encounter Summary ---
Author Organization [facility] Address [address] [address] Care Team Providers Care Cream Gatherer Name Role Phone Becca Troy MD Primary Care Provider [phone] Encounter Details Date Type Department Care Team (Latest Contact Info) Description 01/14/2025 Orders Only HIM DEPARTMENT ProviderMayra [place] [address] Social History Tobacco Use Types Packs/Day Years [...] on filedocumented in this encounter Care Teams Cream Gatherer Relationship Specialty Start Date End Date Becca Troy MD [address] [place] [address] PCP - General 07/07/05 documented as of this encounter
--- OUTSIDE RECORDS SUMMARY | 2025-01-17 18:09 | XMS_ITS | Encounter Summary ---
Author Organization [facility] Address [address] [address] Care Team Providers Care Retail Sales Teammate Name Role Phone Becca Troy MD Primary Care Provider [phone] Encounter Details Date Type Department Care Team (Latest Contact Info) Description 03/16/2000 Orders Only Birdie Rosen, FERRYBOAT TICKET TAKER, NEW ACCOUNTS CLERK [address] [address] Social History Tobacco Use Types Packs/Day Years [...] on filedocumented in this encounter Care Teams Retail Sales Teammate Relationship Specialty Start Date End Date Becca Troy MD [address] [place] [address] PCP - General 07/07/05 documented as of this encounter
--- OUTSIDE RECORDS SUMMARY | 2025-01-17 18:09 | XMS_ITS | Encounter Summary ---
Author Organization [facility] Address [address] [address] Care Team Providers Care Echocardiography Radiology Technologist Name Role Phone Becca Troy MD Primary Care Provider [phone] Encounter Details Date Type Department Care Team [...] on filedocumented in this encounter Care Teams Echocardiography Radiology Technologist Relationship Specialty Start Date End Date Becca Troy MD [address] [place] [address] PCP - General 07/07/05 documented as of this encounter
--- OUTSIDE RECORDS SUMMARY | 2025-01-17 18:09 | XMS_ITS | Encounter Summary ---
Author Organization [facility] Address [address] [address] Care Team Providers Care Parts Counter Specialist Name Role Phone Becca Troy MD Primary Care Provider [phone] Encounter Details Date Type Department Care Team (Latest Contact Info) Description 01/16/2025 Orders Only HIM DEPARTMENT ProviderMayra [place] [address] Social History Tobacco Use Types Packs/Day Years [...] Name Priority Date/Time Associated Diagnosis Comments IMAGING 01/16/2025 documented in this encounter Results * IMAGING (01/16/2025) Anatomical Region Laterality Modality Other us Interface Provider DUMMY/OTHER/AR Final Resu lt documented in this encounter Visit Diagnoses Not on filedocumented in this encounter Care Teams Parts Counter Specialist Relationship Specialty Start Date End Date Becca Troy MD [address] [place] [address] PCP - General 07/07/05 documented as of this encounter
--- OUTSIDE RECORDS SUMMARY | 2025-01-17 18:09 | XMS_ITS | Encounter Summary ---
Author Organization [facility] Address [address] [place] [address] Care Team Providers Care Sack Cleaner Name Role Phone Becca Troy MD Primary Care Provider [phone] Encounter Details Date Type Department Care Team [...] on filedocumented in this encounter Care Teams Sack Cleaner Relationship Specialty Start Date End Date Becca Troy MD [address] [place] [address] PCP - General 07/07/05 documented as of this encounter
--- OUTSIDE RECORDS SUMMARY | 2025-01-17 18:09 | XMS_ITS | Encounter Summary ---
Author Organization [facility] Address [address] [address] Care Team Providers Care Applications Support Engineer Name Role Phone Becca Troy MD Primary Care Provider [phone] Encounter Details Date Type Department Care Team (Latest Contact Info) Description 12/30/1999 [place] [address] [place], [place] [id number] Social History Tobacco Use Types Packs/Day Years [...] on filedocumented in this encounter Care Teams Applications Support Engineer Relationship Specialty Start Date End Date Becca Troy MD [address] [place] [address] PCP - General 07/07/05 documented as of this encounter
--- OUTSIDE RECORDS SUMMARY | 2025-01-17 18:09 | XMS_ITS | Encounter Summary ---
Author Organization [facility] Address [address], [place] [address] Care Team Providers Care Dean Of Graduate Studies Name Role Phone Becca Troy MD Primary Care Provider [phone] Encounter Details Date Type Department Care Team [...] on filedocumented in this encounter Care Teams Dean Of Graduate Studies Relationship Specialty Start Date End Date Becca Troy MD [address] [place] [address] PCP - General 07/07/05 documented as of this encounter
--- OUTSIDE RECORDS SUMMARY | 2025-01-17 18:09 | XMS_ITS | Encounter Summary ---
Author Organization [facility] Address [address], [place] [address] Care Team Providers Care Mediation Commissioner Name Role Phone Becca Troy MD Primary Care Provider [phone] Encounter Details Date Type Department Care Team [...] on filedocumented in this encounter Care Teams Mediation Commissioner Relationship Specialty Start Date End Date Becca Troy MD [address] [place] [address] PCP - General 07/07/05 documented as of this encounter
--- OUTSIDE RECORDS SUMMARY | 2025-01-17 18:09 | XMS_ITS | Encounter Summary ---
Author Organization [facility] Address [address], [place] [address] Care Team Providers Care Scroll Shear Operator Name Role Phone Becca Troy MD Primary Care Provider [phone] Encounter Details Date Type Department Care Team (Latest Contact Info) Description 01/14/2025 Orders Only HIM DEPARTMENT ProviderMayra [place] [address] Social History Tobacco Use Types Packs/Day Years [...] on filedocumented in this encounter Care Teams Scroll Shear Operator Relationship Specialty Start Date End Date Becca Troy MD [address] [place] [address] PCP - General 07/07/05 documented as of this encounter
--- OUTSIDE RECORDS SUMMARY | 2025-01-17 18:09 | XMS_ITS | Encounter Summary ---
Author Organization [facility] Address [address], [place] [address] Care Team Providers Care Drag Out Man Name Role Phone Becca Troy MD Primary Care Provider [phone] Encounter Details Date Type Department Care Team (Late st Contact Info) Description 01/14/2025 Partner ED HIM DEPARTMENT Provider, [place] [address] [facility] 01/14/2025 Social History Tobacco Use Types Packs/Day Years [...] on filedocumented in this encounter Care Teams Drag Out Man Relationship Specialty Start Date End Date Becca Troy MD [address] [place] [address] PCP - General 07/07/05 documented as of this encounter
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
--- OUTSIDE RECORDS SUMMARY | 2025-01-18 00:18 | XMS_ITS | Encounter Summary ---
Author Organization [facility] Address [address] [place] [address] Care Team Providers Care Slot Key Person Name Role Phone Becca Troy MD Primary Care Provider [phone] Encounter Details Date Type Department Care Team [...] on filedocumented in this encounter Care Teams Slot Key Person Relationship Specialty Start Date End Date Becca Troy MD [address] [place] [address] PCP - General 07/07/05 documented as of this encounter
--- OUTSIDE RECORDS SUMMARY | 2025-01-18 00:18 | XMS_ITS | Encounter Summary ---
Author Organization [facility] Address [address] [address] Care Team Providers Care Ic Designer Standard Cells Name Role Phone Becca Troy MD Primary Care Provider [phone] Encounter Details Date Type Department Care Team [...] on filedocumented in this encounter Care Teams Ic Designer Standard Cells Relationship Specialty Start Date End Date Becca Troy MD [address] [place] [address] PCP - General 07/07/05 documented as of this encounter
--- OUTSIDE RECORDS SUMMARY | 2025-01-18 00:18 | XMS_ITS | Encounter Summary ---
Author Organization [facility] Address [address] [address] Care Team Providers Care Animal Cop Name Role Phone Becca Troy MD Primary Care Provider [phone] Encounter Details Date Type Department Care Team [...] on filedocumented in this encounter Care Teams Animal Cop Relationship Specialty Start Date End Date Becca Troy MD [address] [place] [address] PCP - General 07/07/05 documented as of this encounter
--- OUTSIDE RECORDS SUMMARY | 2025-01-18 00:18 | XMS_ITS | Encounter Summary ---
Author Organization [facility] Address [address], [place] [address] Care Team Providers Care Incident Response Analyst Name Role Phone Becca Troy MD Primary Care Provider [phone] Encounter Details Date Type Department Care Team [...] on filedocumented in this encounter Care Teams Incident Response Analyst Relationship Specialty Start Date End Date Becca Troy MD [address] [place] [address] PCP - General 07/07/05 documented as of this encounter
--- OUTSIDE RECORDS SUMMARY | 2025-01-18 00:18 | XMS_ITS | Encounter Summary ---
Author Organization [facility] Address [address] [address] Care Team Providers Care Behavioral Scientist Name Role Phone Becca Troy MD Primary Care Provider [phone] Encounter Details Date Type Department Care Team [...] on filedocumented in this encounter Care Teams Behavioral Scientist Relationship Specialty Start Date End Date Becca Troy MD [address] [place] [address] PCP - General 07/07/05 documented as of this encounter
--- OUTSIDE RECORDS SUMMARY | 2025-01-18 00:18 | XMS_ITS | Encounter Summary ---
Author Organization [facility] Address [address] [place] [address] Care Team Providers Care Rib Chopper Name Role Phone Becca Troy MD Primary Care Provider [phone] Encounter Details Date Type Department Care Team (Late st Contact Info) Description 06/21/1996 Orders Only [facility] Genna Mireles MD [address] [place], [place] [address] Social History Tobacco Use Types Packs/Day Years [...] on filedocumented in this encounter Care Teams Rib Chopper Relationship Specialty Start Date End Date Becca Troy MD [address] [place] [address] PCP - General 07/07/05 documented as of this encounter
--- OUTSIDE RECORDS SUMMARY | 2025-01-18 00:18 | XMS_ITS | Encounter Summary ---
Author Organization [facility] Address [address] [address] Care Team Providers Care Industrial Service Technician Name Role Phone Becca Troy MD Primary Care Provider [phone] Encounter Details Date Type Department Care Team (Latest Contact Info) Description 12/29/1995 Orders Only Tammy Card MD [address] [facility] [address] [place], [place] [address] Social History Tobacco Use Types Packs/Day Years [...] on filedocumented in this encounter Care Teams Industrial Service Technician Relationship Specialty Start Date End Date Becca Troy MD [address] [place] [address] PCP - General 07/07/05 documented as of this encounter
--- OUTSIDE RECORDS SUMMARY | 2025-01-18 00:19 | XMS_ITS | Encounter Summary ---
Author Organization [facility] Address [address] [address] Care Team Providers Care Senior Windows Administrator Name Role Phone Becca Troy MD Primary Care Provider [phone] Encounter Details Date Type Department Care Team [...] filedocumented in this encounter Care Teams Senior Windows Administrator Relationship Specialty Start Date End Date Becca Troy MD [address] [place] [address] PCP - General 07/07/05 documented as of this encounter
--- OUTSIDE RECORDS SUMMARY | 2025-01-18 00:19 | XMS_ITS | Encounter Summary ---
Author Organization [facility] Address [address] [place] [address] Care Team Providers Care Manager Quality Systems Name Role Phone Becca Troy MD Primary Care Provider [phone] Encounter Details Date Type Department Care Team (Late st Contact Info) Description 04/07/2004 Consent for Procedure/Treatmen t External to External, [place] [address] KIDNEY DONOR CONSENT FORM Social History Tobacco [...] External, Provider - 04/07/2004 12:00 AM CDT RITY SUPPORT ANALYST documented in this encounter Plan of Treatment Not on file documented as of this encounter Visit Diagnoses Not on filedocumented in this encounter Care Teams Manager Quality Systems Relationship Specialty Start Date End Date Becca Troy MD [address] [place] [address] PCP - General 07/07/05 documented as of this encounter
--- OUTSIDE RECORDS SUMMARY | 2025-01-18 00:19 | XMS_ITS | Encounter Summary ---
Author Organization [facility] Address [address], [place] [address] Care Team Providers Care Decorating Instructor Name Role Phone Becca Troy MD Primary Care Provider [phone] Encounter Details Date Type Department Care Team (Latest Contact Info) Description 03/21/1996 Orders Only Julissa Beverly, PLANER OFFBEARER, DISTRIBUTION SUPERVISOR Social History Tobacco Use Types Packs/Day Years [...] on filedocumented in this encounter Care Teams Decorating Instructor Relationship Specialty Start Date End Date Becca Troy MD [address] [place] [address] PCP - General 07/07/05 documented as of this encounter
--- OUTSIDE RECORDS SUMMARY | 2025-01-18 00:19 | XMS_ITS | Encounter Summary ---
Author Organization [facility] Address [address], [place] [address] Care Team Providers Care Gear Cutting Machine Operator Name Role Phone Becca Troy MD Primary Care Provider [phone] Encounter Details Date Type Department Care Team [...] on filedocumented in this encounter Care Teams Gear Cutting Machine Operator Relationship Specialty Start Date End Date Becca Troy MD [address] [place] [address] PCP - General 07/07/05 documented as of this encounter
--- OUTSIDE RECORDS SUMMARY | 2025-01-18 00:19 | XMS_ITS | Encounter Summary ---
Author Organization [facility] Address [address], [place] [address] Care Team Providers Care Momd Teacher Name Role Phone Becca Troy MD Primary Care Provider [phone] Encounter Details Date Type Department Care Team [...] on filedocumented in this encounter Care Teams Momd Teacher Relationship Specialty Start Date End Date Becca Troy MD [address] [place] [address] PCP - General 07/07/05 documented as of this encounter
--- OUTSIDE RECORDS SUMMARY | 2025-01-18 00:19 | XMS_ITS | Encounter Summary ---
Author Organization [facility] Address [address], [place] [address] Care Team Providers Care Warehouse Foreman Name Role Phone Becca Troy MD Primary Care Provider [phone] Encounter Details Date Type Department Care Team [...] on filedocumented in this encounter Care Teams Warehouse Foreman Relationship Specialty Start Date End Date Becca Troy MD [address] [place] [address] PCP - General 07/07/05 documented as of this encounter
--- OUTSIDE RECORDS SUMMARY | 2025-01-18 00:19 | XMS_ITS | Encounter Summary ---
Author Organization [facility] Address [address], [place] [address] Care Team Providers Care Clerical Investigator Name Role Phone Becca Troy MD Primary [...] on filedocumented in this encounter Care Teams Clerical Investigator Relationship Specialty Start Date End Date Becca Troy MD [address] [place] [address] PCP - General 07/07/05 documented as of this encounter
--- OUTSIDE RECORDS SUMMARY | 2025-01-18 00:19 | XMS_ITS | Encounter Summary ---
Author Organization [facility] Address [address] [place] [address] Care Team Providers Care Well Digger Name Role Phone Becca Troy MD Primary Care Provider [phone] Encounter Details Date Type Department Care Team (Latest Contact Info) Description 08/30/2003 Hospital [facility] Abdi Rios MD [address] [place] [id number] Social History Tobacco Use Types Packs/Day Years [...] * Abdi Rios - 08/30/2003 12:00 AM STRETCH PRESS OPERATOR DATE OF SURGERY: 08/30/2003 STAFF SURGEON: Abdi [...] OPERATION: Left heart catheterization, left ventriculogram, selective ani[place] vessel diagnostic coronary angiography. INDICATIONS: The patient is a 52-year-old female, cigarette smoker who has experienced exertional dyspnea. To assess this, she recently underwent an exercise treadmill stress echocardiogram which was technically difficult, but suggested possible mid anterior and anteroapical inducible ischemia and adequate heart rate. She was seen in consultation by Dr. Gennaro Bella of the [facility] cardiology clinic who recommend invasive evaluation. The patient has been admitted to the outpatient care unit at [place], [place] today for performance of the above [...] steel guidewire and placement of a 4 [place] vascular sheath. Diagnostic aniak vessel coronary angiography was then performed using 4 [place] diagnostic catheters (JL 4, JR 4) and biplane imaging with nonionic contrast. A formal left heart catheterization was performed using a 145 degree angulated pigtail catheter. The same pigtail catheter was utilized for performance of a biplane left ventriculogram with imaging in a 30 degrees PICHARDO and 60 degrees [place] projections using 45 cc of nonionic contrast. All contrast was administered utilizing an ipadio power injector device. The patient tolerated the [...] Rios MD Transcribed: 08/30/2003 10:35:54 Doc #: [id number] cc: Víctor Browne MD Cardiac Catheterization Lab [...] 08/30/2003 OUTPATIENT OPERATIVE REPORT [facility] [address] [id number] Page 1 Patient: [facility]ESS[facility]URDICK [id number] Date of : 1950 Visit Date: 08/30/2003 OUTPATIENT OPERATIVE REPORT TCH PRESS OPERATOR documented in this encounter Plan of Treatment Not on file documented as of this encounter Visit Diagnoses Not on filedocumented in this encounter Care Teams Well Digger Relationship Specialty Start Date End Date Becca Troy MD [address] [place] [address] PCP - General 07/07/05 documented as of this encounter
--- OUTSIDE RECORDS SUMMARY | 2025-01-18 00:19 | XMS_ITS | Encounter Summary ---
Author Organization [facility] Address [address] [address] Care Team Providers Care Spinning Bath Patroller Name Role Phone Becca Troy MD Primary Care Provider [phone] Encounter Details Date Type Department Care Team [...] on filedocumented in this encounter Care Teams Spinning Bath Patroller Relationship Specialty Start Date End Date Becca Troy MD [address] [place] [id number] PCP - General 07/07/05 documented as of this encounter
--- OUTSIDE RECORDS SUMMARY | 2025-01-18 00:19 | XMS_ITS | Encounter Summary ---
Author Organization [facility] Address [address], [place] [address] Care Team Providers Care Associate Artistic Director Name Role Phone Becca Troy MD Primary Care Provider [phone] Encounter Details Date Type Department Care Team [...] on filedocumented in this encounter Care Teams Associate Artistic Director Relationship Specialty Start Date End Date Becca Troy MD [address] [place] [address] PCP - General 07/07/05 documented as of this encounter
--- OUTSIDE RECORDS SUMMARY | 2025-01-18 00:19 | XMS_ITS | Encounter Summary ---
Author Organization [facility] Address [address], [place] [address] Care Team Providers Care Auto Crane Driver Name Role Phone Becca Troy MD Primary Care Provider [phone] Encounter Details Date Type Department Care Team [...] on filedocumented in this encounter Care Teams Auto Crane Driver Relationship Specialty Start Date End Date Becca Troy MD [address] [place] [address] PCP - General 07/07/05 documented as of this encounter
--- OUTSIDE RECORDS SUMMARY | 2025-01-18 00:19 | XMS_ITS | Encounter Summary ---
Author Organization [facility] Address [address], [place] [address] Care Team Providers Care Hostess Cashier Name Role Phone Becca Troy MD Primary Care Provider [phone] Encounter Details Date Type Department Care Team [...] on filedocumented in this encounter Care Teams Hostess Cashier Relationship Specialty Start Date End Date Becca Troy MD [address] [place] [address] PCP - General 07/07/05 documented as of this encounter
--- OUTSIDE RECORDS SUMMARY | 2025-01-18 00:19 | XMS_ITS | Encounter Summary ---
Author Organization [facility] Address [address], [place] [address] Care Team Providers Care Sales Representative Facility Services Name Role Phone Becca Troy MD Primary Care Provider [phone] Encounter Details Date Type Department Care Team [...] on filedocumented in this encounter Care Teams Sales Representative Facility Services Relationship Specialty Start Date End Date Becca Troy MD [address] [place] [address] PCP - General 07/07/05 documented as of this encounter
--- OUTSIDE RECORDS SUMMARY | 2025-01-18 00:20 | XMS_ITS | Encounter Summary ---
Author Organization [facility] Address [address] [address] Care Team Providers Care Wood Gang Sawyer Name Role Phone Becca Troy MD Primary Care Provider [phone] Encounter Details Date Type Department Care Team [...] on filedocumented in this encounter Care Teams Wood Gang Sawyer Relationship Specialty Start Date End Date Becca Troy MD [address] [place] [address] PCP - General 07/07/05 documented as of this encounter
--- OUTSIDE RECORDS SUMMARY | 2025-01-18 00:20 | XMS_ITS | Encounter Summary ---
Author Organization [facility] Address [address], [place] [address] Care Team Providers Care Rn Testing Name Role Phone Becca Troy MD Primary Care Provider [phone] Encounter Details Date Type Department Care Team [...] filedocumented in this encounter Care Teams Rn Testing Relationship Specialty Start Date End Date Becca Troy MD [address] [place] [address] PCP - General 07/07/05 documented as of this encounter
--- OUTSIDE RECORDS SUMMARY | 2025-01-18 00:20 | XMS_ITS | Encounter Summary ---
Author Organization [facility] Address [address], [place] [address] Care Team Providers Care Obstetrical Anesthesiologist Name Role Phone Becca Troy MD Primary Care Provider [phone] Encounter Details Date Type Department Care Team [...] on filedocumented in this encounter Care Teams Obstetrical Anesthesiologist Relationship Specialty Start Date End Date Becca Troy MD [address] [place] [address] PCP - General 07/07/05 documented as of this encounter
--- OUTSIDE RECORDS SUMMARY | 2025-01-18 00:20 | XMS_ITS | Encounter Summary ---
Author Organization [facility] Address [address], [place] [address] Care Team Providers Care Residential Gas Heat Technician Name Role Phone Becca Troy MD Primary Care Provider [phone] Encounter Details Date Type Department Care Team [...] on filedocumented in this encounter Care Teams Residential Gas Heat Technician Relationship Specialty Start Date End Date Becca Troy MD [address] [place] [address] PCP - General 07/07/05 documented as of this encounter
--- OUTSIDE RECORDS SUMMARY | 2025-01-18 00:20 | XMS_ITS | Clinical Summary ---
Author Organization [employer] [facility] Address [address] [place] [address] Care Team Providers Care Sr. Manager Name Role Phone Becca Troy MD Primary Care Provider [phone] Allergies Active Allergy Reactions Criticality Noted Date [...] furoate-vilante roL (Breo Ellipta) 200-25 mcg/dose inhalation engine hostler Inhale 1 Puff by mouth once daily. [...] 8:15 PM CDT - Present Hospital Encounter [facility] [address] [place] [address] Bjorn Gresham MD Williams, David Michael, DO [...] on file Legal Sex Female 7:13 AM ARTERIAL EMBALMER Gender Identity Not on file Sexual Orientation Not on file Obstetrics History Last Filed Vital Signs Vital Sign Reading Time Taken Comments Blood Pressure 113/49 01/17/2025 11:00 PM CDT Pulse 114 01/17/2025 11:00 PM CDT Temperature 37.2 C (98.9 F) 01/17/2025 10:00 PM CDT Respiratory Rate 16 01/18/2025 12:0 7 AM CDT Oxygen Saturation 94% 01/18/2025 12: 07 AM CDT Inhaled Oxygen Concentration - - [...] this topic Medical Devices Implanted Type Area Car Wash Manager Device Identifier Shelf Expiration Date Model / Serial / Lot Stent Contour [id number] - [id number] Implanted:Qty: 1 on 06/29/2014 by Tesfaye Martinez MD at [facility] Left: Ureter [facility] 04/29/2017 [id number] / / [id number] Stent Uret [id number] W/Tether - [id number] Implanted:Qty: 1 on 07/17/2014 at [facility] Left: Ureter [employer] [id number] / / [id number] Procedures * The patient is currently admitted. The information in this section might not be complete until the patient is discharged. Procedure Name Priority Date/Time Associated Diagnosis Comments GLUCOSE METER Timed 01/17/2025 8:20 PM CDT SCAN CORRESP-LABORATORY RESULTS 01/17/2025 11:01 AM CDT [...] CDT from Last 3 Months Results * (ABNORMAL) GLUCOSE METER (01/17/2025 8:20 PM CDT) Only the most recent of3 resultswithin the time period is included. [facility] GLUCOSE METER 138(H) 65 - 100 mg/dL 01/17/2025 8:25 PM CDT [facility] Blood BLOOD SPECIMEN / Unknown 01/17/2025 8:20 PM CDT 01/17/2025 8:25 PM CDT Ketan Stafford MD CHEMISTRY Final Re sult [facility] [address], [place] [address], [place] * SCAN CORRESP-LABORATORY RESULTS (01/17/2025 11:01 AM [...] - 60 umol/L 01/17/2025 11:20 AM CDT [facility] Blood BLOOD SPECIMEN / Unknown Non-Lab Venipuncture / Unknown 01/17/2025 10:47 AM CDT 01/17/2025 10:59 AM CDT Narrative [facility] - 01/17/2025 11:20 AM CDT 1. Sulfasalazine and its metabolite Sulfapyridine at therapeutic concentrations may lead to falsely low results. 2. Temozolomide and its metabolite MTIC may lead to falsely elevated results, and its metabolite AIC may lead to falsely low results. Alejandra Holland DO CHEMISTRY Final Result [facility] [address] [place] [address], [place] * XR CHEST 1 VIEW PORTABLE [...] russ. Dictated by Gennaro Cooper MD @ Dhruv 2024 10:39AM (Electronically Signed) [email or web address] Narrative 01/17/2025 10:39 AM CDT For Patients: [...] @ Jan 17 2025 10:39AM (Electronically Signed) [email or web address] Kermit Santillan MD GENERAL IMAGING Final Result * SCAN-CARDIAC STRIP (01/17/2025 7:57 AM CDT) us Scanner OTHER Final Result * (ABNORMAL) CBC W PLT NO DIFF (01/17/2025 4:50 AM CDT) WHITE BLOOD COUNT 14.5(H) 4.5 - 11.0 thou/cu mm 01/17/2025 5:24 AM CDT [facility] RED BLOOD COUNT 3.51(L) 4.00 - 5.20 mil/cu mm 01/17/2025 5:24 AM CDT [facility] HEMOGLOBIN 9.1(L) 12.0 - 16.0 g/dL 01/17/2025 5:24 AM CDT [facility] HEMATOCRIT 29.0(L) 33.0 - 51.0 % 01/17/2025 5:24 AM CDT [facility] MCV 83 80 - 100 fL 01/17/2025 5:24 AM CDT [facility] MCH 25.9(L) 26.0 - 34.0 pg 01/17/2025 5:24 AM CDT [facility] MCHC 31.4(L) 32.0 - 36.0 g/dL 01/17/2025 5:24 AM CDT [facility] RDW 18.5(H) 11.5 - 15.5 % 01/17/2025 5:24 AM CDT [facility] PLATELET COUNT 170 140 - 440 thou/cu mm 01/17/2025 5:24 AM CDT [facility] MPV 01/17/2025 5:24 AM CDT [facility] Comment:Unable to be determi rajendra NRBC 0.0 % 01/17/2025 5:24 AM CDT [facility] ABS NRBC 0.0 thou /cu mm 01/17/2025 5:24 AM CDT [facility] Blood BLOOD SPECIMEN / Unknown Venipuncture / Unknown 01/17/2025 4:50 AM CDT 01/17/2025 5:11 AM CDT us Alejandra Holland DO HEMATOLOGY Final Result Performing Organization Address City/[facility]/ZIP Co de Phone Number [facility] [address] [place] [address], [place] * TRIGLYCERIDES propofol (01/17/2025 4:50 AM CDT) TRIGLYCERIDES 61 <150 mg/dL 01/17/2025 5:42 AM CDT [facility] PROVIDER ORDERED STATUS RANDOM 01/17/2025 5:42 AM CDT [facility] Blood BLOOD SPECIMEN / Unknown Venipuncture / Unknown 01/17/2025 4:50 AM CDT 01/17/2025 5:11 AM CDT us Bjorn Gresham DO CHEMISTRY Final Result Performing Organization Address [facility] Co de Phone Number [facility] [address] [place] [address], [place] * PHOSPHORUS (01/17/2025 4:50 AM CDT) Only the most recent of2 resultswithin the time period is included. PHOSPHORUS 3.4 2.5 - 4.5 mg/dL 01/17/2025 5:42 AM CDT [facility] Blood BLOOD SPECIMEN / Unknown Venipuncture / Unknown 01/17/2025 4:50 AM CDT 01/17/2025 5:11 AM CDT Kodak Riggins MD CHEMISTRY Final Result Performing Organization Address City/[facility]/ZIP Co de Phone Number [facility] [address] [place] [address], [place] * MAGNESIUM (01/17/2025 4:50 AM CDT) Only the most recent of2 resultswithin the time period is included. MAGNESIUM 2.1 1.6 - 2.4 mg/dL 01/17/2025 5:42 AM CDT [facility] Blood BLOOD SPECIMEN / Unknown Venipuncture / Unknown 01/17/2025 4:50 AM CDT 01/17/2025 5:11 AM CDT Kodak Riggins MD CHEMISTRY Final Result Performing Organization Address [facility]/ZIP Co de Phone Number [facility] [address] [place] [address], [place] * CK TOTAL propofol (01/17/2025 4:50 AM CDT) Pathologist [facility] CK,TOTAL 29 26 - 192 IU/L 01/17/2025 5:42 AM CDT [facility] Blood BLOOD SPECIMEN / Unknown Venipuncture / Unknown 01/17/2025 4:50 AM CDT 01/17/2025 5:11 AM CDT us Bjorn Gresham DO CHEMISTRY Final Result Performing Organization Address [facility]/ZIP Co de Phone Number [facility] [address] [place] [address], [place] * (ABNORMAL) BASIC METABOLIC PANEL (01/17/2025 4:50 AM CDT) Only the most recent of2 resultswithin the time period is included. SODIUM 131(L) 136 - 145 mmol/L 01/17/2025 5:42 AM CDT [facility] POTASSIUM 4.5 3.5 - 5.1 mmol/L 01/17/2025 5:42 AM CDT [facility] CHLORIDE 99 98 - 107 mmol/L 01/17/2025 5:42 AM CDT [facility] CO2,TOTAL 21(L) 22 - 29 mmol/L 01/17/2025 5:42 AM CDT [facility] ANION GAP 11 5 - 18 01/17/2025 5:42 AM CDT [facility] GLUCOSE 99 70 - 99 mg/dL 01/17/2025 5:42 AM CDT [facility] CALCIUM 7.9(L) 8.8 - 10.4 mg/dL 01/17/2025 5:42 AM CDT [facility] Comment: Reference ranges for this test were updated on 06/05/2024 to reflect our healthy population more accurately. Reference range changes are not retroactively applied to results, but previous results using the same methodology can be interpreted in the context of the new reference range. BUN 16 8 - 23 mg/dL 01/17/2025 5:42 AM CDT [facility] CREATININE 0.78 0.50 - 0.90 mg/dL 01/17/2025 5:42 AM CDT [facility] BUN/CREAT RATIO 21(H) 10 - 20 5:42 AM CDT [facility] eGFR 79(L) >90 mL/min/1. 73m2 01/17/2025 5:42 AM CDT [facility] Comment:As of 2021, eG FR is calculated by the CKD-EPI creatinine equation without race adjustment. eGFR can be influenced by muscle mass, exercise, and diet. The reported eGFR is an estimation only and is only applicable if the renal function is stable. Blood BLOOD SPECIMEN / Unknown Venipuncture / Unknown 01/17/2025 4:50 AM CDT 01/17/2025 5:11 AM CDT Alejandra Holland DO CHEMISTRY Final Result [facility] [address] [place] [address], [place] * SCAN-CARDIAC STRIP (01/17/2025 3:03 AM CDT) us Scanner OTHER Final Result * SCAN-CARDIAC STRIP (01/17/2025 12:03 AM CDT) us Scanner OTHER Final Result * (ABNORMAL) CBC WITH AUTO DIFFERENTIAL (01/16/2025 9:13 PM CDT) WHITE BLOOD COUNT 11.6(H) 4.5 - 11.0 thou/cu mm 01/16/2025 10:24 PM CDT [facility] RED BLOOD COUNT 3.62(L) 4.00 - 5.20 mil/cu mm 01/16/2025 10:24 PM CDT [facility] HEMOGLOBIN 9.5(L) 12.0 - 16.0 g/dL 01/16/2025 10:24 PM CDT [facility] HEMATOCRIT 29.4(L) 33.0 - 51.0 % 01/16/2025 10:24 PM CDT [facility] MCV 81 80 - 100 fL 01/16/2025 10:24 PM CDT [facility] MCH 26.2 26.0 - 34.0 pg 01/16/2025 10:24 PM CDT [facility] MCHC 32.3 32.0 - 36.0 g/dL 01/16/2025 10:24 PM CDT [facility] RDW 18.4(H) 11.5 - 15.5 % 01/16/2025 10:24 PM CDT [facility] PLATELET COUNT 156 140 - 440 thou/cu mm 01/16/2025 10:24 PM CDT [facility] MPV 01/16/2025 10:24 PM CDT [facility] Comment:Unable to be determi rajendra NRBC 0.0 % 01/16/2025 10:24 PM CDT [facility] ABS NRBC 0.0 thou /cu mm 01/16/2025 10:24 PM CDT [facility] Blood BLOOD SPECIMEN / Unknown Venipuncture / Unknown 01/16/2025 9:13 PM CDT 01/16/2025 9:19 PM CDT Bjorn Gresham DO HEMATOLOGY Final Result [facility] [address] [place] [address], [place] * (ABNORMAL) RED CELL MORPHOLOGY (01/16/2025 9:13 PM CDT) ELLIPTOCYTES Moderate 01/16/2025 10:23 PM CDT [facility] TEARDROP CELLS Moderate 01/16/2025 10:23 PM CDT [facility] RBC COMMENT Present(A) RBC morphology appears normal, RBC morphology within normal limits for newborns. 01/16/2025 10:23 PM CDT [facility] LARGE PLATELETS Present 10:23 PM CDT [facility] Blood BLOOD SPECIMEN / Unknown Venipuncture / Unknown 01/16/2025 9:13 PM CDT 01/16/2025 9:19 PM CDT Bjorn Gresham DO HEMATOLOGY Final Result Performing Organization Address City/[facility]/ZIP Co de Phone Number [facility] [address] [place] [address], [place] * PLATELET ESTIMATE (01/16/2025 9:13 PM CDT) PLATELET ESTIMATE Adequate Adequate, No estimate 01/16/2025 10:23 PM CDT [facility] Blood BLOOD SPECIMEN / Unknown Venipuncture / Unknown 01/16/2025 9:13 PM CDT 01/16/2025 9:19 PM CDT Bjorn Gresham DO HEMATOLOGY Final Result Performing Organization Address City/[facility]/ZIP Co de Phone Number [facility] [address] [place] [address], [place] * TSH WITH REFLEX (01/16/2025 9:13 PM CDT) TSH 1.30 0.27 - 4.20 uIU/mL 01/17/2025 12:51 AM CDT [facility] Blood BLOOD SPECIMEN / Unknown Venipuncture / Unknown 01/16/2025 9:13 PM CDT 01/16/2025 9:[address] [facility] - 01/17/2025 12:51 AM CDT In Adults, TSH values between 5.00 and 10.00 uIU/ml do not necessarily indicate the presence of Hypothyroidism. Correlation with clinical findings such as presence of goiter and/or Thyroperoxidase (TPO) Antibody may be helpful. For more information please refer to JAMES 2004; 291: 228-238. Alejandra Holland DO CHEMISTRY Final Result [facility] [address] [place] [address], * (ABNORMAL) MANUAL DIFFERENTIAL (01/16/2025 9:13 PM CDT) % NEUTROPHILS 84.0 % 01/16/2025 10:23 PM CDT [facility] % LYMPHOCYTES 7.0 % 01/16/2025 10:23 PM CDT [facility] % MONOCYTES 5.0 % 01/16/2025 10:23 PM CDT [facility] % EOSINOPHILS 3.0 % 01/16/2025 10:23 PM CDT [facility] % BASOPHILS 1.0 % 01/16/2025 10:23 PM CDT [facility] NEUTROPHILS ABSOLUTE 9.7(H) 1.7 - 7.0 thou/cu mm 01/16/2025 10:23 PM CDT [facility] LYMPHOCYTES ABSOLUTE 0.8(L) 0.9 - 2.9 thou/cu mm 01/16/2025 10:23 PM CDT [facility] MONOCYTES ABSOLUTE 0.6 <0.9 thou/cu mm 01/16/2025 10:23 PM CDT [facility] EOSINOPHILS ABSOLUTE 0.3 <0.5 thou/cu mm 01/16/2025 10:23 PM CDT [facility] BASOPHILS ABSOLUTE 0.1 <0.3 thou/cu mm 01/16/2025 10:23 PM CDT [facility] Blood BLOOD SPECIMEN / Unknown Venipuncture / Unknown 01/16/2025 9:13 PM CDT 01/16/2025 9:19 PM CDT Bjorn Gresham DO HEMATOLOGY Final Result Performing Organization Address [facility] Co de Phone Number [facility] [address] [place] [address], [place] * (ABNORMAL) Protime - INR (01/16/2025 9:13 PM CDT) INR 1.3(H) <1.3 01/16/2025 9:36 PM CDT [facility] PROTIME 15.5(H) 10.6 - 12.4 sec 01/16/2025 9:36 PM CDT [facility] Blood BLOOD SPECIMEN / Unknown Venipuncture / Unknown 01/16/2025 9:13 PM CDT 01/16/2025 9:19 PM CDT Narrative [facility] - 01/16/2025 9:36 PM CDT Therapeutic Range [...] DO HEMATOLOGY Final Result Performing Organization Address City/[facility]/ZIP Co de Phone Number [facility] [address] [address], [place] * (ABNORMAL) Hepatic Function Panel (01/16/2025 9:13 PM CDT) ALBUMIN 3.3(L) 4.0 - 4.9 g/dL 01/16/2025 9:48 PM CDT [facility] PROTEIN,TOTAL 5.0(L) 6.0 - 8.0 g/dL 01/16/2025 9:48 PM CDT [facility] BILIRUBIN,TOTAL 0.5 0.0 - 1.2 mg/dL 01/16/2025 9:48 PM CDT [facility] BILIRUBIN,DIRECT 0.2 0.0 - 0.2 mg/dL 01/16/2025 9:48 PM CDT [facility] BILIRUBIN,INDIRE CT 0.3 0.2 - 0.8 mg/dL 01/16/2025 9:48 PM CDT [facility] ALK PHOSPHATASE 70 35 - 104 IU/L 01/16/2025 9:48 PM CDT [facility] ALT (SGPT) 15 10 - 35 IU/L 01/16/2025 9:48 PM CDT [facility] AST (SGOT) 22 10 - 35 IU/L 01/16/2025 9:48 PM CDT [facility] Blood BLOOD SPECIMEN / Unknown Venipuncture / Unknown 01/16/2025 9:13 PM CDT 01/16/2025 9:19 PM CDT us Bjorn Gresham DO CHEMISTRY Final Result [facility] [address] [place] [address], [place] from Last 3 Months Insurance MEDICARE [...] 3:34 AM 07/09/2014 3:19 PM Care Teams Sr. Manager Relationship Specialty Start Date End Date Becca Troy MD PCP - General Family Practice 07/02/14
--- OUTSIDE RECORDS SUMMARY | 2025-01-18 00:20 | XMS_ITS | Encounter Summary ---
Author Organization [facility] Address [address] [address] Care Team Providers Care Logistic Manager Name Role Phone Becca Troy MD [...] on filedocumented in this encounter Care Teams Logistic Manager Relationship Specialty Start Date End Date Becca Troy MD [address] [place] [address] PCP - General 07/07/05 documented as of this encounter
--- OUTSIDE RECORDS SUMMARY | 2025-01-18 00:20 | XMS_ITS | Encounter Summary ---
Author Organization [facility] Address [address] [address] Care Team Providers Care Day Light Relief Operator Name Role Phone Becca Troy MD Primary Care Provider [phone] Encounter Details Date Type Department Care Team [...] on filedocumented in this encounter Care Teams Day Light Relief Operator Relationship Specialty Start Date End Date Becca Troy MD [address] [place] [address] PCP - General 07/07/05 documented as of this encounter
--- OUTSIDE RECORDS SUMMARY | 2025-01-18 00:20 | XMS_ITS | Encounter Summary ---
Author Organization [facility] Address [address] [address] Care Team Providers Care Computer Systems Security Administrator Name Role Phone Becca Troy MD Primary Care Provider [phone] Encounter Details Date Type Department Care Team (Latest Contact Info) Description 01/09/1999 Orders Only Birdie Rosen, RESEARCH ANALYST, VICE PRESIDENT OF NURSING [address] [address] Social History Tobacco Use Types Packs/Day Years [...] on filedocumented in this encounter Care Teams Computer Systems Security Administrator Relationship Specialty Start Date End Date Becca rToy MD [address] [place] [address] PCP - General 07/07/05 documented as of this encounter
--- OUTSIDE RECORDS SUMMARY | 2025-01-18 00:20 | XMS_ITS | Encounter Summary ---
Author Organization [facility] Address [address] [address] Care Team Providers Care Collaborative Physician Name Role Phone Becca Troy MD Primary Care Provider [phone] Encounter Details Date Type Department Care Team (Latest Contact Info) Description 07/23/1998 Orders Only Tammy Card MD [address] [facility] [address] [place], [place] [address] Social History Tobacco Use Types Packs/Day Years [...] on filedocumented in this encounter Care Teams Collaborative Physician Relationship Specialty Start Date End Date Becca Troy MD [address] [place] [address] PCP - General 07/07/05 documented as of this encounter
--- OUTSIDE RECORDS SUMMARY | 2025-01-18 00:20 | XMS_ITS | Encounter Summary ---
Author Organization [facility] Address [address] [address] Care Team Providers Care Roll Tube Setter Name Role Phone Becca Troy MD Primary Care Provider [phone] Encounter Details Date Type Department Care Team [...] on filedocumented in this encounter Care Teams Roll Tube Setter Relationship Specialty Start Date End Date Becca Troy MD [address] [place] [address] PCP - General 07/07/05 documented as of this encounter
--- OUTSIDE RECORDS SUMMARY | 2025-01-18 00:20 | XMS_ITS | Encounter Summary ---
Author Organization [facility] Address [address], [place] [address] Care Team Providers Care Meteorologist Liaison Name Role Phone Becca Troy MD Primary Care Provider [phone] Encounter Details Date Type Department Care Team [...] on filedocumented in this encounter Care Teams Meteorologist Liaison Relationship Specialty Start Date End Date Becca Troy MD [address] [place] [address] PCP - General 07/07/05 documented as of this encounter
--- OUTSIDE RECORDS SUMMARY | 2025-01-18 00:20 | XMS_ITS | Encounter Summary ---
Author Organization [facility] Address [address], [place] [address] Care Team Providers Care Scow Derrick Operator Name Role Phone Becca Troy MD Primary Care Provider [phone] Encounter Details Date Type Department Care Team [...] on filedocumented in this encounter Care Teams Scow Derrick Operator Relationship Specialty Start Date End Date Becca Troy MD [address] [place] [address] PCP - General 07/07/05 documented as of this encounter
--- OUTSIDE RECORDS SUMMARY | 2025-01-18 00:21 | XMS_ITS | Encounter Summary ---
Author Organization [facility] Address [address] [address] Care Team Providers Care Zipper Trimmer Name Role Phone Becca Troy MD Primary Care Provider [phone] Encounter Details Date Type Department Care Team [...] on filedocumented in this encounter Care Teams Zipper Trimmer Relationship Specialty Start Date End Date Becca Troy MD [address] [place] [address] PCP - General 07/07/05 documented as of this encounter
--- OUTSIDE RECORDS SUMMARY | 2025-01-18 00:21 | XMS_ITS | Encounter Summary ---
Author [facility] Address [address] [place] [address] Care Team Providers Care Turning Lathe Tender Name Role Phone Becca Troy MD Primary Care Provider [phone] Encounter Details Date Type Department Care Team [...] on filedocumented in this encounter Care Teams Turning Lathe Tender Relationship Specialty Start Date End Date Becca Troy MD [address] [place] [address] PCP - General 07/07/05 documented as of this encounter
--- OUTSIDE RECORDS SUMMARY | 2025-01-18 00:21 | XMS_ITS | Encounter Summary ---
Author Organization [facility] Address [address] [place] [address] Care Team Providers Care Casino Host Name Role Phone Becca Troy MD Primary Care Provider [phone] Encounter Details Date Type Department Care Team (Late st Contact Info) Description 07/09/2014 Scanned History External to Transferred Record, Provider ADDY CURZ Social History Tobacco Use Types Packs/Day Years [...] on filedocumented in this encounter Care Teams Casino Host Relationship Specialty Start Date End Date Becca Troy MD [address] [place] [address] PCP - General 07/07/05 documented as of this encounter
--- OUTSIDE RECORDS SUMMARY | 2025-01-18 00:22 | XMS_ITS | Encounter Summary ---
Author Organization [facility] Address [address] [address] Care Team Providers Care Spanish Lecturer Name Role Phone Becca Troy MD Primary Care Provider [phone] Encounter Details Date Type Department Care Team (Late st Contact Info) Description 11/30/2018 Correspondence [facility] [address] [place] [address] Becca Troy MD [address] [facility] [place] [address] HISTORY PHYSICAL LAB RESULTS Social History [...] on filedocumented in this encounter Care Teams Spanish Lecturer Relationship Specialty Start Date End Date Becca Troy MD [address] [place] [address] PCP - General 07/07/05 documented as of this encounter
--- OUTSIDE RECORDS SUMMARY | 2025-01-18 00:22 | XMS_ITS | Encounter Summary ---
Author Organization [facility] Address [address] [address] Care Team Providers Care Technical System Analyst Name Role Phone Becca Troy MD Primary Care Provider [phone] Encounter Details Date Type Department Care Team [...] on filedocumented in this encounter Care Teams Technical System Analyst Relationship Specialty Start Date End Date Becca Troy MD [address] [place] [address] PCP - General 07/07/05 documented as of this encounter
--- OUTSIDE RECORDS SUMMARY | 2025-01-18 00:22 | XMS_ITS | Encounter Summary ---
Author Organization [facility] Address [address], [place] [address] Care Team Providers Care Ged Instructor Name Role Phone Becca Troy MD Primary Care Provider [phone] Encounter Details Date Type Department Care Team (Latest Contact Info) Description 01/14/2025 Orders Only HIM DEPARTMENT ProviderMayra MD [place] [address] Social History Tobacco Use Types Packs/Day Years [...] on filedocumented in this encounter Care Teams Ged Instructor Relationship Specialty Start Date End Date Becca Troy MD [address] [place] [address] PCP - General 07/07/05 documented as of this encounter
--- OUTSIDE RECORDS SUMMARY | 2025-01-18 00:22 | XMS_ITS | Encounter Summary ---
Author Organization [facility] Address [address] [place] [address] Care Team Providers Care Foreign Language Stenographer Name Role Phone Becca Troy MD Primary Care Provider [phone] Encounter Details Date Type Department Care Team [...] on filedocumented in this encounter Care Teams Foreign Language Stenographer Relationship Specialty Start Date End Date Becca Troy MD [address] [place] [address] PCP - General 07/07/05 documented as of this encounter
--- OUTSIDE RECORDS SUMMARY | 2025-01-18 00:22 | XMS_ITS | Encounter Summary ---
[facility] Address [address] [place] [address] Care Team Providers Care Concrete Pouring Supervisor Name Role Phone Becca Troy MD Primary Care Provider [phone] Encounter Details Date Type Department Care Team (Late st Contact Info) Description 07/09/2014 Scanned History External to Transferred Record, Provider ADDY LANZA [facility] Social History Tobacco Use Types Packs/Day Years [...] on filedocumented in this encounter Care Teams Concrete Pouring Supervisor Relationship Specialty Start Date End Date Becca Troy MD [address] [place] [address] PCP - General 07/07/05 documented as of this encounter
--- OUTSIDE RECORDS SUMMARY | 2025-01-18 00:22 | XMS_ITS | Encounter Summary ---
Author Organization [facility] Address [address] [address] Care Team Providers Care Internist Medical Doctor Md Name Role Phone Becca Troy MD Primary Care Provider [phone] Encounter Details Date Type Department Care Team (Latest Contact Info) Description 01/14/2025 Orders Only HIM DEPARTMENT ProviderMayra [place] [address] Social History Tobacco Use Types Packs/Day Years [...] on filedocumented in this encounter Care Teams Internist Medical Doctor Md Relationship Specialty Start Date End Date Becca Troy MD [address] [place] [address] PCP - General 07/07/05 documented as of this encounter
--- OUTSIDE RECORDS SUMMARY | 2025-01-18 00:22 | XMS_ITS | Encounter Summary ---
Author Organization [facility] Address [address] [place] [address] Care Team Providers Care Sample Selector Name Role Phone Becca Troy MD Primary Care Provider [phone] Encounter Details Date Type Department Care Team [...] on filedocumented in this encounter Care Teams Sample Selector Relationship Specialty Start Date End Date Becca Troy MD [address] [place] [address] PCP - General 07/07/05 documented as of this encounter
--- OUTSIDE RECORDS SUMMARY | 2025-01-18 00:22 | XMS_ITS | Encounter Summary ---
Author Organization [facility] Address [address] [address] Care Team Providers Care Commercial Correspondent Name Role Phone Becca Troy MD Primary Care Provider [phone] Encounter Details Date Type Department Care Team (Latest Contact Info) Description 01/14/2025 Orders Only HIM DEPARTMENT ProviderMayra [place] [address] Social History Tobacco Use Types Packs/Day Years [...] on filedocumented in this encounter Care Teams Commercial Correspondent Relationship Specialty Start Date End Date Becca Troy MD [address] [place] [address] PCP - General 07/07/05 documented as of this encounter
--- OUTSIDE RECORDS SUMMARY | 2025-01-18 00:22 | XMS_ITS | Encounter Summary ---
Author Organization [facility] Address [address], [place] [address] Care Team Providers Care Cardiology Consultants Name Role Phone Becca Troy MD Primary Care Provider [phone] Encounter Details Date Type Department Care Team (Latest Contact Info) Description 01/14/2025 Orders Only HIM DEPARTMENT ProviderMayra [place] [address] Social History Tobacco Use Types Packs/Day Years [...] on filedocumented in this encounter Care Teams Cardiology Consultants Relationship Specialty Start Date End Date Becca Troy MD [address] [place] [address] PCP - General 07/07/05 documented as of this encounter
--- OUTSIDE RECORDS SUMMARY | 2025-01-18 00:22 | XMS_ITS | Encounter Summary ---
Author Organization [facility] Address [address] [address] Care Team Providers Care Sld Teacher Name Role Phone Becca Troy MD Primary Care Provider [phone] Encounter Details Date Type Department Care Team (Latest Contact Info) Description 01/14/2025 Orders Only HIM DEPARTMENT ProviderMay[place] [address] Social History Tobacco Use Types Packs/Day Years [...] on filedocumented in this encounter Care Teams Sld Teacher Relationship Specialty Start Date End Date Becca Troy MD [address] [place] [address] PCP - General 07/07/05 documented as of this encounter
--- OUTSIDE RECORDS SUMMARY | 2025-01-18 00:23 | XMS_ITS | Encounter Summary ---
Author Organization [facility] Address [address] [address] Care Team Providers Care Wrap Yarn Sorter Name Role Phone Becca Troy MD Primary Care Provider [phone] Encounter Details Date Type Department Care Team (Latest Contact Info) Description 12/30/1999 [place] [address] [place], [place] [id number] Social History Tobacco Use Types Packs/Day Years [...] on filedocumented in this encounter Care Teams Wrap Yarn Sorter Relationship Specialty Start Date End Date Becca Troy MD [address] [place] [address] PCP - General 07/07/05 documented as of this encounter
--- OUTSIDE RECORDS SUMMARY | 2025-01-18 00:23 | XMS_ITS | Encounter Summary ---
Author Organization [facility] Address [address] [address] Care Team Providers Care Instructor Physical Name Role Phone Becca Troy MD Primary Care Provider Encounter Details Date Type Department Care Team (Latest Contact Info) Description 01/16/2025 Orders Only HIM DEPARTMENT ProviderMayra [place] [address] Social History Tobacco Use Types Packs/Day Years [...] on filedocumented in this encounter Care Teams Instructor Physical Relationship Specialty Start Date End Date Becca Troy MD [address] [place] [address] PCP - General 07/07/05 documented as of this encounter
--- OUTSIDE RECORDS SUMMARY | 2025-01-18 00:23 | XMS_ITS | Encounter Summary ---
Author Organization [facility] Address [address] [address] Care Team Providers Care Rigging Engineer Name Role Phone Becca Troy MD Primary Care Provider [phone] Encounter Details Date Type Department Care Team (Latest Contact Info) Description 01/14/2025 Orders Only HIM DEPARTMENT ProviderMayra [place] [address] Social History Tobacco Use Types Packs/Day Years [...] on filedocumented in this encounter Care Teams Rigging Engineer Relationship Specialty Start Date End Date Becca Troy MD [address] [place] [address] PCP - General 07/07/05 documented as of this encounter
--- OUTSIDE RECORDS SUMMARY | 2025-01-18 00:23 | XMS_ITS | Encounter Summary ---
Author [facility] Address [address] [address] Care Team Providers Care Locker Plant Attendant Name Role Phone Becca Troy MD Primary Care Provider [phone] Encounter Details Date Type Department Care Team (Late st Contact Info) Description 01/14/2025 Partner ED HIM DEPARTMENT Provider, [place] [address] [facility] 01/14/2025 Social History Tobacco Use Types [...] on filedocumented in this encounter Care Teams Locker Plant Attendant Relationship Specialty Start Date End Date Becca Troy MD [address] [place] [address] PCP - General 07/07/05 documented as of this encounter
--- OUTSIDE RECORDS SUMMARY | 2025-01-18 00:23 | XMS_ITS | Encounter Summary ---
Author Organization [facility] Address [address] [address] Care Team Providers Care Rn Women Services Name Role Phone Becca Troy MD Primary Care Provider [phone] Encounter Details Date Type Department Care Team [...] Troy MD [address] [place] [address] PCP - General 07/07/05 documented as of this encounter
--- OUTSIDE RECORDS SUMMARY | 2025-01-18 00:23 | XMS_ITS | Clinical Summary ---
Author Organization [facility] Address [address] [place] [address] Care Team Providers Care Squirrel Man Name Role Phone Becca Troy MD Primary Care Provider [phone] Source Comments You are receiving this document [...] for each transition of care or referral. [facility] Allergies Active Allergy Reactions Criticality Noted Date [...] 01/14/2025 Partner ED HIM DEPARTMENT [facility] 01/14/2025 01/14/2025 Orders Only HIM DEPARTMENT Provider, [...] IIV3 (Trivalent) F luzone Highdose, 65+ Yrs (94531) 06/06/2019,04/06/2017,05/28/2015 Influenza IIV4 (Quadrivalent ) 0.5mL (45275) 05/13/2016,04/27/2013 Influenza IIV4 (Quadrivalent ) Fluad, 65+ [...] this topic Medical Devices Implanted Type Area Account Services Representative Device Identifier Shelf Expiration Date Model / Serial / Lot Mesh Ultrapro Oval - [id number] Implanted:Qty: 1 on 07/28/2016 by Abdi Clements MD at [facility] DEVICE Right: INGUINAL J 05/31/2017 [facility] / / [id number] Procedures Procedure Name Priority Date/Time Associated Diagnosis [...] - 199 mg/dL 05/08/2024 2:57 PM CDT [facility] Triglyceride 69 <=149 mg/dL 05/08/2024 2:57 PM CD[facility] HDL Cholesterol 65 >=40 mg/dL 05/08/2024 2:57 PM CDT [facility] LDL, Calculated 82 <130 mg/dL 05/08/2024 2:57 PM CDT [facility] Non HDL Chol, Calculated 96 <=159 mg/dL 05/08/2024 2:57 PM CDT [facility] Cholesterol/HDL Ratio 2.5 <=5.0 05/08/2024 2:57 PM CDT [facility] Hours Fasting 0.1 8 - 12 Hours 05/08/2024 2:57 PM CDT [facility] Blood Venipuncture / Unknown 05/08/2024 12:13 PM CDT 05/08/2024 12:13 PM CDT us Becca Troy MD LAB_1 Final Result [facility] [address] * Endoscopy, colon, diagnostic (12/22/2015 3:09 [...] and oxygen saturations were monitored continuously. The [id number] was introduced through the anus with the [...] history of colonic polyps CPT copyright 2014 [employer]. All rights reserved. The codes documented in this report are preliminary and upon supervisor melt house review may be revised to meet current compliance requirements. Valentin Armando MD 12/22/2015 4:17:02 PM This document has been electronically signed. Number of Addenda: 0 Note Initiated On: 12/22/2015 3:09 PM Endoscopy Report us Valentin Armando MD ET GI PROCEDURE ORDERABLES Fin al Result * HEPATITIS C ANTIBODY, WITH REFLEX (12/04/2014 3:22 PM CDT) Anti-HCV Negative (Non Reactive) [facility]GNR [facility] Comment:Does Not Rule Out In fection with HCV 12/04/2014 3:22 PM CDT 12/04/2014 3:26 PM CDT Narrative [facility] - 12/05/2014 10:29 AM CDT Performed at [facility], [address] [place] [address] us Becca Troy MD LAB_1 Final Result [facility] [phone] from Last 3 Months or Most Recently Relevant to Health Maintenance Insurance MEDICARE [address] [place] [id number] Advance Directives * Full Code (Latest Code Status on File) Date Activated Date Inactivated Comments 07/02/2017 7:13 PM 07/03/2017 6:54 PM * Full Code Date Activated Date Inactivated Comments 07/28/2016 10:46 AM 07/28/2016 5:13 PM Care Teams Squirrel Man Relationship Specialty Start Date End Date Becca Troy MD [address] [place] [address] PCP - General 07/07/05
--- OUTSIDE RECORDS SUMMARY | 2025-01-18 00:23 | XMS_ITS | Encounter Summary ---
Author Organization [facility] Address [address] [address] Care Team Providers Care Insurance Collector Name Role Phone Becca Troy MD Primary Care Provider [phone] Encounter Details Date Type Department Care Team [...] on filedocumented in this encounter Care Teams Insurance Collector Relationship Specialty Start Date End Date Becca Troy MD [address] [place] [address] PCP - General 07/07/05 documented as of this encounter
--- OUTSIDE RECORDS SUMMARY | 2025-01-18 00:23 | XMS_ITS | Encounter Summary ---
Author [facility] Address [address] [place] [address] Care Team Providers Care Lead Systems Engineer Name Role Phone Becca Troy MD Primary Care Provider [phone] Encounter Details Date Type Department Care Team [...] on filedocumented in this encounter Care Teams Lead Systems Engineer Relationship Specialty Start Date End Date Becca Troy MD [address] [place] [address] PCP - General 07/07/05 documented as of this encounter
--- OUTSIDE RECORDS SUMMARY | 2025-01-18 00:23 | XMS_ITS | Encounter Summary ---
Author Organization [facility] Address [address] [address] Care Team Providers Care Auto Servicer Name Role Phone Becca Troy MD Primary Care Provider [phone] Encounter Details Date Type Department Care Team (Latest Contact Info) Description 03/16/2000 Orders Only Birdie Rosen, STABBER, POWER TRANSFORMER INSPECTOR [address] [address] Social History Tobacco Use Types Packs/Day Years [...] filedocumented in this encounter Care Teams Auto Servicer Relationship Specialty Start Date End Date Becca Troy MD [address] [place] [address] PCP - General 07/07/05 documented as of this encounter
--- OUTSIDE RECORDS SUMMARY | 2025-01-18 00:23 | XMS_ITS | Encounter Summary ---
Author Organization [facility] Address [address] [address] Care Team Providers Care Correctional Treatment Specialist Name Role Phone Becca Troy MD Primary Care Provider [phone] Encounter Details Date Type Department Care Team (Latest Contact Info) Description 01/16/2025 Orders Only HIM DEPARTMENT ProviderMayra MD [place] [address] Social History Tobacco Use Types Packs/Day Years [...] on filedocumented in this encounter Care Teams Correctional Treatment Specialist Relationship Specialty Start Date End Date Becca Troy MD [address] [place] [address] PCP - General 07/07/05 documented as of this encounter
--- OUTSIDE RECORDS SUMMARY | 2025-01-18 00:23 | XMS_ITS | Encounter Summary ---
Author Organization [facility] Address [address], [place] [address] Care Team Providers Care Cleaning Technician Name Role Phone Becca Troy MD Primary Care Provider [phone] Encounter Details Date Type Department Care Team [...] on filedocumented in this encounter Care Teams Cleaning Technician Relationship Specialty Start Date End Date Becca Troy MD [address] [place] [address] PCP - General 07/07/05 documented as of this encounter
== END 2025-01-16 18:04 | disposition home or self-care (01) ==
PROVIDERS: PCP Family Medicine; Visit Provider Emergency Medicine
DX: S72.142A Displaced intertrochanteric fracture of left femur, initial encounter for closed fracture (principal); S42.302A Unspecified fracture of shaft of humerus, left arm, initial encounter for closed fracture; D62 Acute posthemorrhagic anemia
CPT/HCPCS: A0425; A0434

== ENCOUNTER 2025-03-25 06:57 | Inpatient (IN) | payer MEDICARE, SELFPAY ==
[2025-03-25] VITALS (25 sets, daily range): BP systolic 92–118; BP diastolic 47–86; PULSE 76–110; RESP 13–20; TEMP 35.8–36.8; O2SAT 67–96; BMI 23.9
[2025-03-25] MEDS: ACETAMINOPHEN 500 MG TABLET 1000 MG PO ×3 (07:55→23:38)
[2025-03-25] MEDS: OXYCODONE (CR) 10 MG TAB.ER.12H PO (07:55)
[2025-03-25] MEDS: LACTATED RINGERS 1000 ML 1,000 ML 100 ML IV ×2 (08:10→11:37)
[2025-03-25] MEDS: SODIUM CHLORIDE 0.9 % (FLUSH) 10 ML SYRINGE IVF (08:10)
--- NOTE | 2025-03-25 09:07 | W.PM.H&PU ---
History & Physical Update History & Physical Update H&P Reviewed and patient assessed: No changes noted
--- NOTE | 2025-03-25 09:45 | SUR.PREOP ---
TIME?OUT:?0945 PT/RN/MDA?VERIFICATION?OF?SURGICAL?SITE,?PROCEDURE,?AND?CONSENT OBTAINED?PRIOR?TO?INVASIVE?PROCEDURE.
[2025-03-25] MEDS: MIDAZOLAM HCL 1 MG/ML inj IVP (09:53)
--- NOTE | 2025-03-25 09:54 | P.ANES_ITS ---
Anesthesia Charges Start Date/Time Anesthesia Start Date: 03/25/25 Anesthesia Start Time: 11:37 Stop Date/Time Anesthesia Stop Date: 03/25/25 Anesthesia Stop Time: 14:40 Summary Extremes of Age - Over 70 or under 1: MDA Coding CPT Codes CPT Codes: ANESTH SHOULDER REPLACEMENT - 54998 ([id number]) P3 - PATIENT W/SEVERE SYS DISEASE, QK - WIRE WEAVER CLOTH 2-4 CNCRNT ANES PROC, QX - CONCRETE FINISHING MACHINE OPERATOR SVC W/ MD MED DIRECTION Additional Codes: Summary - Extremes of Age - Over 70 or under 1: MDA ([id number])
--- NOTE | 2025-03-25 09:54 | P.NB_ITS ---
Nerve Block Nerve Block Time Seen by Provider: 09:52 Date Seen: 03/25/25 Type of block requested by surgeon for post-operative analgesia: supraclavicular Side: left Time out performed: Yes Verification of patient name: Yes Verification of date of : Yes Site marking: site marked Name of person performing procedure: Marcial Continuous monitoring Was continuous monitoring of O2 sat, B/P, monitoring coordinator, recorded every 15 minutes?: Yes Procedure Checklist: sterile prep, needles and gloves Ultrasound guided. Images saved: Yes Medications given in 5ml increments after negative aspiration: Ropivicaine %: 0.5 mL: 20 Needle gauge: 22 Precedex (mcg): 25 Patient tolerated procedure well: Yes Block Charges Block Charge (with Pro Fee): Brachial Plexus Use of Ultrasound Machine for Block: Yes- US Guidance/pain block
--- NOTE | 2025-03-25 09:54 | W.ANESCHARGE ---
Anesthesia Charges Start Date/Time Anesthesia Start Date: 03/25/25 Anesthesia Start Time: 11:37 Stop Date/Time Anesthesia Stop Date: 03/25/25 Anesthesia Stop Time: 14:40 Summary Extremes of Age - Over 70 or under 1: MDA Coding CPT Codes CPT Codes: ANESTH SHOULDER REPLACEMENT - 29093 ([id number]) P3 - PATIENT W/SEVERE SYS DISEASE, QK - FIRE PILOT 2-4 CNCRNT ANES PROC, QX - BENEFITS COORDINATOR SVC W/ MD MED DIRECTION Additional Codes: Summary - Extremes of Age - Over 70 or under 1: MDA ([id number])
--- NOTE | 2025-03-25 11:59 | CRLHL7_ITS ---
For Patients: As a result of the Cures Act, medical imaging exams and procedure reports are released immediately into your electronic medical record. You may view this report before your referring provider. If you have questions, please contact your health care provider. Indication: Postop Technique: Right shoulder 3 views. 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 Prosthesis are appropriately positioned. Moderate adjacent soft tissue swelling and emphysema. Dictated by Araseli North MD @ 03/25/2025 4:49:53 PM (Electronically Signed)
[2025-03-25] MEDS: TRANEXAMIC ACID 100 MG/ML INJ 1000 MG IV (12:05)
--- NOTE | 2025-03-25 12:16 | P.ANES_ITS ---
Anesthesia Charges Start Date/Time Anesthesia Start Date: 03/25/25 Anesthesia Start Time: 11:37 Stop Date/Time Anesthesia Stop Date: 03/25/25 Anesthesia Stop Time: 14:40 Summary Extremes of Age - Over 70 or under 1: GROUND WORKER Coding CPT Codes CPT Codes: ANESTH SHOULDER REPLACEMENT - 70262 ([id number]) P3 - PATIENT W/SEVERE SYS DISEASE, QK - BIOINFORMATICS SUPPORT SPECIALIST 2-4 CNCRNT ANES PROC, QX - GROUND WORKER SVC W/ MD MED DIRECTION Additional Codes: Summary - Extremes of Age - Over 70 or under 1: GROUND WORKER ([id number])
--- NOTE | 2025-03-25 12:16 | W.ANESCHARGE ---
Anesthesia Charges Start Date/Time Anesthesia Start Date: 03/25/25 Anesthesia Start Time: 11:37 Stop Date/Time Anesthesia Stop Date: 03/25/25 Anesthesia Stop Time: 14:40 Summary Extremes of Age - Over 70 or under 1: GOSPEL SINGER Coding CPT Codes CPT Codes: ANESTH SHOULDER REPLACEMENT - 17770 ([id number]) P3 - PATIENT W/SEVERE SYS DISEASE, QK - SHEET METAL WORKER MAINTENANCE 2-4 CNCRNT ANES PROC, QX - GOSPEL SINGER SVC W/ MD MED DIRECTION Additional Codes: Summary - Extremes of Age - Over 70 or under 1: GOSPEL SINGER ([id number])
--- NOTE | 2025-03-25 14:07 | PM.ORPRC ---
Procedure Note Date of procedure: 03/25/25 Procedure: PREOPERATIVE DIAGNOSIS: 1. Left proximal humerus fracture, 4 part, remote, malunion with substantial displacement of the shaft relative to the head. 2. History of alcohol abuse status post delirium tremens following admission to [facility] 12/2024 requiring transfer to [facility] and subsequent admission to the ICU for multiple weeks. In the time, she was set to have a reverse shoulder arthroplasty for this complex left proximal humerus fracture but given the transfer, the procedure was not able to be done acutely. POSTOPERATIVE DIAGNOSIS: 1. Left proximal humerus 4 part malunited fracture with substantial displacement 2. Left proximal long head of the biceps tendinopathy with displacement of the groove. PROCEDURE: 1. Left reverse shoulder arthroplasty - modifier 22: 75% added time and difficulty for this case due to the malunion of the 4 part proximal humerus fracture in this left side. This resulted in the humeral head still reduced within the glenoid, but the entire humeral shaft had displaced anteriorly and shortened with the fracture spike nearly touching the coracoid. This also had abundant callus as it has been 2+ months since her injury. Anatomy was tremendous altered. Particular caution was required particularly around the axillary artery and brachial plexus given the substantially adherent bone, callus, and scar tissue following her injury from 12/2024. 2. Left long head of biceps open tenotomy SURGEON: Jamie Smallwood MD. [employer] SALES REPRESENTATIVE: Tanner Mclain PA-C - Of note, a skilled assistant oceanographer was critical for this case to aid in patient positioning, tissue retraction, limb manipulation/positioning, retraction for glenoid exposure, which was challenging, awareness and protection of critical structures, and closure. ANESTHESIA: General plus supraclavicular block EBL: 200 ml IMPLANTS: DJ0 surgical Altivate humeral stem size 10 small shell, short with P2 porous coating vitamin E semi constrained poly small socket insert RSP glenoid base plate P2 porous coating with 3 perimeter locking screws 32 (-6mm) glenosphere with retaining screw COMPLICATIONS: None evident INDICATIONS: The patient is a pleasant 74-year-old female who sustained a fall 12/2024. This resulted in left intertrochanteric femur fracture and comminuted left proximal humerus fracture. Both were closed injuries. The femur fracture was fixed during the original admission, but while we are awaiting implants (1-2 days) for the shoulder the patient went into delirium tremens due to alcohol withdrawal. This required a transfer to [facility] for ICU admission and convalescence. She then return to my office with complete dysfunction of the left shoulder. Neurologically she was intact in the axillary, radial, ulnar, and median nerve distribution but she had no real function due to the malunion. Given her dysfunction and even pain, surgery is indicated to improve her pain, and have a pursuit of some improved function. DESCRIPTION OF PROCEDURE: Following a thorough discussion of risks, benefits, and alternatives, consent was obtained and the left shoulder was marked. The patient was brought to the operating room and placed supine on the operating table. Induction of anesthesia was undertaken. 1 g IV Ancef and 1 g tranexamic acid was administered within 1 hr of incision preoperatively. Appropriate time-out was performed identifying proper patient, site, and procedure. The operative extremity was prepped and draped in the appropriate sterile fashion using ChloraPrep after the patient was positioned in the lazy beach chair position with head in neutral alignment and all bony prominences well padded. A longitudinal incision was made for deltopectoral approach. Deltoid was retracted laterally. Cephalic vein was identified and retracted laterally as well. The vein was very small yet was protected throughout the case. The anatomy was tremendously altered. Her deltoid was somewhat thin, but clearly visible. The pectoralis was difficult to identify. The humeral shaft was readily accessible anteriorly. However, it was displaced substantially anterior, superior, and medial. It was difficult to identify any plane between the humeral shaft and head. A Mohr elevator had to help with this along with rongeur. Approximately 1 hour was spent mobilizing the humeral shaft, excising the humeral head, and attempting to spare the tuberosities. The bone for the tuberosities was very poor and had some rotator cuff tendon tissue connected, but as it was shortened and has been shortened for 2+ months, the excursion was extremely limited. Ongoing dissection finally allowed access to the glenoid. The labrum was excised while the humeral shaft was translated anterior. The glenoid had appropriate exposure, and was prepared with the cannulated system [utilizing the match Point 3D printed guide. Accordingly, the guide pin was placed, the 3D printed jig removed and after placing the guide pin, the tap was placed followed by the glenoid reaming. The real base plate was opened, inserted, and had excellent compression/purchase with the central screw. Peripheral screws were then drilled, measured, and placed. A trial glenosphere was then placed and attention turned to the humerus preparation. A canal finder was placed followed by various reamers by hand. A trial broach was placed and trial reduction performed. Appropriate tension was confirmed. Trial implants were removed. Thorough irrigation normal saline undertaken. The real glenosphere was opened and inserted with the retaining screw. The real humeral component was opened and inserted. An excellent fit and stability was achieved. Semi constrained polyethylene was also opened and inserted and reduction performed again with excellent stability with the shoulder placed through range of motion. A 3 minute Betadine soak was performed followed by a thorough irrigation with normal saline. There was no subscapularis to repair. Hemostasis was found to be appropriate. The deltopectoral interval was reapproximated with #0 Vicryl, subcutaneous and subcuticular closure was then performed with number 2-0 Stratafix and 4-0 Monocryl, respectively. A skilled assistant oceanographer was critical for this case to aid in patient positioning, tissue retraction, limb manipulation/positioning, retraction for glenoid exposure, which was challenging, awareness and protection of critical structures, and closure. * Again, 75% added time and difficulty for this case due to the malunion of the 4 part proximal humerus fracture in this left side. This resulted in the humeral head still reduced within the glenoid, but the entire humeral shaft had displaced anteriorly and shortened with the fracture spike nearly touching the coracoid. This also had abundant callus as it has been 2+ months since her injury. Anatomy was tremendous altered. Particular caution was required particularly around the axillary artery and brachial plexus given the substantially adherent bone, callus, and scar tissue following her injury from 12/2024. PLAN: 1. Sling at all times for the operative upper extremity. 2. AROM of elbow, forearm, wrist, and digits as tolerated. 3. PT/OT consults for education and assistance. 4. Social consult for discharge planning. 5. 23 hr perioperative antibiotics. 6. Early ambulation, and SCDs for DVT prophylaxis. 7. Admit to the hospital for the above 8. Analgesics p.r.n.
--- NOTE | 2025-03-25 15:01 | PC.SOCIAL ---
Discharge planning- Phone call to Brenda Cornell at [phone] to obatin baseline information and confirm bed hold. Phone call was transferred to LTC nursing education consultant, left voicemail x2. Per hospital nursing staff, patient is on a bed hold with SNF. Social work will continue to follow up on discharge planning as needed.
--- NOTE | 2025-03-25 15:57 | CRLHL7_ITS ---
For Patients: As a result of the Cures Act, medical imaging exams and procedure reports are released immediately into your electronic medical record. You may view this report before your referring provider. If you have questions, please contact your health care provider. INDICATION: Hypoxia. TECHNIQUE: Chest 1 views. COMPARISON: January 16, 2025. FINDINGS: Cardiovasculature and mediastinum: Heart size is normal. Unremarkable mediastinum. Lungs and pleural spaces: Lungs are clear. No sign of infiltrate or mass. No sign of pleural effusion. No pneumothorax. Bones and soft tissues: No significant findings. IMPRESSION: Negative chest. No specific finding to explain hypoxia. Dictated by Kodak Dobson MD @ 03/25/2025 4:44:10 PM (Electronically Signed)
--- NOTE | 2025-03-25 16:12 | P.IMCN_ITS ---
Date of Consult Patient: Other Consult date: 03/25/25 Requesting Physician: Orthopedics Primary Care Provider: Becca Troy MD Consult Narrative Narrative: Jessica Burdick is a 74 year old female admitted to the hospital for left reverse total shoulder arthroplasty. Procedure performed by Dr. Smallwood. No operative complications. He has requested consultation for management of medi rafael problems. Patient was hospitalized here 01/14/2025 after a fall at home where she sustained a left intertrochanteric fracture which was repaired at that time. She also had a closed displaced left humeral head fracture which was not repaired at that time. Postoperative course was complicated by severe alcohol withdrawal requiring intubation and transfer to [facility]. Since that hosp italization she has been getting rehabilitation at [facility]. Today she had reverse left shoulder arthroplasty for her displaced humeral head fracture. She reports feeling fine after surgery. She has numbness in her left arm and no significant pain. She reports possibly some mild dyspnea. Anesthesia and nursing staff noted that she was hypoxic prior to surgery, required oxygen during surgery and continues to require oxygen in recovery. She reports no recent illness. No chest pain or cough or fever. Review of Systems Narrative: She reports a tendency towards diarrhea but no other medical concerns. [facility] Medical History (Updated 03/25/25 @ 16:37 by Gennaro Thompson MD) Impaired mobility ?Z74.09 - Other reduced mobility (ICD-10) Sedentary lifestyle ?Z91.89 - Other specified personal risk factors, not elsewhere classified (ICD-10) Malnutrition ?E46 - Unspecified protein-calorie malnutrition (ICD-10) Cannabis use disorder ?F12.90 - Cannabis use, unspecified, uncomplicated (ICD-10) Alcohol use disorder ?F10.90 - Alcohol use, unspecified, uncomplicated (ICD-10) Acute on chronic blood loss anemia ?D62 - Acute posthemorrhagic anemia (ICD-10) Kidney stone ?N20.0 - Calculus of kidney (ICD-10) GERD (gastroesophageal reflux disease) ?K21.9 - Gastro-esophageal reflux disease without esophagitis (ICD-10) Depression ?F32.A - Depression, unspecified (ICD-10) Septic shock due to Escherichia coli ?A41.51 - Sepsis due to Escherichia coli [E. coli] (ICD-10) ?R65.21 - Severe sepsis with septic shock (ICD-10) Chronic anemia ?D64.9 - Anemia, unspecified (ICD-10) Hyponatremia ?E87.1 - Hypo-osmolality and hyponatremia (ICD-10) Acute renal failure due to urinary obstruction ?N17.9 - Acute kidney failure, unspecified (ICD-10) ?N13.9 - Obstructive and reflux uropathy, unspecified (ICD-10) Meniere disease ?H81.09 - Meniere's disease, unspecified ear (ICD-10) COPD (chronic obstructive pulmonary disease) ?J44.9 - Chronic obstructive pulmonary disease, unspecified (ICD-10) H/O traumatic brain injury (2005) ?Z87.820 - Personal history of traumatic brain injury (ICD-10) DIC (disseminated intravascular coagulation) ?D65 - Disseminated intravascular coagulation [defibrination syndrome] (ICD- 10) Surgical History (Updated 03/25/25 @ 16:32 by Gennaro Thompson MD) Status post reverse arthroplasty of left shoulder (03/25/25) ?Z96.612 - Presence of left artificial shoulder joint (ICD-10) History of kidney donation ?Z90.5 - Acquired absence of kidney (ICD-10) S/P ORIF (open reduction internal fixation) fracture (09/04/07) ?Z98.890 - Other specified postprocedural states (ICD-10) ?Z87.81 - Personal history of (healed) traumatic fracture (ICD-10) History of surgery on lower extremity (01/14/25) ?Z98.890 - Other specified postprocedural states (ICD-10) H/O cystoscopy ?Z98.890 - Other specified postprocedural states (ICD-10) S/P ectopic ?Z87.59 - Personal history of other complications of , childbirth and the puerperium (ICD-10) Kidney donor ?Z52.4 - Kidney donor (ICD-10) Family History (Updated 03/25/25 @ 16:24 by Gennaro Thompson MD) Other Diabetes Wilmer's granulomatosis Social History (Updated 03/25/25 @ 16:26 by Gennaro Thompson MD) Narrative: Lived with her (Ross) in [place] prior to her hip and humerus fractures in December 2024; now at [facility]. He would be medical decision maker if needed. Former cigarette smoker, previously smoked marijuana daily and drink alcohol heavily. No marijuana or alcohol for 2 months. What is your current living situation?: I presently have a place to live Problems where you live: no known problems Problems where you live details: na In the past 12 months, utilities in danger of being shut off: no In past 12 months, lack of transportation kept you from medical appts, meetings, work, or getting things needed for daily living: no In the past 12 mos, have been you worried that your food would run out before you had money to buy more?: never true In the past 12 mos, the food you bought just didn't last and you didn't have money to buy more?: never true Smoking Status: Former smoker What tobacco products do you use: cigarettes Smoking packs per day: 0.8 Smoking cigarettes per day: 16.0 Years smoked: 50 Smoking pack-years: 40.00 Smoking quit date/years: >15 years ago Do you use any of these nicotine containing products: None Second hand tobacco smoke exposure: No How often do you have a drink containing alcohol: never How many standard drinks containing alcohol do you have on a typical day: 3 or 4 AUDIT-C Alcohol total score: 1 Non-prescribed substance use: marijuana (any form) Caffeine: Yes How often does anyone, including family, friends and others, physically hurt you : never How often does anyone, including family, friends and others, insult or talk down to you: never How often does anyone, including family, friends and others, threaten you with harm: never How often does anyone, including family, friends and others, scream or curse at you: never service: No Meds Home Medications and Allergies Home Medications ?Medication ?Instructions ?Recorded ?Confirmed ?Type clomipramine 50 mg capsule 50 mg PO BID 01/14/2503/25 History fluticasone furoate 200 1 ea inhalation DAILY 03/25/25 History mcg-vilanterol 25 mcg/dose inhalation powder (Breo Ellipta) meclizine 25 mg tablet 25 mg PO DAILY PRN dizziness 01/14/25 03/25/25 History acetaminophen 500 mg tablet 500 mg PO QID PRN 03/12/25 03/25/25 History (Tylenol Extra Strength) folic acid 1 mg tablet 1 mg PO QDAY alcohol depende nce 03/12/25 03/25/25 History withdrawl mirtazapine 15 mg tablet 15 mg PO QHS appetite stimul ant 03/12/25 03/25/25 History multivitamin (Multiple Vitamins 1 tab PO QDAY 03/12/25 03/25/25 History tablet) lidocaine 4 % topical patch 1 patch topical DAILY PRN 03/25/25 03/25/25 History Allergies Allergy/AdvReac Type Severity Reaction Status Date / Time codeine Allergy Mild Vomiting Verified 03/25/25 08:18 hydrocodone Allergy Mild Anxiety Verified 03/25/25 08:18 Penicillins Allergy Mild Verified 03/25/25 08:18 Exam Narrative: Exam Narrative: She is alert and appears in no distress. She appears to have some forgetfulness and unable to give significant details of past medical history. Pleasant and cooperative this. Oropharynx with some dental loss but otherwise normal. Neck is supple without mass or adenopathy or stridor. Respirations are clear to auscultation except a few fine crackles at her right base. Diminished breath sounds in all lung kincaid. O2 sat is 89 % on 3 L per nasal cannula. Cardiovascular: S1, S2, regular rate and rhythm. No murmur gallop or rub. Abdomen: Bowel sounds active. Abdomen is soft without tenderness or mass. Left upper extremity is noted to have an affective block with diminished sensation and essentially no motion in the hand. She has intact capillary refill and radial pulse. Lower extremities bilaterally with intact pulses, motion and sensation and trace edema. Const: Vital Signs, click to edit/add: Vital Signs - 24 hr 03/25/25 08:20 03/25/25 09:45 03/25/25 10:00 Temperature Pulse Rate 90 86 81 Respiratory Rate 20 18 16 Blood Pressure 118/72 106/66 98/69 Pulse Oximetry 89 96 96 Oxygen Delivery Me thod Room Air Nasal Cannula Nasal Cannula Oxygen Flow Rate 2 2 03/25/25 10:30 03/25/25 11:00 03/25/25 14:35 Temperature 97.2 F L Pulse Rate 80 76 110 H Respiratory Rate 18 16 18 Blood Pressure 98/60 105/64 115/86 Pulse Oximetry 96 96 67 L Oxygen Delivery Me thod Nasal Cannula Nasal Cannula OxyMask Oxygen Flow Rate 2 2 15 03/25/25 14:40 03/25/25 14:45 03/25/25 14:50 Temperature Pulse Rate 99 98 97 Respiratory Rate 19 16 13 Blood Pressure 117/75 104/63 104/53 L Pulse Oximetry 90 95 94 Oxygen Delivery Me thod Nasal Cannula Oxygen Flow Rate 10 6 4 03/25/25 14:55 03/25/25 15:00 03/25/25 15:05 Temperature 97.3 F L Pulse Rate 97 99 93 Respiratory Rate 14 19 13 Blood Pressure 97/55 L 92/56 L 94/59 L Pulse Oximetry 92 90 88 Oxygen Delivery Me thod Oxygen Flow Rate 3 5 03/25/25 15:09 Temperature Pulse Rate 93 Respiratory Rate 14 Blood Pressure 92/55 L Pulse Oximetry 89 Oxygen Delivery Me thod Oxygen Flow Rate Documenting provider has reviewed patient's vital signs: yes Assessment and Plan Assessment and plan (1) Status post reverse arthroplasty of left shoulder: Problem comment: Left reverse shoulder arthroplasty, left long head of biceps open tenotomy (03/25/25, Dr. Smallwood) Status: Acute (2) Postoperative hypoxia: Problem comment: Was hypoxic prior to surgery and received supplemental oxygen through the operation and in recovery. Remains hypoxic requiring 3 L per nasal cannula to maintain O2 sats in the upper 80s to low 90s. Likely some component is chronic due to COPD and some acute due to surgery/anesthesia. Continue to evaluate. Status: Acute (3) Chronic anemia: Problem comment: Preop hemoglobin was 10. After hip surgery in December hemoglobin dropped to 7.4 and she received 1 unit of blood transfusion Status: Acute Assessment and Plan: * (4) COPD (chronic obstructive pulmonary disease): Problem comment: Due to cigarette smoking. Not on chronic oxygen. Status: Acute (5) Alcohol use disorder: Problem comment: Currently in remission after hospital stay and rehab in SNF. Status: Acute (6) Impaired mobility: Problem comment: Mobility impairment due to ongoing recovery from left intertrochanteric fracture now 2 months out from ORIF and left reverse shoulder arthroplasty March 25 2025. Ongoing therapy planned Status: Acute (7) Severe alcohol withdrawal delirium: Problem comment: Hospitalization in December 2024 associated with severe alcohol withdrawal requiring propofol drip and intubation. No alcohol or cannabis since that time as she has been in rehab. Status: Acute Plan Patient is admitted to the hospital for management of postoperative cares and chronic medical problems. Continue to evaluate and manage hypoxia, pain, mobility problems. Anticipate discharge back to [facility] for ongoing rehab. Total Time Spent Total Time Spent: Total time spent today is 45 minutes in reviewing outside records, coordination of care and discussing with patient and other providers ongoing management of above medical problems
[2025-03-25 16:50] LABS: HCO3 VBG 27 mmol/L (21-28); Hematocrit 31.7 % (33.0-51.0); Hemoglobin* 9.7 gm/dL (12.0-16.0); Immature Granulocytes Pct Auto 0.6 %; Mean Corpuscular HGB Conc 31 gm/dL (32-36); Mean Corpuscular Hemoglobin 28 pg (26-34); Mean Corpuscular Volume 91 fL (80-100); PCO2 VBG 55 mmHG (40-50); PO2 VBG < 30.1 mmHG (25-47); RDW Coefficient of Variation % 16.2 % (11.5-15.5); Red Blood Count 3.48 m/uL (4.00-5.20); White Blood Count* 11.11 K/uL (4.50-11.00); pH VBG 7.296 (7.32-7.43)
[2025-03-25 16:58] LABS: Immature Granulocytes Abs Auto 0.10 K/uL (0.00-0.30); Lymphocytes Absolute Auto 0.60 K/uL (0.90-2.90)
[2025-03-25 16:59] LABS: Slide Review Reflex No
[2025-03-25] MEDS: IPRAT-ALBUT 0.5-2.5 MG/3 ML NEB 1 NEB IH (16:59)
[2025-03-25 17:12] LABS: Chloride* 104 mmol/L (96-114); Potassium* 4.6 mmol/L (3.6-5.1); Sodium* 135 mmol/L (135-149)
[2025-03-25 17:15] LABS: Anion Gap 4 mEq/L (7-15); Blood Urea Nitrogen* 15 mg/dL (7-30); Carbon Dioxide* 27 mmol/L (20-32); Creatinine* 0.8 mg/dL (0.5-1.5); Est. Creatinine Clearance* 46.54; Estimated Glomerular Filt Rate 76 ml/min
[2025-03-25 17:16] LABS: Calcium* 8.8 mg/dL (8.4-10.6); Glucose* 121 mg/dL (60-115)
[2025-03-25 17:33] LABS: NT Pro B Type NatriureticPept* 293 pg/mL (See Note)
[2025-03-25] MEDS: CEFAZOLIN 1 GM in 0.9 % SODIUM CHLORIDE Mini-bag 100 ML IVPB (17:59)
[2025-03-25] MEDS: MIRTAZAPINE 15 MG TABLET PO (20:42)
--- NOTE | 2025-03-25 23:37 | PC.NURSE ---
Patient returned from surgery on 3 liters of O2 via NC. Demonstrated a productive cough. Using Incentive spirometer. Pt able to wean down to 1 liter per NC and sating in the mid 88-93% on this. Pt's surgical/left arm is numb with good circulation. Able to move all fingers by the end of shift. Up to the commode with assist of 2 and the gaitbelt. Tolerated a regular diet with no nausea or vomiting. Active ice to left shoulder. Surgical dressing is clean, dry and intact.
[2025-03-26] MEDS: CEFAZOLIN 1 GM in 0.9 % SODIUM CHLORIDE Mini-bag 100 ML IVPB ×2 (02:10→09:03)
[2025-03-26 02:13] VITALS: BP 100/53; PULSE 93; RESP 16; TEMP 35.9; O2SAT 91
[2025-03-26] MEDS: IPRAT-ALBUT 0.5-2.5 MG/3 ML NEB 1 NEB IH ×2 (03:43→10:17)
[2025-03-26] MEDS: ACETAMINOPHEN 500 MG TABLET 1000 MG PO (06:11)
--- NOTE | 2025-03-26 06:21 | PC.NURSE ---
Shift note:Patient has been in bed throughout the shift. Changed 1x at 0400 upon request. Patient prefers to be changed only when requested. Patient declined when offered to ambulate to the BR. Alert and oriented. Vitally stable. Patient has been on 1L of oxygen via OxyMask. O2 has been between 90 and 93% but quickly desaturates without oxygen. Left arm in sling. CMS intact, pulse 2+ in the left wrist. Ice applied. Pain rated at 3/10. Pain level rated at 10/10. Oxycodone PRN and scheduled Tylenol were effective with the pain.
[2025-03-26 08:25] VITALS: BP 100/53; PULSE 93; RESP 16; TEMP 35.9; O2SAT 85; O2SAT 91
[2025-03-26 08:27] VITALS: PULSE 93; RESP 16
--- NOTE | 2025-03-26 08:55 | P.ORPN_ITS ---
Subjective Subjective Date Seen: 03/26/25 Principal diagnosis: POD1 left reverse total shoulder arthroplasty Interval history: Patient reports pain throughout the left shoulder. Also reports stiff left elbow. No acute events over night. Pain managed with scheduled and PRN medications, ice. DVT prophylaxis: SCDs, walking. Still not walking great approximately 2 months post left femur IM nail. Denies fevers, chills, aches, N/V, CP, SOB/VELASCO, or lightheadedness. Will return to [facility] today for rehab; she desires to return back home as soon as possible. Ortho Exam Narrative Exam Narrative: -Patient appears comfortable in recliner; no apparent acute distress -Alert and oriented times 3 -Operative shoulder swollen; soft, supple tissues; no obvious erythema. No significant ecchymosis. Warmth appropriate. Discomfort to shoulder soft touch -Surgical dressing clean, dry, intact; no obvious drainage, no erythematous streaking peripheral to the bandage -Bilateral calves soft and supple; no significant swelling, edema, tenderness, erythema, discoloration, warmth, or palpable cords -2+ radial pulse, intact dermatomes and myotomes distally (5/5 strength) Const Vital Signs, click to edit/add: Vital Signs - 24 hr 03/25/25 09:45 03/25/25 10:00 03/25/25 10:30 Temperature Pulse Rate 86 81 80 Pulse Rate [Right Pulse Oximeter] Respiratory Rate 18 16 18 Blood Pressure 106/66 98/69 98/60 Blood Pressure [Right Arm] Pulse Oximetry 96 96 96 Oxygen Delivery Method Nasal Cannula Nasal Cannula Nasal Cannula Oxygen Flow Rate 2 2 2 03/25/25 11:00 03/25/25 14:35 03/25/25 14:40 Temperature 97.2 F L Pulse Rate 76 110 H 99 Pulse Rate [Right Pulse Oximeter] Respiratory Rate 16 18 19 Blood Pressure 105/64 115/86 117/75 Blood Pressure [Right Arm] Pulse Oximetry 96 67 L 90 Oxygen Delivery Method Nasal Cannula OxyMask Oxygen Flow Rate 2 15 10 03/25/25 14:45 03/25/25 14:50 03/25/25 14:55 Temperature Pulse Rate 98 97 97 Pulse Rate [Right Pulse Oximeter] Respiratory Rate 16 13 14 Blood Pressure 104/63 104/53 L 97/55 L Blood Pressure [Right Arm] Pulse Oximetry 95 94 92 Oxygen Delivery Method Nasal Cannula Oxygen Flow Rate 6 4 3 03/25/25 15:00 03/25/25 15:05 03/25/25 15:09 Temperature 97.3 F L Pulse Rate 99 93 93 Pulse Rate [Right Pulse Oximeter] Respiratory Rate 19 13 14 Blood Pressure 92/56 L 94/59 L 92/55 L Blood Pressure [Right Arm] Pulse Oximetry 90 88 89 Oxygen Delivery Method Oxygen Flow Rate 5 03/25/25 15:17 03/25/25 15:30 03/25/25 15:45 Temperature 96.5 F L 98.1 F 97.6 F Pulse Rate Pulse Rate [Right Pulse Oximeter] 88 87 92 Respiratory Rate 16 16 16 Blood Pressure Blood Pressure [Right Arm] 93/76 96/55 L 98/56 L Pulse Oximetry 88 90 88 Oxygen Delivery Method Nasal Cannula Nasal Cannula Nasal Cannula Oxygen Flow Rate 4 3 3 03/25/25 16:00 03/25/25 16:15 03/25/25 16:45 Temperature 97.6 F Pulse Rate Pulse Rate [Right Pulse Oximeter] 83 84 83 Respiratory Rate 16 18 16 Blood Pressure Blood Pressure [Right Arm] 97/55 L 92/62 98/52 L Pulse Oximetry 88 88 89 Oxygen Delivery Method Nasal Cannula Nasal Cannula Nasal Cannula Oxygen Flow Rate 4 2 1 03/25/25 17:15 03/25/25 18:00 03/25/25 19:00 Temperature 98.3 F Pulse Rate Pulse Rate [Right Pulse Oximeter] 88 96 106 H Respiratory Rate 16 16 16 Blood Pressure Blood Pressure [Right Arm] 114/55 L 115/70 104/47 L Pulse Oximetry 87 L 92 91 Oxygen Delivery Method Nasal Cannula Nasal Cannula Nasal Cannula Oxygen Flow Rate 1 1 1 03/25/25 20:00 03/25/25 21:00 03/25/25 23:00 Temperature Pulse Rate Pulse Rate [Right Pulse Oximeter] 97 108 H Respiratory Rate 16 16 16 Blood Pressure Blood Pressure [Right Arm] 94/56 L 110/58 L Pulse Oximetry 92 92 90 Oxygen Delivery Method Nasal Cannula Nasal Cannula OxyMask Oxygen Flow Rate 1 1 1 03/25/25 23:00 03/26/25 02:13 03/26/25 08:25 Temperature 96.6 F L 96.6 F L Pulse Rate Pulse Rate [Right Pulse Oximeter] 94 93 Respiratory Rate 16 16 16 Blood Pressure Blood Pressure [Right Arm] 103/52 L 100/53 L Pulse Oximetry 94 91 85 L Oxygen Delivery Method OxyMask OxyMask Room Air OxyMask Oxygen Flow Rate 1 1 03/26/25 08:25 03/26/25 08:27 Temperature 96.6 F L Pulse Rate Pulse Rate [Right Pulse Oximeter] 93 93 Respiratory Rate 16 16 Blood Pressure Blood Pressure [Right Arm] 100/53 L Pulse Oximetry 91 Oxygen Delivery Method OxyMask Oxygen Flow Rate 1 Assessment and Plan Assessment and plan (1) Status post reverse arthroplasty of left shoulder: Problem details: Left reverse shoulder arthroplasty, left long head of biceps open tenotomy (03/25/25, Dr. Smallwood) Status: Acute (2) Postoperative hypoxia: Problem details: Was hypoxic prior to surgery and received supplemental oxygen through the operation and in recovery. Remains hypoxic requiring 3 L per nasal cannula to maintain O2 sats in the upper 80s to low 90s. Likely some component is chronic due to COPD and some acute due to surgery/anesthesia. Continue to evaluate. Status: Acute (3) Chronic anemia: Problem details: Preop hemoglobin was 10. After hip surgery in December hemoglobin dropped to 7.4 and she received 1 unit of blood transfusion Status: Acute (4) COPD (chronic obstructive pulmonary disease): Problem details: Due to cigarette smoking. Not on chronic oxygen. Status: Acute (5) Alcohol use disorder: Problem details: Currently in remission after hospital stay and rehab in SNF. Status: Acute (6) Impaired mobility: Problem details: Mobility impairment due to ongoing recovery from left intertrochanteric fracture now 2 months out from ORIF and left reverse shoulder arthroplasty March 25 2025. Ongoing therapy planned Status: Acute (7) Severe alcohol withdrawal delirium: Problem details: Hospitalization in December 2024 associated with severe alcohol withdrawal requiring propofol drip and intubation. No alcohol or cannabis since that time as she has been in rehab. Status: Acute Plan - Complete 23 hour perioperative antibiotics. - PT/OT consult for education and assistance. - Social work consult for discharge planning - Prescribed analgesics as needed - with her low oxygen saturation, which is likely baseline due to COPD, would avoid frequent narcotic administration - no sooner than every 4-6 hours. - DVT prophylaxis: walking and SCDs - Anticipation is for discharge to [facility] today if the patient remains medically stable, pain is controlled, and they are safe with mobilization. I understand safety with mobilization is difficult at this time as patient is unable to bear weight with walker through the left upper extremity, and is still recovering from left femur IM nail. She still has a long road to recovery.
[2025-03-26] MEDS: MULTIVITAMIN/MINERALS 1 TABLET 1 TAB PO (09:02)
[2025-03-26] MEDS: FOLIC ACID 1 MG TABLET PO (09:03)
[2025-03-26] MEDS: SENNOSIDES 1 TAB TABLET 2 TAB PO (09:03)
--- NOTE | 2025-03-26 09:32 | P.DS_ITS ---
DS: Providers Provider Date Seen: 03/26/25 Date of admission: 03/25/25 06:57 Primary care physician: Becca Troy MD Admitting Clinician: Jamie Smallwood MD Attending Physician on discharge: Jamie Smallwood MD Date of Discharge: 03/26/25 DS: Diagnosis Discharge Diagnosis (1) Status post reverse arthroplasty of left shoulder: Status: Acute Problem details: Left reverse shoulder arthroplasty, left long head of biceps open tenotomy (03/25/25, Dr. Smallwood) (2) Postoperative hypoxia: Status: Acute Problem details: Was hypoxic prior to surgery and received supplemental oxygen through the operation and in recovery. Remains hypoxic requiring 2 L per nasal cannula to maintain O2 sats in the upper 80s to low 90s. This is thought to be a chronic hypoxia related to COPD. She is discharged on supplemental oxygen to maintain oxygen saturations above 88%. Recommend outpatient evaluation to optimize COPD medications. (3) Impaired mobility: Status: Acute Problem details: Mobility impairment due to ongoing recovery from left intertrochanteric fracture now 2 months out from ORIF and left reverse shoulder arthroplasty March 25 2025. Ongoing therapy planned. (4) COPD (chronic obstructive pulmonary disease): Status: Acute Problem details: Due to cigarette smoking. Recommend outpatient evaluation to optimize medication for COPD management. Probably needs scheduled LAMA plus LABA plus p.r.n. DARLINE. Has normal eosinophils so probably does not need inhaled corticosteroid. DS: Summary Hospital Course Hospital Course: 74-year-old female admitted to the hospital for left reverse total shoulder arthroplasty. Procedure performed on the day of admission by Dr. Smallwood. There were no operative complications. Prior to surgery she was noted to be hypoxic and she remained hypoxic through her hospital stay. This was thought likely to be a chronic problem for her secondary to COPD. We recommended outpatient chronic oxygen therapy. Consider outpatient evaluation for optimizing COPD medications. Time Spent with Patient Time attestation: Total time spent providing and/or coordinating discharge services: 40 minutes Time spent: Greater than 30 minutes Exam Narrative: Exam Narrative: She is alert appears in no distress. Breathing is unlabored on 2 L per nasal cannula. Respirations are diminished with fine bibasilar crackles. No wheezing. Cardiovascular: S1, S2, regular rate and rhythm. Abdomen is soft without tenderness or mass. Motion and sensation has returned to her left hand and wrist. Const: Vital Signs, click to edit/add: Vital Signs - 24 hr 03/25/25 09:45 03/25/25 10:00 03/25/25 10:30 Temperature Pulse Rate 86 81 80 Pulse Rate [Right Pulse Oximeter] Respiratory Rate 18 16 18 Blood Pressure 106/66 98/69 98/60 Blood Pressure [Ri ght Arm] Pulse Oximetry 96 96 96 Oxygen Delivery Me thod Nasal Cannula Nasal Cannula Nasal Cannula Oxygen Flow Rate 2 2 2 03/25/25 11:00 03/25/25 14:35 03/25/25 14:40 Temperature 97.2 F L Pulse Rate 76 110 H 99 Pulse Rate [Right Pulse Oximeter] Respiratory Rate 16 18 19 Blood Pressure 105/64 115/86 117/75 Blood Pressure [Ri ght Arm] Pulse Oximetry 96 67 L 90 Oxygen Delivery Me thod Nasal Cannula OxyMask Oxygen Flow Rate 2 15 10 03/25/25 14:45 03/25/25 14:50 03/25/25 14:55 Temperature Pulse Rate 98 97 97 Pulse Rate [Right Pulse Oximeter] Respiratory Rate 16 13 14 Blood Pressure 104/63 104/53 L 97/55 L Blood Pressure [Ri ght Arm] Pulse Oximetry 95 94 92 Oxygen Delivery Me thod Nasal Cannula Oxygen Flow Rate 6 4 3 03/25/25 15:00 03/25/25 15:05 03/25/25 15:09 Temperature 97.3 F L Pulse Rate 99 93 93 Pulse Rate [Right Pulse Oximeter] Respiratory Rate 19 13 14 Blood Pressure 92/56 L 94/59 L 92/55 L Blood Pressure [Ri ght Arm] Pulse Oximetry 90 88 89 Oxygen Delivery Me thod Oxygen Flow Rate 5 03/25/25 15:17 03/25/25 15:30 03/25/25 15:45 Temperature 96.5 F L 98.1 F 97.6 F Pulse Rate Pulse Rate [Right Pulse Oximeter] 88 87 92 Respiratory Rate 16 16 16 Blood Pressure Blood Pressure [Ri ght Arm] 93/76 96/55 L 98/56 L Pulse Oximetry 88 90 88 Oxygen Delivery Me thod Nasal Cannula Nasal Cannula Nasal Cannula Oxygen Flow Rate 4 3 3 03/25/25 16:00 03/25/25 16:15 03/25/25 16:45 Temperature 97.6 F Pulse Rate Pulse Rate [Right Pulse Oximeter] 83 84 83 Respiratory Rate 16 18 16 Blood Pressure Blood Pressure [Ri ght Arm] 97/55 L 92/62 98/52 L Pulse Oximetry 88 88 89 Oxygen Delivery Me thod Nasal Cannula Nasal Cannula Nasal Cannula Oxygen Flow Rate 4 2 1 03/25/25 17:15 03/25/25 18:00 03/25/25 19:00 Temperature 98.3 F Pulse Rate Pulse Rate [Right Pulse Oximeter] 88 96 106 H Respiratory Rate 16 16 16 Blood Pressure Blood Pressure [Ri ght Arm] 114/55 L 115/70 104/47 L Pulse Oximetry 87 L 92 91 Oxygen Delivery Me thod Nasal Cannula Nasal Cannula Nasal Cannula Oxygen Flow Rate 1 1 1 03/25/25 20:00 03/25/25 21:00 03/25/25 23:00 Temperature Pulse Rate Pulse Rate [Right Pulse Oximeter] 97 108 H Respiratory Rate 16 16 16 Blood Pressure Blood Pressure [Ri ght Arm] 94/56 L 110/58 L Pulse Oximetry 92 92 90 Oxygen Delivery Me thod Nasal Cannula Nasal Cannula OxyMask Oxygen Flow Rate 1 1 1 03/25/25 23:00 03/26/25 02:13 03/26/25 08:25 Temperature 96.6 F L 96.6 F L Pulse Rate Pulse Rate [Right Pulse Oximeter] 94 93 Respiratory Rate 16 16 16 Blood Pressure Blood Pressure [Ri ght Arm] 103/52 L 100/53 L Pulse Oximetry 94 91 85 L Oxygen Delivery Me thod OxyMask OxyMask Room Air OxyMask Oxygen Flow Rate 1 1 03/26/25 08:25 03/26/25 08:27 Temperature 96.6 F L Pulse Rate Pulse Rate [Right Pulse Oximeter] 93 93 Respiratory Rate 16 16 Blood Pressure Blood Pressure [Ri ght Arm] 100/53 L Pulse Oximetry 91 Oxygen Delivery Me thod OxyMask Oxygen Flow Rate 1 Documenting provider has reviewed patient's vital signs: yes DS: Data Data Completed and Pending Completed studies during hospitalization: Procedures Labs on day of discharge: Labs from last 24 hours 03/25/25 16:38 WBC 11.11 H RBC 3.48 L Hgb 9.7 L Hct 31.7 L MCV 91 MCH 28 MCHC 31 L RDW Coeff of Dontae 16.2 H Plt Count 199 Neut % (Auto) 91.5 H Lymph % (Auto) 5.0 L Bailey % (Auto) 2.3 Eos % (Auto) 0.2 Baso % (Auto) 0.4 Neut # (Auto) 10.20 H Lymph # (Auto) 0.60 L Bailey # (Auto) 0.30 Eos # (Auto) 0.00 Baso # (Auto) 0.00 Abs Immat Gran (auto) 0.10 Imm/Tot Granulo (auto) 0.6 VBG pH 7.296 L VBG pCO2 55 H VBG pO2 < 30.1 VBG HCO3 27 Sodium 135 Potassium 4.6 Chloride 104 Carbon Dioxide 27 Anion Gap 4 L BUN 15 Creatinine 0.8 Estimated Creat Clear 46.54 Estimated GFR 76 Glucose 121 H Calcium 8.8 NT-Pro-B Natriuret Pep 293 Discharge Plan Discharge Disposition: [facility] Date of Admission: 03/25/25 06:57 Attending Provider on Discharge: Gennaro Thompson Consulting Providers: Steffanie Painting; Sharon Hogan; Manav Rene; Juaquin Bird; Louie Stern; Kaylee Warren; Omaira Robertson; Krysten Willson; Ranjeet Jo; Sanjana Montoya; Joyce Roach; Tanner Adame; Gennaro Thompson; Wayne Salazar; Sathya Valdez; Philipp Ortega; Grace Reyes; Sean Del Cid; Yvette Romero; Janny Harris V; Marilin Rawls; Fifi Carlos; Alan Mann; Lorena Garcia; Montse Encarnacion; Earline Delgado; Mk Nuñez S; Laurie North; Samantha North; Lewis Casas; Elieser Roy; Jimenez Rudd; Austin Hoffmann; Marlin Contreras; Michelle Swartz; Lourdes Byers; Rigoberto Gamez Primary Care Provider: Becca Troy Discharge Medications: New sennosides-docusate sodium [Senna-S] 8.6-50 mg tablet 1 - 4 tab-cap PO BID PRN (Reason: constipation) Qty: 60 0RF Rx Instructions: Hold medication if experiencing loose stools. oxycodone 5 mg tablet 2.5 - 5 mg PO Q4-6H MDD 6 PRN (Reason: pain) Qty: 30 0RF Rx Instructions: Take as needed for postop pain: 2.5mg mild pain, 5mg moderate-severe pain; wean as tolerated. ipratropium-albuterol 0.5 mg-3 mg(2.5 mg base)/3 mL Solution For Nebulization 3 ml inhalation TID Qty: 180 0RF acetaminophen 500 mg capsule 500 - 1,000 mg PO Q6-8H MDD 3000mg PRNQty: 100 0RF Continued multivitamin [Multiple Vitamins] Tablet 1 tab PO QDAY folic acid 1 mg tablet 1 mg PO QDAY mirtazapine 15 mg tablet 15 mg PO QHS clomipramine 50 mg capsule 50 mg PO BID lidocaine 4 % adhesive patch,medicated 1 patch topical DAILY fluticasone propion-salmeterol [Advair Diskus] 100-50 mcg/dose blister with device 1 inh inhalation BID Discontinued acetaminophen [Tylenol Extra Strength] 500 mg tablet 500 mg PO TID Patient Comments: PLUS TID PRN oxycodone 5 mg tablet 2.5 mg PO Q6H PRN Discharge Orders: Discharge Order (Routine); Ordered 03/26/25 Ordered By: Gennrao Thompson Activity Level: Activity as Tolerated and Other Activity Restrictions: Wound: ? Remove surgical dressing in 1 week. Remove dressing sooner if integrity is in question. ? No immersing wound in water; showering okay with bandage in place; light scrub with your hand and body soap, rinse, dab dry. After the bandage is removed, the same shower instructions apply. ? Sutures are under the skin, will dissolve over time; allow surgical glue to come off naturally; do not scrub the wound or apply ointments/lotions. ? Call our office with any redness that streaks, excessive drainage from the wound, or wound gapping. Ice/Elevate: ? Ice as needed for swelling and discomfort, typically 20min on/20min off. It is okay if you fall asleep with ice in place if there is a barrier between you and the ice to prevent skin harm. Elevate hand/forearm above the heart via propping on pillows. Motion/Exercise: ? Walk as tolerated. ? No Weight bear operative extremity ? Range of motion of any joint (including fingers) out of splint 10+ times per day as tolerated (Elbow, forearm, wrist, digits). Shoulder pendulums are encouraged. ? Sling to be worn most of time: May remove for showering, ROM as noted above, pendulums, and if sedentary in a safe / stable environment - it is to be a reminder not to reach for things or rotate the shoulder. ? No lifting greater than coffee cup in weight, operative extremity ? PT/OT exercises as explained/prescribed. Pain Medications: ? Oral narcotic as prescribed. Wean as tolerated. Additional acetaminophen and ibuprofen as needed. Driving: ? Do not drive while taking narcotic pain medication. ? Do not drive with the sling on. ? If driving, do not use operative extremity to control the steering wheel. Dental: ? No elective dental work for 3 months post-op. If there is an urgent/emergent dental need, contact our office for an antibiotic prescription. Smoking/Alcohol: ? Do not smoke; do no drink alcohol especially when taking postoperative oral narcotic medication. Seek Care from your Primary Care Provider if you experience the following issues in the postoperative phase and beyond: ? Bacterial infections such as: pneumonia, bacterial skin infection (cellulitis), UTI, high fever, chills unrelated to the operative body part - call your primary care physician urgently for treatment in hopes to protect your health and the metal implant(s). Referrals: ? PT, OT per patient preference ? evaluate & treat reverse total shoulder arthroplasty protocol (PROM, elbow motion, pendulums, ADLs) Vaccines: ? No vaccines until 4-6 weeks postop Follow up: ? PA-C visit in 1-2 weeks ? Ortho surgeon follow-up in 6 weeks; repeat radiographs three views operative shoulder If there are any acute concerns regarding your surgery, please call our orthopedic clinic ([phone]) Discharge Diet: Regular Follow Up Appointments: Becca Troy MD [Primary Care Provider, [facility]] Forms: Patient Belongings, MyHealth Info Instructions Admit to: SNF Discharge Potential: Good Length of Stay: <30 days Can use facility standing orders?: Yes Code Status: Full Code TEDs: N/A Rehab Potential: Good Therapy: Physical Therapy and Occupational Therapy Therapy Orders: Evaluate and Treat Oxygen: Yes Oxygen Delivery Method: Nasal Cannula Oxygen Flow Rate: 1-2 liter/NC to keep oxygen saturations above 88% Urinary Catheter: No Lab Orders: CBC and BMP one week Orders are good >30 days: Yes Signature: Sharon Hogan MD
--- NOTE | 2025-03-26 10:27 | PC.SOCIAL ---
Discharge planing: take off worker connected with RADHA Bustos at [facility] #[phone] and explained that we were trying to get a hold of nursing staff at [facility] with no luck. Ankita stated that she could do the nurse to nurse report and this worker gave her number to the charge nurse on duty. take off worker also faxed over the discharge orders for the pt to fax number #[phone] with the fax not going through due to the faxes being abandoned after three attempts. This rn social work then secure emailed the discharge order to Ankita Dior at [email or web address]. [facility] plans to pick the pt up at 11:00am for transport. Social work to follow-up as needed.
== END 2025-03-26 11:15 | DRG 483 ==
PROVIDERS: Family Medicine; Admitting Provider Orthopaedic Surgery Sports Medicine; PCP Family Medicine; Visit Provider Orthopaedic Surgery Sports Medicine
PROC: 0RRJ0JZ Replacement of Right Shoulder Joint with Synthetic Substitute, Open Approach (ICD-10-PCS; CPT 23472; principal; 2025-03-25 10:45)
DX: S42.242A 4-part fracture of surgical neck of left humerus, initial encounter for closed fracture (principal); M75.22 Bicipital tendinitis, left shoulder; G89.18 Other acute postprocedural pain; R09.02 Hypoxemia; F10.21 Alcohol dependence, in remission; J44.9 Chronic obstructive pulmonary disease, unspecified; K21.9 Gastro-esophageal reflux disease without esophagitis; D64.9 Anemia, unspecified; Z74.09 Other reduced mobility; Z90.5 Acquired absence of kidney
CPT/HCPCS: 01638; 36415; 64415; 71045; 73030; 76942; 80048; 82803; 83880; 85025; 94761; 97110; 97166; 97535; 99100; A9153; A9270; C1713; C1776; J0330; J0690; J1100; J2250; J2371; J2405; J2704; J2795; J3010; J7120

== ENCOUNTER 2025-05-08 09:29 | Day surgery (SDC) | payer MEDICARE, SELFPAY ==
[2025-05-08] VITALS (20 sets, daily range): BP systolic 84–117; BP diastolic 52–96; PULSE 84–97; RESP 11–20; TEMP 36.1–36.7; O2SAT 87–96; BMI 23.1
[2025-05-08] MEDS: OXYCODONE (CR) 10 MG TAB.ER.12H PO (10:03)
[2025-05-08] MEDS: ACETAMINOPHEN 500 MG TABLET 1000 MG PO ×2 (10:03→18:02)
[2025-05-08] MEDS: LACTATED RINGERS 1000 ML 1,000 ML 100 ML IV ×2 (10:03→15:56)
[2025-05-08] MEDS: SODIUM CHLORIDE 0.9 % (FLUSH) 10 ML SYRINGE IVF (10:04)
--- NOTE | 2025-05-08 12:34 | W.PM.H&PU ---
History & Physical Update History & Physical Update H&P Reviewed and patient assessed: No changes noted
[2025-05-08] MEDS: TRANEXAMIC ACID 100 MG/ML INJ 1000 MG IV (12:45)
--- NOTE | 2025-05-08 13:04 | W.PM.NB ---
Nerve Block Nerve Block Time Seen by Provider: 12:26 Date Seen: 05/08/25 Type of block requested by surgeon for post-operative analgesia: supraclavicular Side: left Time out performed: Yes Verification of patient name: Yes Verification of date of : Yes Site marking: site marked Name of person performing procedure: Marcial Continuous monitoring Was continuous monitoring of O2 sat, B/P, medical coordinator pesticide use, recorded every 15 minutes?: Yes Procedure Checklist: sterile prep, needles and gloves Ultrasound guided. Images saved: Yes Medications given in 5ml increments after negative aspiration: Ropivicaine %: 0.5 mL: 20 Needle gauge: 22 Precedex (mcg): 25 Patient tolerated procedure well: Yes Block Charges Block Charge (with Pro Fee): Brachial Plexus Use of Ultrasound Machine for Block: Yes- US Guidance/pain block
--- NOTE | 2025-05-08 13:05 | P.ANES_ITS ---
Anesthesia Charges Start Date/Time Anesthesia Start Date: 05/08/25 Anesthesia Start Time: 12:05 Stop Date/Time Anesthesia Stop Date: 05/08/25 Anesthesia Stop Time: 16:16 Summary Extremes of Age - Over 70 or under 1: MDA Coding CPT Codes CPT Codes: ANESTH SHOULDER REPLACEMENT - 05116 ([id number]) P3 - PATIENT W/SEVERE SYS DISEASE, QK - FREIGHT CHECKER 2-4 CNCRNT ANES PROC, QX - PHOTOVOLTAIC TESTING TECHNICIAN SVC W/ MD MED DIRECTION Additional Codes: Summary - Extremes of Age - Over 70 or under 1: MDA ([id number])
--- NOTE | 2025-05-08 13:05 | W.ANESCHARGE ---
Anesthesia Charges Start Date/Time Anesthesia Start Date: 05/08/25 Anesthesia Start Time: 12:05 Stop Date/Time Anesthesia Stop Date: 05/08/25 Anesthesia Stop Time: 16:16 Summary Extremes of Age - Over 70 or under 1: MDA Coding CPT Codes CPT Codes: ANESTH SHOULDER REPLACEMENT - 76720 ([id number]) P3 - PATIENT W/SEVERE SYS DISEASE, QK - MANAGER CLIENT 2-4 CNCRNT ANES PROC, QX - PURCHASING OFFICER SVC W/ MD MED DIRECTION Additional Codes: Summary - Extremes of Age - Over 70 or under 1: MDA ([id number])
--- NOTE | 2025-05-08 14:56 | P.IMCN_ITS ---
Date of Consult Patient: Other Consult date: 05/08/25 Requesting Physician: Orthopedics Primary Care Provider: Becca Troy MD Consult Narrative Reason for consult: Medical management Narrative: Jessica Burdick is a 74 year old female past medical history significant for COPD, hyponatremia, chronic anemia, alcohol use, malnutrition, working encephalopathy is POD#0 s/p left total shoulder arthroplasty, Dr. Albert. Postoperatively, patient reports feeling pretty good. Pain is increasing. Denies headache or dizziness. Tolerating orals without nausea vomiting. Intraoperatively, I am told patient was on pressors. She is hypotensive currently with SBP just over 100. Not symptomatic. Oxygen saturations are currently 92% on 1 L. she was previously on 5 L in Recovery. She had issues with hypoxia and hypotension during her previous surgery as well. There have been no perioperative complications or nursing concerns reported other than stated as above. Estimated total blood loss documented as 250ml. Updated and reviewed the active medical problems, past medical history, past surgical history, social history, allergies and medications in our electronic EMR. Review of Systems Narrative: REVIEW OF SYSTEMS: Complete review of systems performed and negative unless otherwise stated in HPI or below. [facility] Medical History (Updated 05/08/25 @ 19:57 by Kaylee Warren PA-C) Alcohol use disorder ?F10.90 - Alcohol use, unspecified, uncomplicated (ICD-10) Severe alcohol withdrawal delirium ?F10.931 - Alcohol use, unspecified with withdrawal delirium (ICD-10) Impaired mobility ?Z74.09 - Other reduced mobility (ICD-10) Sedentary lifestyle ?Z91.89 - Other specified personal risk factors, not elsewhere classified (ICD-10) Malnutrition ?E46 - Unspecified protein-calorie malnutrition (ICD-10) Cannabis use disorder ?F12.90 - Cannabis use, unspecified, uncomplicated (ICD-10) Acute on chronic blood loss anemia ?D62 - Acute posthemorrhagic anemia (ICD-10) Kidney stone ?N20.0 - Calculus of kidney (ICD-10) GERD (gastroesophageal reflux disease) ?K21.9 - Gastro-esophageal reflux disease without esophagitis (ICD-10) Depression ?F32.A - Depression, unspecified (ICD-10) Septic shock due to Escherichia coli ?A41.51 - Sepsis due to Escherichia coli [E. coli] (ICD-10) ?R65.21 - Severe sepsis with septic shock (ICD-10) Chronic anemia ?D64.9 - Anemia, unspecified (ICD-10) Hyponatremia ?E87.1 - Hypo-osmolality and hyponatremia (ICD-10) Acute renal failure due to urinary obstruction ?N17.9 - Acute kidney failure, unspecified (ICD-10) ?N13.9 - Obstructive and reflux uropathy, unspecified (ICD-10) Meniere disease ?H81.09 - Meniere's disease, unspecified ear (ICD-10) COPD (chronic obstructive pulmonary disease) ?J44.9 - Chronic obstructive pulmonary disease, unspecified (ICD-10) H/O traumatic brain injury (2006) ?Z87.820 - Personal history of traumatic brain injury (ICD-10) DIC (disseminated intravascular coagulation) ?D65 - Disseminated intravascular coagulation [defibrination syndrome] (ICD- 10) Surgical History (Updated 05/08/25 @ 19:56 by Kaylee Warren PA-C) Status post reverse arthroplasty of left shoulder (03/25/25) ?Z96.612 - Presence of left artificial shoulder joint (ICD-10) History of kidney donation ?Z90.5 - Acquired absence of kidney (ICD-10) S/P ORIF (open reduction internal fixation) fracture (09/04/07) ?Z98.890 - Other specified postprocedural states (ICD-10) ?Z87.81 - Personal history of (healed) traumatic fracture (ICD-10) History of surgery on lower extremity (01/14/25) ?Z98.890 - Other specified postprocedural states (ICD-10) H/O cystoscopy ?Z98.890 - Other specified postprocedural states (ICD-10) S/P ectopic ?Z87.59 - Personal history of other complications of , childbirth and the puerperium (ICD-10) Kidney donor ?Z52.4 - Kidney donor (ICD-10) Family History Other Diabetes Wilmer's granulomatosis Social History Narrative: Lived with her (Ross) in [place] prior to her hip and humerus fractures in December 2024; now at [facility]. He would be medical decision maker if needed. Former cigarette smoker, previously smoked marijuana daily and drink alcohol heavily. No marijuana or alcohol for 2 months. What is your current living situation?: I presently have a place to live Problems where you live: no known problems Problems where you live details: na In the past 12 months, utilities in danger of being shut off: no In past 12 months, lack of transportation kept you from medical appts, meetings, work, or getting things needed for daily living: no In the past 12 mos, have been you worried that your food would run out before you had money to buy more?: never true In the past 12 mos, the food you bought just didn't last and you didn't have money to buy more?: never true Smoking Status: Former smoker What tobacco products do you use: cigarettes Smoking packs per day: 0.8 Smoking cigarettes per day: 16.0 Years smoked: 50 Smoking pack-years: 40.00 Smoking quit date/years: >15 years ago Do you use any of these nicotine containing products: None Second hand tobacco smoke exposure: No How often do you have a drink containing alcohol: never How many standard drinks containing alcohol do you have on a typical day: 3 or 4 AUDIT-C Alcohol total score: 1 Non-prescribed substance use: marijuana (any form) Caffeine: Yes How often does anyone, including family, friends and others, physically hurt you : never How often does anyone, including family, friends and others, insult or talk down to you: never How often does anyone, including family, friends and others, threaten you with harm: never How often does anyone, including family, friends and others, scream or curse at you: never service: No Meds Home Medications and Allergies Home Medications ?Medication ?Instructions ?Recorded ?Confirmed ?Type clomipramine 50 mg capsule 50 mg PO BID 01/14/2505/08 History folic acid 1 mg tablet 1 mg PO DAILY alcohol depend ence 03/12/25 05/08/25 History withdrawl mirtazapine 15 mg tablet 15 mg PO HS appetite stimula nt 03/12/25 05/08/25 History multivitamin (Multiple Vitamins 1 tab PO DAILY 5 05/08/25 History tablet) fluticasone 100 mcg-salmeterol 50 1 inh inhalation BID 03/25/25 05/08/25 History mcg/dose blistr powdr for inhalation (Advair Diskus) lidocaine 4 % topical patch 1 patch topical DAILY 03/0205/08/25 History acetaminophen 500 mg capsule 500 - 1,000 mg (1 - 2 x 5 00 mg) PO 03/26/25 05/08/25 Rx Q6-8H PRN #100 caps ipratropium 0.5 mg-albuterol 3 mg 3 ml inhalation TID #180 mL 03/26/25 05/08/25 Rx (2.5 mg base)/3 mL nebulization soln oxycodone 5 mg tablet 2.5 - 5 mg (0.5 - 1 x 5 mg) PO 03/26/25 05/08/25 Rx Q4-6H PRN pain #30 tabs Allergies Allergy/AdvReac Type Severity Reaction Status Date / Time codeine Allergy Mild Vomiting Verified 05/08/25 09:42 hydrocodone Allergy Mild Anxiety Verified 05/08/25 09:42 Penicillins Allergy Mild Verified 05/08/25 09:42 Exam Narrative: Exam Narrative: PHYSICAL EXAM General: Pleasant, conversant, NAD HEENT: Normocephalic, atraumatic, sclera white, EOMI, oral mucosa moist Cardiovascular: RRR, S1S2. No pitting edema Pulmonary: CTA bilaterally without rhonchi, rales, expiratory wheezes. No dyspnea Neurological: Alert, answering questions appropriately, cranial nerves intact, no focal findings Extremities: No gross joint deformity or swelling. bruising at the joint noted. Postoperative dressing in place, dry, Immobilizer in place. N eurovascularly intact Skin: Warm, dry. Const: Vital Signs, click to edit/add: Vital Signs - 24 hr 05/08/25 10:34 Temperature 97.4 F L Pulse Rate 86 Respiratory Rate 16 Blood Pressure 117/56 L Pulse Oximetry 91 Oxygen Delivery Me thod Room Air Assessment and Plan Assessment and plan (1) Status post reverse arthroplasty of left shoulder: Problem comment: -POD#0 s/p L BREANA, Dr. Albert, 05/08/25. Specifics of procedure not yet available. -previous Left reverse shoulder arthroplasty, left long head of biceps open tenotomy (03/25/25, Dr. Smallwood) -perioperative management including pain management and anticoagulation per Orthopedic surgery -encourage postoperative pulmonary hygiene - recent active smoker, COPD -PT OT consults -plan to discharge back to [facility] Status: Acute (2) Postoperative hypotension: Problem comment: -noted with previous surgery as well -pressors intraoperatively -stable, not symptomatic at rest, gentle NS boluses as needed Status: Acute (3) Postoperative hypoxia: Problem comment: -noted during previous surgery as well -thought to be a chronic hypoxia related to COPD. Previously discharged on supplemental oxygen to maintain oxygen saturations above 88%. Recommended outpatient evaluation to optimize COPD medications. -maintain O2 saturations 88-90% Status: Acute (4) COPD (chronic obstructive pulmonary disease): Problem comment: - encourage postoperative pulmonary hygiene, incentive spirometry - RT to assist Status: Acute (5) Chronic anemia: Problem comment: -Preop hemoglobin is 11.2. EBL 250 mL. Recheck hemoglobin in a.m. Status: Acute (6) Alcohol use disorder: Problem comment: - hospitalization in December 2024 associated with severe alcohol withdrawal requiring propofol drip and intubation. No alcohol or cannabis use since that time as she has been in SNF. Status: Acute Total Time Spent Total Time Spent: Today I spent 55 minutes seeing the patient, reviewing Expanse and EPIC notes/diagnostics, discussing the care plan with our care time that includes social work, PT/OT, pharmacy, RT, assisted and documenting my impressions and plan in the medical record.
--- NOTE | 2025-05-08 14:58 | P.ORPRC_ITS ---
Procedure Note Date of procedure: 05/08/25 Procedure: PREOPERATIVE DIAGNOSIS: 1. Left shoulder osteoarthrosis, primary, severe with poor rotator quality/integrity 2. Left long head of the biceps tendinopathy and tenosynovitis POSTOPERATIVE DIAGNOSIS: 1. Left shoulder instability after reverse shoulder arthroplasty for proximal humerus malunion PROCEDURE: 1. Left shoulder instability after reverse shoulder arthroplasty for proximal humerus malunion - modifier 22 for this revision shoulder arthroplasty procedure. Although metallic components were not exchanged for the humerus or glenoid, the instability and its chronic unstable state resulted in this being extremely difficult open reduction of this left shoulder with a need for extensive dissection and scar tissue mobilization to achieve the appropriate reduction. There was significant increased risk given all the scar tissue to nerve or vascular injury. This required increased 40% added time and difficulty for this case accordingly as well as increased number of assistants to help complete the procedure safely. SURGEON: Jamie Smallwood MD. SUPERVISOR ELECTRONICS PROCESSING: Tesfaye AU; Tanner Mclain PA-C - Of note, multiple skilled assistants were critical for this case to aid in patient positioning, tissue retraction, limb manipulation/positioning, retraction for glenoid exposure, which was challenging, awareness and protection of critical structures, and closure. ANESTHESIA: General plus supraclavicular block EBL: 250 ml IMPLANTS: DJ0/Enovics surgical vitamin E 32 semi-constrained poly small socket insert (Glenoid and humeral components were otherwise maintained without exchange or revision.) COMPLICATIONS: None evident INDICATIONS: The patient is a pleasant 74-year-old female who sustained a left proximal humerus fracture 01/14/2025. She was set for a reverse shoulder arthroplasty in the acute timing, but unfortunately she had alcohol withdrawal and delirium tremens resulted in significant illness requiring intubation and therefore transfer to another medical facility. Nothing was done for the shoulder. She returned to my clinic 2 months later with ongoing pain from a left proximal humerus malunion and subsequently underwent a reverse shoulder arthroplasty on 03/25/2025. At the 6 week follow-up, radiographs revealed an anterior dislocation to the left shoulder. No periprosthetic fractures or hardware complications otherwise, but instability noted. Given the ongoing instability of this left shoulder, closed, possible open reduction of the left reverse shoulder arthroplasty is indicated. DESCRIPTION OF PROCEDURE: Following a thorough discussion of risks, benefits, and alternatives, consent was obtained and the left shoulder was marked. The patient was brought to the operating room and placed supine on the operating table. Induction of anesthesia was undertaken. 1 g IV Ancef and 1 g tranexamic acid was administered within 1 hr of incision preoperatively. Appropriate time-out was performed identifying proper patient, site, and procedure. The operative extremity was prepped and draped in the appropriate sterile fashion using ChloraPrep after the patient was positioned in the lazy beach chair position with head in neutral alignment and all bony prominences well padded. Initially, a closed reduction was attempted after anesthesia administered. This was unsuccessful. Thus, decision was made to perform an open reduction. The previous scar was incised sharply with a scalpel targeting the deltopectoral interval. The original surgery found it difficult to identify the deltopectoral interval given the significant trauma to the anterior tissues from this proximal humerus fracture malalignment. Therefore, today the deltoid was essentially split longitudinally through some of the anterior fibers. The majority the deltoid was elevated from the humerus, but it was difficult to distinguish a bursal layer from the deltoid. We were able to get a little bit more of a delineation from the subacromial space. Scar tissue was dense and thick throughout the entire shoulder region. This included significant scar tissue on the proximal humerus making it difficult to achieve any excursion of the proximal humerus. As the humeral component was overriding the coracoid, it was difficult to identify the coracoid clearly and therefore also difficult to identify the conjoined tendon, which was also difficult during the index procedure. No appreciable subscapularis could be identified, again consistent with the index procedure. After dividing the anterior deltoid longitudinally as well as any scar/capsular tissue, and after identifying the humeral component, we mobilized the scar tissue around the proximal humerus with a combination of Bovie cautery and Mohr elevator. Throughout the case, we were cautious of the axillary nerve and its expected anatomy. We did not encounter it nor have any twitching of the deltoid throughout the dissection or procedure. We were able to remove the previous polyethylene component by drilling a small hole and utilizing a 4.0 cancellous screw to allow it to back out. We then continued our dissection proximally around the humerus as well as circumferentially around the glenosphere. Scar tissue was identified and excised primarily with Bovie cautery. The capsule was released along the anterior and inferior portions of the glenoid cautiously. The glenosphere was inspected and found to be intact and healthy appearing. *Of note, there was a small amount of fluid encountered within the joint space, but no purulence, foul odor, or other suspicion of infection encountered. The tissues appeared healthy surrounding the implants. The humerus was retracted anteriorly. The humeral component had improved mobility after tissue dissection, and a general sense of mobilizing this showed that no increased polyethylene thickness could be applied. Likewise, a larger glenosphere would not allow reduction given how tight the tissues were. This is consistent with what was encountered on the index procedure. Thus, a small shell 32 semi constrained poly was opened and inserted onto the humeral component. A reduction was then performed and found to be still quite difficult given tightness of tissue. Ultimately, shoulder had to be extended, slight adducted, and slight internal rotation. With complete muscle relaxation we were able to finally achieve a safe reduction. Shoulder was placed through range of motion and found to be stable without readily dislocating. A 3 minute Betadine soak was performed followed by a thorough irrigation with normal saline.] The anterior capsule deltoid scar tissue was reapproximated with # 1 Stratafix. Subcutaneous and subcuticular closures performed with 2-0 Stratafix and 4-0 Monocryl, respectively. Hemostasis was found to be appropriate. A skilled certified physician's assistant was critical for this case to aid in patient positioning, tissue retraction, limb manipulation/positioning, retraction for glenoid exposure, which was challenging, awareness and protection of critical structures, and closure. * Again, 40% added time and difficulty for this case accordingly as well as increased number of assistants to help complete the procedure safely. Although metallic components were not exchanged for the humerus or glenoid, the instability and its chronic unstable state resulted in this being extremely difficult open reduction of this left shoulder with a need for extensive dissection and scar tissue mobilization to achieve the appropriate reduction. There was significant increased risk given all the scar tissue to nerve or vascular injury. PLAN: 1. Sling at all times for the operative upper extremity. 2. AROM of elbow, forearm, wrist, and digits as tolerated. 3. PT/OT consults for education and assistance. 4. Social consult for discharge planning. 5. 23 hr perioperative antibiotics. 6. Early ambulation, and SCDs for DVT prophylaxis. 7. Admit to the hospital for the above 8. Analgesics p.r.n.
--- NOTE | 2025-05-08 16:22 | P.ANES_ITS ---
Anesthesia Charges Start Date/Time Anesthesia Start Date: 05/08/25 Anesthesia Start Time: 12:05 Stop Date/Time Anesthesia Stop Date: 05/08/25 Anesthesia Stop Time: 16:16 Coding CPT Codes CPT Codes: ANESTH SHOULDER REPLACEMENT - 84609 ([id number]) P3 - PATIENT W/SEVERE SYS DISEASE, QK - PATENTED HOGSHEAD ASSEMBLER 2-4 CNCRNT ANES PROC, QX - PICK UP SVC W/ MD MED DIRECTION
--- NOTE | 2025-05-08 16:22 | W.ANESCHARGE ---
Anesthesia Charges Start Date/Time Anesthesia Start Date: 05/08/25 Anesthesia Start Time: 12:05 Stop Date/Time Anesthesia Stop Date: 05/08/25 Anesthesia Stop Time: 16:16 Coding CPT Codes CPT Codes: ANESTH SHOULDER REPLACEMENT - 65409 ([id number]) P3 - PATIENT W/SEVERE SYS DISEASE, QK - CAUSTIC ROOM OPERATOR 2-4 CNCRNT ANES PROC, QX - FIT MODEL SVC W/ MD MED DIRECTION
--- NOTE | 2025-05-08 16:57 | CRLHL7_ITS ---
For Patients: As a result of the Century Cures Act, medical imaging exams and procedure reports are released immediately into your electronic medical record. You may view this report before your referring provider. If you have questions, please contact your health care provider. Indication: Postprocedure Technique: Two views left shoulder Comparison: 05/03/2025 Findings/Impression: Hardware from a revised left shoulder arthroplasty is in satisfactory position. Bone alignment is normal. No sign of acute fracture. Postop changes are within normal limits. Dictated by Bjorn Garcia MD @ 05/08/2025 6:25:09 PM (Electronically Signed)
[2025-05-08] MEDS: CEFAZOLIN 1 GM in 0.9 % SODIUM CHLORIDE Mini-bag 100 ML IVPB (19:06)
[2025-05-08] MEDS: 0.9 % SODIUM CHLORIDE 250 ml 250 ML IV (21:46)
--- NOTE | 2025-05-08 22:50 | PC.NURSE ---
Medium size bruise noted next to surgical site
--- NOTE | 2025-05-09 00:07 | PC.NURSE ---
Patient was very pleasant and cooperative throughout shift. Left shoulder surgery. Surgical dressing dry and intact. Immobilizer in place, needs to stay on at all times. Moves 2 assist pivot from bed to wheelchair to toilet. NC 1.5L. A&Ox3. Uses call light appropriately. Call light within reach.
[2025-05-09] MEDS: ACETAMINOPHEN 500 MG TABLET 1000 MG PO ×2 (00:11→05:58)
[2025-05-09 00:12] VITALS: BP 108/59; PULSE 96; RESP 16; TEMP 36.6; O2SAT 92
[2025-05-09] MEDS: CEFAZOLIN 1 GM in 0.9 % SODIUM CHLORIDE Mini-bag 100 ML IVPB (03:39)
[2025-05-09 04:17] VITALS: BP 118/64; PULSE 92; RESP 20; TEMP 36.6; O2SAT 92
[2025-05-09] MEDS: LACTATED RINGERS 1000 ML 1,000 ML 75 ML IV (04:41)
[2025-05-09 05:49] LABS: HCO3 VBG 25 mmol/L (21-28); PCO2 VBG 45 mmHG (40-50); PO2 VBG 53.0 mmHG (25-47); pH VBG 7.355 (7.32-7.43)
--- NOTE | 2025-05-09 06:49 | PC.NURSE ---
End of shift [id number]: Pt AxOx3, cooperative, and pleasant with cares. Pt requiring 2L NC throughout the night with sats maintained between 88-92%. Shoulder remains in sling. Dressing remains CDI, bruising noted surrounding bandage. Active ice to the site. Pain to the shoulder is being managed with PRN medication, scheduled medication, and repositioning. 2A pivot to the bedside commode, transfer went okay. Pt denies nausea/SOB/CP. Tolerating diet and fluids well. LR running @ 75. Skin tear to the L buttock reported by patient, Pt reports it has been there for a week. Call light within reach.
[2025-05-09 07:50] LABS: Hematocrit* 25.3 % (33.0-51.0); Immature Granulocytes Abs Auto 0.01 K/uL (0.00-0.30); Immature Granulocytes Pct Auto 0.2 %; Lymphocytes Absolute Auto 1.44 K/uL (0.90-2.90); Mean Corpuscular HGB Conc 31 gm/dL (32-36); Mean Corpuscular Hemoglobin 27 pg (26-34); Mean Corpuscular Volume 86 fL (80-100); RDW Coefficient of Variation % 15.6 % (11.5-15.5); Red Blood Count* 2.94 m/uL (4.00-5.20); White Blood Count* 6.47 K/uL (4.50-11.00)
[2025-05-09 07:56] LABS: Hemoglobin* 7.8 gm/dL (12.0-16.0); Slide Review Reflex No
[2025-05-09 08:19] VITALS: BP 123/60; PULSE 94; RESP 18; TEMP 36.6; O2SAT 91
[2025-05-09] MEDS: SENNOSIDES 1 TAB TABLET 2 TAB PO (08:58)
--- NOTE | 2025-05-09 10:05 | PC.SOCIAL ---
Discharge planning: Called [facility] and informed RN pt will be returning today. Hospital nurse to call with nurse to nurse to Venessa at [phone]. Venessa transferred this aids social worker to Natty at [facility] to request van case picker. Left message and awaiting call back with case picker time. loft worker to send discharge orders to [facility] when completed.
--- NOTE | 2025-05-09 10:28 | PM.EN ---
Chart Event Note Date Seen: 05/09/25 Chart Event Note: Pat was followed by the hospitalist team during stay. She was at baseline on postop day 1, appropriate to discharge back to TCU care at [facility]. Intermittently requiring low-dose supplemental oxygen, baseline. She will continue to use this on a prn basis in the TCU setting. Noted to have an EBL of 300 mL during procedure; postop day 1 hemoglobin was 7.8 without significant bruising. Normal platelets. Baseline VS without tachycardia or hypotension. History of chronic anemia, preoperative hemoglobin 11. No evidence of active bleeding upon discharge; called and left a message for patient's PCP at [facility] to recheck hemoglobin tomorrow.
--- NOTE | 2025-05-09 10:44 | P.ORPN_ITS ---
Subjective Subjective Date Seen: 05/09/25 Principal diagnosis: POD1 open left shoulder reduction, humeral poly exchange Interval history: Patient reports pain to the left shoulder, tender skin. No acute events over night. Pain managed with scheduled and PRN medications, ice (though states that the ice pack is too heavy for her shoulder). DVT prophylaxis: SCDs, walking. Denies fevers, chills, aches, N/V, CP, SOB/VELASCO, or lightheadedness. Ortho Exam Narrative Exam Narrative: -Patient appears comfortable in bed; no apparent acute distress -Alert and oriented times 3 -Operative shoulder swollen; soft, supple tissues; no obvious erythema. Ecchymosis noted medial humerus, medial to the bandage. Warmth appropriate. No notable ecchymosis or obvious hematoma. -Surgical dressing is coming off distally, dry,; no obvious drainage, no erythematous streaking peripheral to the bandage -Notably tender to palpation and soft touch left shoulder. -2+ radial pulse, pink warm digits with brisk cap refill; intact dermatomes and myotomes distally including the radial, ulnar, and median nerve distributions. Also intact musculocutaneous nerve distribution Const Vital Signs, click to edit/add: Vital Signs - 24 hr 05/08/25 16:11 05/08/25 16:15 05/08/25 16:20 Temperature 97 F L Pulse Rate 97 88 85 Pulse Rate [Pulse Oximeter] Respiratory Rate 11 L 15 13 Blood Pressure 95/65 105/64 84/61 L Blood Pressure [Right Arm] Pulse Oximetry 94 96 94 Oxygen Delivery Method Nasal Cannula Oxygen Flow Rate 5 05/08/25 16:25 05/08/25 16:30 05/08/25 16:35 Temperature Pulse Rate 84 85 90 Pulse Rate [Pulse Oximeter] Respiratory Rate 14 13 16 Blood Pressure 105/61 102/52 L 109/56 L Blood Pressure [Right Arm] Pulse Oximetry 93 94 94 Oxygen Delivery Method Oxygen Flow Rate 05/08/25 16:40 05/08/25 16:45 05/08/25 17:00 Temperature 98.1 F 97.6 F Pulse Rate 87 Pulse Rate [Pulse Oximeter] 90 85 Respiratory Rate 12 18 18 Blood Pressure 106/69 Blood Pressure [Right Arm] 105/54 L 103/60 Pulse Oximetry 94 90 87 L Oxygen Delivery Method Nasal Cannula Nasal Cannula Oxygen Flow Rate 1 1 05/08/25 17:15 05/08/25 17:30 05/08/25 17:45 Temperature Pulse Rate Pulse Rate [Pulse Oximeter] 87 87 87 Respiratory Rate 20 Blood Pressure Blood Pressure [Right Arm] 94/57 L 106/53 L 97/59 L Pulse Oximetry 90 91 90 Oxygen Delivery Method Nasal Cannula Nasal Cannula Nasal Cannula Oxygen Flow Rate 1 1 1 05/08/25 18:15 05/08/25 18:45 05/08/25 19:45 Temperature 97.7 F 97.7 F 97.7 F Pulse Rate Pulse Rate [Pulse Oximeter] 92 88 90 Respiratory Rate 18 16 18 Blood Pressure Blood Pressure [Right Arm] 101/61 102/57 L 98/64 Pulse Oximetry 91 93 92 Oxygen Delivery Method Nasal Cannula Nasal Cannula Nasal Cannula Oxygen Flow Rate 1 1 1 05/08/25 20:42 05/08/25 21:45 05/08/25 22:45 Temperature 97.8 F Pulse Rate Pulse Rate [Pulse Oximeter] 90 90 96 Respiratory Rate 16 Blood Pressure Blood Pressure [Right Arm] 97/52 L 99/96 H 112/53 L Pulse Oximetry 90 91 93 Oxygen Delivery Method Nasal Cannula Nasal Cannula Nasal Cannula Oxygen Flow Rate 1 1.5 1.5 05/09/25 00:12 05/09/25 04:17 05/09/25 08:19 Temperature 97.8 F 98 F Pulse Rate Pulse Rate [Pulse Oximeter] 96 92 Respiratory Rate 16 20 18 Blood Pressure Blood Pressure [Right Arm] 108/59 L 118/64 Pulse Oximetry 92 92 91 Oxygen Delivery Method Nasal Cannula Nasal Cannula Nasal Cannula Oxygen Flow Rate 2 2 2 05/09/25 08:19 Temperature 97.9 F Pulse Rate Pulse Rate [Pulse Oximeter] 94 Respiratory Rate 18 Blood Pressure Blood Pressure [Right Arm] 123/60 Pulse Oximetry 91 Oxygen Delivery Method Nasal Cannula Oxygen Flow Rate 2 Assessment and Plan Assessment and plan (1) Status post reverse arthroplasty of left shoulder: Problem details: -POD#1 s/p left shoulder open reduction, extensive lysis of adhesions and debridement scar tissue, and humeral component poly exchange (Dr. Smallwood, 05/08/25). -previous Left reverse shoulder arthroplasty, left long head of biceps open tenotomy (03/25/25, Dr. Smallwood) -perioperative management including pain management and anticoagulation per Orthopedic surgery -encourage postoperative pulmonary hygiene - recent active smoker, COPD -PT OT consults -plan to discharge back to [facility] Status: Acute (2) Postoperative hypotension: Problem details: -noted with previous surgery as well -pressors intraoperatively -stable, not symptomatic at rest, gentle NS boluses as needed Status: Acute (3) Postoperative hypoxia: Problem details: -noted during previous surgery as well -thought to be a chronic hypoxia related to COPD. Previously discharged on supplemental oxygen to maintain oxygen saturations above 88%. Recommended outpatient evaluation to optimize COPD medications. -maintain O2 saturations 88-90% Status: Acute (4) COPD (chronic obstructive pulmonary disease): Problem details: - encourage postoperative pulmonary hygiene, incentive spirometry - RT to assist Status: Acute (5) Chronic anemia: Problem details: -Preop hemoglobin is 11.2. EBL 250 mL. Hemoglobin 7.8 on 05/09/2025, asymptomatic; no obvious hematoma or active bleed left shoulder Status: Acute (6) Alcohol use disorder: Problem details: - hospitalization in December 2024 associated with severe alcohol withdrawal requiring propofol drip and intubation. No alcohol or cannabis use since that time as she has been in SNF. Status: Acute Plan - The shoulder immobilizer was adjusted today to ensure a better fit around the humerus, torso, and wrist. This immobilizer was remain in place against the skin in order that she can have her clothes changed without compromise to the shoulder. Of note, patient was okay with me adjusting her shoulder immobilizer - modesty was respected during immobilizer adjustment. - Complete 23 hour perioperative antibiotics. - PT/OT consult for education and assistance. - Social work consult for discharge planning - Prescribed analgesics as needed - DVT prophylaxis: Walking, and SCDs - Anticipation is for discharge back to [facility] 05/09/25 if the patient remains medically stable, pain is controlled, and they are safe with mobilization. - Must remain in left extremity shoulder immobilizer until orthopedic postop visit.
== END 2025-05-09 11:12 ==
LOC: MEDSURG 05-09 09:17 → SS 05-09 12:33 → MEDSURG 05-09 12:33
PROVIDERS: Family Medicine; Physician Assistant; PCP Family Medicine; Visit Provider Orthopaedic Surgery Sports Medicine
PROC: 0RRJ0JZ Replacement of Right Shoulder Joint with Synthetic Substitute, Open Approach (ICD-10-PCS; CPT 23472; principal; 2025-05-08 11:45)
DX: M25.312 Other instability, left shoulder (principal); S43.015A Anterior dislocation of left humerus, initial encounter; Z96.612 Presence of left artificial shoulder joint; G89.18 Other acute postprocedural pain; R09.02 Hypoxemia; I95.81 Postprocedural hypotension; D64.9 Anemia, unspecified; M19.012 Primary osteoarthritis, left shoulder; M75.22 Bicipital tendinitis, left shoulder; J44.9 Chronic obstructive pulmonary disease, unspecified; F10.11 Alcohol abuse, in remission; Z52.4 Kidney donor; Z90.5 Acquired absence of kidney; Z87.891 Personal history of nicotine dependence
CPT/HCPCS: 23473; 01638; 36415; 64415; 73030; 76942; 82803; 85025; 87081; 97110; 97161; 97165; 97530; 97535; 99100; A9270; C1713; C1776; J0330; J0690; J1100; J1644; J2003; J2371; J2405; J2704; J3010; J3490; J7050; J7120